=== PATIENT | female | born 1975 | race African-American/Black ===

== ENCOUNTER 2016-03-04 18:57 | Emergency (ER) ==
[2016-03-04 19:05] VITALS: BP 116/80; TEMP 96.2; BMI 34.3
[2016-03-04] MEDS ORDERED: DILAUDID 1 MG/ML SYRINGE IM STA (19:17)
[2016-03-04] MEDS ORDERED: PHENERGAN 25 MG/ML VIAL IM STA (19:17)
--- NOTE | 2016-03-04 19:21 | ED.PDOC ---
General ED Provider: Dr. 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 Time Seen by Physician: 19:19 Mode of Arrival: Walk-In Information Source: Patient Primary Care Provider: SUZANNE MENDOZA-[facility] Nursing and Triage Documentation Reviewed and Agree: Yes Neurological Complaint Exam - Headache Complaint/Exam Onset: Gradual Symptoms Are: Still present Timing: Constant Episodes Lasting: Hours Worst Headache Ever: No Initial Severity: Severe Current Severity: Severe Location: Occipital Character: Reports: Throbbing, Typical headache Aggravating: Reports: Position change, Bright lights Alleviating: Reports: None Associated Signs and Symptoms: Denies: Dizziness, Seizure, Nausea, Vomiting, Sinus pressure, Fever, Neck pain, Neck stiffness, Decreased LOC, Visual changes Related History: Reports: Similar episode Related Surgical History: Reports: None SAH Risk Factors: Reports: None Meningitis Risk Factors: Reports: None SDH Risk Factors: Reports: None Temporal Arteritis Risk Factors: Reports: None Normal Head CT Within Last 12 Months: No (Pitutary adenoma) Temporal Artery Tenderness: Present: None Sinus Tenderness: Present: None TMJ Tenderness: Present: None Meningeal Signs Positive: No Pain on Passive Flexion-Positive Kernig's: No ROM Limited In: No Limitiations Focal Weakness: Present: None Focal Sensory Loss: Present: None Gait: Normal Nystagmus Present: No Gag Reflex Present: Yes [id number]: Normal Findings Romberg Test Positive: No Babinski Sign: Negative Right, Negative Left Differential Diagnoses: Migraine Review of Systems - Review Of Systems Constitutional: Reports: No symptoms Eyes: Reports: No symptoms Ears, Nose, Mouth, Throat: Reports: No symptoms Respiratory: Reports: No symptoms Cardiac: Reports: No symptoms GI: Reports: No symptoms : Reports: No symptoms Musculoskeletal: Reports: No symptoms Skin: Reports: No symptoms Neurological: Reports: Headache Endocrine: Reports: No symptoms Hematologic/Lymphatic: Reports: No symptoms All Other Systems: Reviewed and Negative Past Medical History - Past Medical History Previously Healthy: Yes Endocrine: Reports: None Cardiovascular: Reports: Hypertension Respiratory: Reports: None Hematological: Reports: None Gastrointestinal: Reports: GERD Genitourinary: Reports: None Neuro/Psych: Reports: Migraine Musculoskeletal: Reports: None Cancer: Reports: None Last Menstrual Period: HYSTERECTOMY Other Pertinent Past Medical History: HYPOGLYCEMIA - Surgical History General Surgical History: Reports: Hysterectomy ([id number]) - Family History Family History: Reports: Unknown - Social History Smoking Status: Never smoker Hx Substance Use: No Alcohol Screening: None - Immunizations Tetanus Shot up to Date: No Physical Exam - Physical Exam Appearance: Ill-appearing, Obese Pain Distress: Severe Eyes: RUDOLPH, EOMI ENT: Ears normal, Nose normal, Oropharynx normal Respiratory: Airway patent, Breath sounds clear, Breath sounds equal, Respirations nonlabored Cardiovascular: RRR, Pulses normal, No rub, No murmur GI/: Soft, Nontender, No masses, Bowel sounds normal, No Organomegaly Musculoskeletal: Normal strength, ROM intact, No edema, No calf tenderness Skin: Warm, Dry, Normal color Neurological: Sensation intact, Motor intact, Reflexes intact, Cranial nerves intact, Alert, Oriented Psychiatric: Affect appropriate, Mood appropriate Critical Care Note - Critical Care Note Total Time (mins): 0 Course - Course Orders, Labs, Meds: Orders Category Date Time Status Hydromorphone HCl [Dilaudid 1 mg/ml Syringe] MEDS 03/04/16 19:17 Stat 1 mg IM ONCE STA Promethazine HCl [Phenergan 25 mg/ml Vial] MEDS 03/04/16 19:17 Stat 25 mg IM ONCE STA Medications Discontinued Medications Generic Name Dose Route Start Last Admin Trade Name Grisel PRN Reason Stop Dose Admin Hydromorphone HCl 1 mg 03/04/16 19:17 Dilaudid 1 Mg/Ml Syringe IM 03/04/16 19:18 ONCE STA Promethazine HCl 25 mg 03/04/16 19:17 Phenergan 25 Mg/Ml Vial IM 03/04/16 19:18 ONCE STA Vital Signs: Temp Pulse Resp BP Pulse Ox 03/04/16 18:57 96.2 F L 97 H 16 116/80 99 Departure - Departure Time of Disposition: 20:00 Disposition: HOME SELF-CARE Discharge Problem: Migraine headache Qualifiers: Migraine type: chronic without aura Status migrainosus presence: without status migrainosus Intractability: not intractable Qualifier Code: (G43.709) Chronic migraine without aura, not intractable, without status migrainosus Condition: Stable Pt referred to PMD for follow-up: Yes Additional Instructions: Keep f/u with neurologist as scheduled Allergies/Adverse Reactions: Allergies hydrocodone bitartrate [From Vicodin] Allergy (Severe, Verified 03/04/16 19:02) Vomiting acetaminophen [From Darvocet-N] Adverse Reaction (Verified 03/04/16 19:02) Vomiting azithromycin [From Zithromax] Adverse Reaction (Verified 03/04/16 19:02) Difficulty Swallowing clarithromycin [From Biaxin] Adverse Reaction (Verified 03/04/16 19:02) Vomiting ketorolac tromethamine [From Toradol] Adverse Reaction (Verified 03/04/16 19:02) Difficulty Swallowing propoxyphene napsylate [From Darvocet-N] Adverse Reaction (Verified 03/04/16 19: 02) Vomiting sumatriptan [From Imitrex] Adverse Reaction (Verified 03/04/16 19:02) Difficulty Swallowing sumatriptan succinate [From Imitrex] Adverse Reaction (Verified 03/04/16 19:02) Difficulty Swallowing Home Medications: Ambulatory Orders Multivitamin 1 each PO DAILY 04/27/14 Promethazine HCl [Phenergan Tab] 25 mg PO QID PRN #12 tablet 05/04/15 Disposition Discussed With: Patient
== END 2016-03-04 20:19 | disposition home or self-care (01) ==
LOC: ED 18:57
DX: G43.709 Chronic migraine without aura, not intractable, without status migrainosus (principal)
CPT/HCPCS: 96372; 99282; 99283

== ENCOUNTER 2016-03-23 19:34 | Emergency (ER) ==
[2016-03-23 19:41] VITALS: BP 126/85; TEMP 98.4; BMI 34.3
[2016-03-23] MEDS ORDERED: PHENERGAN 25 MG/ML VIAL IM STA (19:42)
[2016-03-23] MEDS ORDERED: DILAUDID 2 MG/ML SYRINGE IM STA (19:42)
--- NOTE | 2016-03-23 19:46 | ED.PDOC ---
General ED Provider: Dr. VÍCTOR CHAUDHRY-ER Chief Complaint: Headache Stated Complaint: my head is killing me--im sick at my stomach--this is like my usual cruz Time Seen by Physician: 19:40 Mode of Arrival: Walk-In Information Source: Patient Exam Limitations: No limitations Primary Care [facility] and Triage Documentation Reviewed and Agree: Yes Neurological Complaint Exam - Headache Complaint/Exam Onset: Gradual Duration: 4 days Symptoms Are: Still present Timing: Constant Episodes Lasting: Days Worst Headache Ever: No Initial Severity: Mild Current Severity: Moderate Location: Temporal Character: Reports: Dull, Throbbing, Pressure, Typical headache, Migraine Aggravating: Reports: Bright lights Alleviating: Reports: None Associated Signs and Symptoms: Reports: Nausea, Vomiting. Denies: Dizziness, Seizure, Sinus pressure, Fever, Neck pain, Decreased LOC, Visual changes Related History: Reports: Similar episode ("just like my other cruz"). Denies: Recent trauma, Remote trauma Related Surgical History: Reports: None SAH Risk Factors: Reports: -chinese Meningitis Risk Factors: Reports: None SDH Risk Factors: Reports: None Temporal Arteritis Risk Factors: Reports: Female Normal Head CT Within Last 12 Months: Yes Fundoscopic Exam: Present: Normal Findings Papilledema Present: No Temporal Artery Tenderness: Present: None Sinus Tenderness: Present: None TMJ Tenderness: Present: None Glascow Coma Scale (see protocol): 15 Meningeal Signs Positive: No Pain on Passive Flexion-Positive Kernig's: No ROM Limited In: No Limitiations Focal Weakness: Present: None Focal Sensory Loss: Present: None Gait: Normal Nystagmus Present: No Gag Reflex Present: No [id number]: Normal Findings Romberg Test Positive: No Babinski Sign: Negative Right, Negative Left Heel to Toe Normal: Yes Differential Diagnoses: Migraine Review of Systems - Review Of Systems Constitutional: Reports: No symptoms Eyes: Reports: No symptoms Ears, Nose, Mouth, Throat: Reports: No symptoms Respiratory: Reports: No symptoms Cardiac: Reports: No symptoms GI: Reports: No symptoms : Reports: No symptoms Musculoskeletal: Reports: No symptoms Skin: Reports: No symptoms Neurological: Reports: Headache Endocrine: Reports: No symptoms Hematologic/Lymphatic: Reports: No symptoms All Other Systems: Reviewed and Negative Past Medical History - Past Medical History Previously Healthy: Yes Endocrine: Reports: None Cardiovascular: Reports: Hypertension Respiratory: Reports: None Hematological: Reports: None Gastrointestinal: Reports: GERD Genitourinary: Reports: None Neuro/Psych: Reports: Migraine Musculoskeletal: Reports: None Cancer: Reports: None Last Menstrual Period: 2002 Other Pertinent Past Medical History: HYPOGLYCEMIA - Surgical History General Surgical History: Reports: Hysterectomy ([id number]) - Family History Family History: Reports: Unknown - Social History Smoking Status: Never smoker Hx Substance Use: No Alcohol Screening: None Lives: With family - Immunizations Tetanus Shot up to Date: Yes Physical Exam - Physical Exam Appearance: Well-appearing, No pain distress, Well-nourished Pain Distress: Moderate Eyes: RUDOLPH, EOMI, Conjunctiva clear ENT: Ears normal Neck: Supple Respiratory: Airway patent, Breath sounds clear, Breath sounds equal, Respirations nonlabored Cardiovascular: RRR, Pulses normal, No rub, No murmur GI/: Soft, Nontender, No masses, Bowel sounds normal, No Organomegaly Musculoskeletal: Normal strength, ROM intact, No edema, No calf tenderness Skin: Warm, Dry, Normal color Neurological: Sensation intact, Motor intact, Reflexes intact, Cranial nerves intact, Alert, Oriented Psychiatric: Affect appropriate, Mood appropriate Re-Evaluation - Re-Evaluation Time of Re-Evaluation: 20:10 Status: Improved Vital Signs Stable: Yes Pain Level: 2 Appearance: NAD Lungs: Clear Skin: Warm and Dry Neuro: Alert and Oriented X3 CV: RRR Critical Care Note - Critical Care Note Total Time (mins): 0 Course - Course Orders, Labs, Meds: Orders Category Date Time Status Hydromorphone HCl/Pf [Dilaudid 2 mg/ml Syringe] MEDS 03/23/16 19:42 Discontinued 2 mg IM ONCE STA Promethazine HCl [Phenergan 25 mg/ml Vial] MEDS 03/23/16 19:42 Discontinued 25 mg IM ONCE STA Medications Discontinued Medications Generic Name Dose Route Start Last Admin Trade Name Freq PRN Reason Stop Dose Admin Hydromorphone HCl 2 mg 03/23/16 19:42 Dilaudid 2 Mg/Ml Syringe IM 03/23/16 19:43 ONCE STA Promethazine HCl 25 mg 03/23/16 19:42 Phenergan 25 Mg/Ml Vial IM 03/23/16 19:43 ONCE STA Vital Signs: Temp Pulse Resp BP Pulse Ox 03/23/16 19:34 98.4 F 104 H 20 126/85 95 Departure - Departure Time of Disposition: 19:46 Disposition: HOME SELF-CARE Discharge Problem: Migraine headache Qualifiers: Migraine type: other Status migrainosus presence: without status migrainosus Intractability: not intractable Qualifier Code: (G43.809) Other migraine, not intractable, without status migrainosus Instructions: Migraine Headache (ED) Condition: Good Pt referred to PMD for follow-up: Yes Additional Instructions: f/u with pcp Allergies/Adverse Reactions: Allergies hydrocodone bitartrate [From Vicodin] Allergy (Severe, Verified 03/23/16 19:39) Vomiting acetaminophen [From Darvocet-N] Adverse Reaction (Verified 03/23/16 19:39) Vomiting azithromycin [From Zithromax] Adverse Reaction (Verified 03/23/16 19:39) Difficulty Swallowing clarithromycin [From Biaxin] Adverse Reaction (Verified 03/23/16 19:39) Vomiting ketorolac tromethamine [From Toradol] Adverse Reaction (Verified 03/23/16 19:39) Difficulty Swallowing propoxyphene napsylate [From Darvocet-N] Adverse Reaction (Verified 03/23/16 19: 39) Vomiting sumatriptan [From Imitrex] Adverse Reaction (Verified 03/23/16 19:39) Difficulty Swallowing sumatriptan succinate [From Imitrex] Adverse Reaction (Verified 03/23/16 19:39) Difficulty Swallowing Home Medications: Ambulatory Orders Multivitamin 1 each PO DAILY 04/27/14 Promethazine HCl [Phenergan Tab] 25 mg PO QID PRN #12 tablet 05/04/15 Disposition Discussed With: Patient
== END 2016-03-23 20:40 | disposition home or self-care (01) ==
LOC: ED 19:34
DX: G43.809 Other migraine, not intractable, without status migrainosus (principal)
CPT/HCPCS: 96372; 99282; 99283

== ENCOUNTER 2016-04-08 17:44 | Emergency (ER) ==
[2016-04-08 17:49] VITALS: BP 120/79; TEMP 97.4; BMI 33.5
[2016-04-08] MEDS ORDERED: DILAUDID 2 MG/ML SYRINGE IM STA (19:25)
[2016-04-08] MEDS ORDERED: PHENERGAN 25 MG/ML VIAL IM STA (19:25)
--- NOTE | 2016-04-08 20:14 | ED.PDOC ---
General ED Provider: Dr. SAVANNA BOWMAN Chief Complaint: Headache Stated Complaint: patient state she has had headches for the past two days. she has has these headache for a while does not want to go to pain management ' they do bad things" PCP and Neurosurgeon would not prescribe any pain medications. She is waiting to get brain surgery and eye surgery. Most Recent MRI Showed EMPTY sella. Time Seen by Physician: 19:40 Mode of Arrival: Walk-In Information Source: Patient [facility] and Triage Documentation Reviewed and Agree: Yes Review of Systems - Review Of Systems Constitutional: Reports: No symptoms Eyes: Reports: No symptoms Ears, Nose, Mouth, Throat: Reports: No symptoms Respiratory: Reports: No symptoms Cardiac: Reports: No symptoms GI: Reports: Nausea : Reports: No symptoms Musculoskeletal: Reports: No symptoms Skin: Reports: No symptoms Neurological: Reports: Headache Endocrine: Reports: No symptoms Hematologic/Lymphatic: Reports: No symptoms All Other Systems: Reviewed and Negative Past Medical History - Past Medical History Previously Healthy: Yes Endocrine: Reports: None Cardiovascular: Reports: Hypertension Respiratory: Reports: None Hematological: Reports: None Gastrointestinal: Reports: GERD Genitourinary: Reports: None Neuro/Psych: Reports: Migraine Musculoskeletal: Reports: None Cancer: Reports: None Last Menstrual Period: hysterectomy Other Pertinent Past Medical History: HYPOGLYCEMIA - Surgical History General Surgical History: Reports: Hysterectomy ([id number]) - Family History Family History: Reports: Unknown - Social History Smoking Status: Never smoker Hx Substance Use: No Alcohol Screening: None Physical Exam - Physical Exam Appearance: Ill-appearing, Obese Pain Distress: Severe Eyes: RUDOLPH, EOMI, Conjunctiva clear Neck: Supple Respiratory: Airway patent, Breath sounds clear, Breath sounds equal, Respirations nonlabored Cardiovascular: Pulses normal, Tachycardia GI/: Soft Musculoskeletal: Normal strength, ROM intact, No edema, No calf tenderness Skin: Warm, Dry, Normal color Neurological: Sensation intact, Motor intact, Reflexes intact, Cranial nerves intact, Alert, Oriented Psychiatric: Anxious Re-Evaluation - Re-Evaluation Time of Re-Evaluation: 20:18 Status: Improved Critical Care Note - Critical Care Note Total Time (mins): 0 Course - Course Orders, Labs, Meds: Orders Category Date Time Status Hydromorphone HCl/Pf [Dilaudid 2 mg/ml Syringe] MEDS 04/08/16 19:25 Discontinued 2 mg IM ONCE STA Promethazine HCl [Phenergan 25 mg/ml Vial] MEDS 04/08/16 19:25 Discontinued 25 mg IM ONCE STA Medications Discontinued Medications Generic Name Dose Route Start Last Admin Trade Name Freq PRN Reason Stop Dose Admin Hydromorphone HCl 2 mg 04/08/16 19:25 04/08/16 19:38 Dilaudid 2 Mg/Ml Syringe IM 04/08/16 19:26 2 mg ONCE STA Administration Promethazine HCl 25 mg 04/08/16 19:25 04/08/16 19:35 Phenergan 25 Mg/Ml Vial IM 04/08/16 19:26 25 mg ONCE STA Administration Vital Signs: Temp Pulse Resp BP Pulse Ox 04/08/16 17:44 97.4 F L 106 H 20 120/79 98 Departure - Departure Time of Disposition: 20:14 Disposition: HOME SELF-CARE Discharge Problem: Headache Instructions: General Headache (ED) Condition: Fair Pt referred to PMD for follow-up: Yes Additional Instructions: FOLLOW UP WITH YOUR PCP FOR REFERRAL TO PAIN MANAGEMENT OF THIS CHORIC PAIN THERE ARE TREATMENT THAT PAIN MANAGEMENT CAN PROVIDE TO GIVE YOU THE RELIEF YOU NEED KEEP APT WITH BRAIN SURGEON. Allergies/Adverse Reactions: Allergies hydrocodone bitartrate [From Vicodin] Allergy (Severe, Verified 04/08/16 17:51) Vomiting acetaminophen [From Darvocet-N] Adverse Reaction (Verified 04/08/16 17:51) Vomiting azithromycin [From Zithromax] Adverse Reaction (Verified 04/08/16 17:51) Difficulty Swallowing clarithromycin [From Biaxin] Adverse Reaction (Verified 04/08/16 17:51) Vomiting ketorolac tromethamine [From Toradol] Adverse Reaction (Verified 04/08/16 17:51) Difficulty Swallowing propoxyphene napsylate [From Darvocet-N] Adverse Reaction (Verified 04/08/16 17: 51) Vomiting sumatriptan [From Imitrex] Adverse Reaction (Verified 04/08/16 17:51) Difficulty Swallowing sumatriptan succinate [From Imitrex] Adverse Reaction (Verified 04/08/16 17:51) Difficulty Swallowing Home Medications: Ambulatory Orders Multivitamin 1 each PO DAILY 04/27/14 Promethazine HCl [Phenergan Tab] 25 mg PO QID PRN #12 tablet 05/04/15 Disposition Discussed With: Patient
== END 2016-04-08 20:24 | disposition home or self-care (01) ==
LOC: ED 17:44
DX: G44.229 Chronic tension-type headache, not intractable (principal); I10 Essential (primary) hypertension
CPT/HCPCS: 96372; 99283

== ENCOUNTER 2016-04-30 19:27 | Emergency (ER) ==
[2016-04-30] MEDS ORDERED: PHENERGAN 25 MG/ML VIAL IM STA (19:33)
[2016-04-30] MEDS ORDERED: DILAUDID 2 MG/ML SYRINGE IM STA (19:33)
[2016-04-30 19:34] VITALS: BP 143/95; TEMP 97.8; BMI 34.8
--- NOTE | 2016-04-30 19:36 | ED.PDOC ---
General ED Provider: Dr. VÍCTOR CHAUDHRY-ER Chief Complaint: Headache Stated Complaint: ponce got a migraine Time Seen by Physician: 19:30 Mode of Arrival: Walk-In Information Source: Patient Exam Limitations: No limitations Nursing and Triage Documentation Reviewed and Agree: Yes Neurological Complaint Exam - Headache Complaint/Exam Onset: Gradual Duration: several hours Symptoms Are: Still present Timing: Constant Episodes Lasting: Hours Worst Headache Ever: No Initial Severity: Mild Current Severity: Moderate Location: Diffuse Character: Reports: Dull, Throbbing, Migraine Aggravating: Reports: Bright lights Alleviating: Reports: None Associated Signs and Symptoms: Reports: Nausea, Vomiting. Denies: Dizziness, Seizure, Sinus pressure, Fever, Neck pain, Neck stiffness, Decreased LOC, Visual changes Related History: Reports: Similar episode Related Surgical History: Reports: None SAH Risk Factors: Reports: None Meningitis Risk Factors: Reports: None SDH Risk Factors: Reports: None Temporal Arteritis Risk Factors: Reports: Female Normal Head CT Within Last 12 Months: Yes Fundoscopic Exam: Present: Normal Findings Papilledema Present: No Temporal Artery Tenderness: Present: None Sinus Tenderness: Present: None TMJ Tenderness: Present: None Glascow Coma Scale (see protocol): 15 Meningeal Signs Positive: No Pain on Passive Flexion-Positive Kernig's: No ROM Limited In: No Limitiations Focal Weakness: Present: None Focal Sensory Loss: Present: None Gait: Normal Nystagmus Present: No Gag Reflex Present: Yes [id number]: Normal Findings Romberg Test Positive: No Babinski Sign: Negative Right, Negative Left Heel to Toe Normal: Yes Differential Diagnoses: Migraine Review of Systems - Review Of Systems Constitutional: Reports: No symptoms Eyes: Reports: No symptoms Ears, Nose, Mouth, Throat: Reports: No symptoms Respiratory: Reports: No symptoms Cardiac: Reports: No symptoms GI: Reports: Nausea : Reports: No symptoms Musculoskeletal: Reports: No symptoms Skin: Reports: No symptoms Neurological: Reports: Headache Endocrine: Reports: No symptoms Hematologic/Lymphatic: Reports: No symptoms All Other Systems: Reviewed and Negative Past Medical History - Past Medical History Previously Healthy: Yes Endocrine: Reports: None Cardiovascular: Reports: Hypertension Respiratory: Reports: None Hematological: Reports: None Gastrointestinal: Reports: GERD Genitourinary: Reports: None Neuro/Psych: Reports: Migraine Musculoskeletal: Reports: None Cancer: Reports: None Last Menstrual Period: none Other Pertinent Past Medical History: HYPOGLYCEMIA - Surgical History General Surgical History: Reports: Hysterectomy ([id number]) - Family History Family History: Reports: Unknown - Social History Smoking Status: Never smoker Hx Substance Use: No Alcohol Screening: None Lives: With family Physical Exam - Physical Exam Appearance: Well-appearing, No pain distress, Well-nourished Pain Distress: Moderate Eyes: RUDOLPH, EOMI, Conjunctiva clear ENT: Ears normal, Nose normal, Oropharynx normal Neck: Supple Respiratory: Airway patent, Breath sounds clear, Breath sounds equal, Respirations nonlabored Cardiovascular: RRR, Pulses normal, No rub, No murmur GI/: Soft, Nontender, No masses, Bowel sounds normal, No Organomegaly Musculoskeletal: Normal strength, ROM intact, No edema, No calf tenderness Skin: Warm, Dry, Normal color Neurological: Sensation intact Psychiatric: Affect appropriate, Mood appropriate Re-Evaluation - Re-Evaluation Time of Re-Evaluation: 20:00 Status: Improved Vital Signs Stable: Yes Pain Level: 1 Appearance: NAD Lungs: Clear Skin: Warm and Dry Neuro: Alert and Oriented X3 CV: RRR Critical Care Note - Critical Care Note Total Time (mins): 0 Course - Course Orders, Labs, Meds: Orders Category Date Time Status Hydromorphone HCl/Pf [Dilaudid 2 mg/ml Syringe] MEDS 04/30/16 19:33 Discontinued 2 mg IM ONCE STA Promethazine HCl [Phenergan 25 mg/ml Vial] MEDS 04/30/16 19:33 Discontinued 25 mg IM ONCE STA Medications Discontinued Medications Generic Name Dose Route Start Last Admin Trade Name Freq PRN Reason Stop Dose Admin Hydromorphone HCl 2 mg 04/30/16 19:33 Dilaudid 2 Mg/Ml Syringe IM 04/30/16 19:34 ONCE STA Promethazine HCl 25 mg 04/30/16 19:33 Phenergan 25 Mg/Ml Vial IM 04/30/16 19:34 ONCE STA Vital Signs: Temp Pulse Resp BP Pulse Ox 04/30/16 19:28 97.8 F 104 H 18 143/95 H 99 Departure - Departure Time of Disposition: 19:36 Disposition: HOME SELF-CARE Discharge Problem: Migraine headache Qualifiers: Migraine type: unspecified Status migrainosus presence: without status migrainosus Intractability: not intractable Qualifier Code: (G43.909) Migraine, unspecified, not intractable, without status migrainosus Instructions: Migraine Headache (ED) Condition: Good Pt referred to PMD for follow-up: Yes Additional Instructions: f/u wtih pcp Allergies/Adverse Reactions: Allergies hydrocodone bitartrate [From Vicodin] Allergy (Severe, Verified 04/08/16 17:51) Vomiting acetaminophen [From Darvocet-N] Adverse Reaction (Verified 04/08/16 17:51) Vomiting azithromycin [From Zithromax] Adverse Reaction (Verified 04/08/16 17:51) Difficulty Swallowing clarithromycin [From Biaxin] Adverse Reaction (Verified 04/08/16 17:51) Vomiting ketorolac tromethamine [From Toradol] Adverse Reaction (Verified 04/08/16 17:51) Difficulty Swallowing propoxyphene napsylate [From Darvocet-N] Adverse Reaction (Verified 04/08/16 17: 51) Vomiting sumatriptan [From Imitrex] Adverse Reaction (Verified 04/08/16 17:51) Difficulty Swallowing sumatriptan succinate [From Imitrex] Adverse Reaction (Verified 04/08/16 17:51) Difficulty Swallowing Home Medications: Ambulatory Orders Multivitamin 1 each PO DAILY 04/27/14 Promethazine HCl [Phenergan Tab] 25 mg PO QID PRN #12 tablet 05/04/15 Disposition Discussed With: Patient
== END 2016-04-30 19:57 | disposition home or self-care (01) ==
LOC: ED 19:27
DX: G43.909 Migraine, unspecified, not intractable, without status migrainosus (principal)
CPT/HCPCS: 96372; 99282

== ENCOUNTER 2016-06-03 08:12 | Emergency (ER) ==
[2016-06-03 08:19] VITALS: BP 131/83; TEMP 98.8; BMI 35.5
[2016-06-03] MEDS ORDERED: ZOFRAN 4 MG/2 ML IM STA (08:38)
--- NOTE | 2016-06-03 08:46 | ED.PDOC ---
General ED Provider: Dr. BRE RODRIGUEZ Chief Complaint: Headache Stated Complaint: left sided facial pain and headache post sinus surgey Time Seen by Physician: 08:16 (sinus surgery on may 05) Mode of Arrival: Walk-In Information Source: Patient Exam Limitations: No limitations [facility] Nursing and Triage Documentation Reviewed and Agree: Yes Neurological Complaint Exam - Headache Complaint/Exam Onset: Gradual Duration: 1 day Symptoms Are: Still present Timing: Constant Episodes Lasting: Hours Worst Headache Ever: No Initial Severity: Moderate Current Severity: Moderate Location: Left Character: Reports: Pressure, Typical headache Alleviating: Reports: None Associated Signs and Symptoms: Denies: Dizziness, Seizure, Nausea, Vomiting, Sinus pressure, Fever, Neck pain, Neck stiffness, Decreased LOC, Visual changes Related Surgical History: Reports: None (but has had sinus surgery) SAH Risk Factors: Reports: -cuban Meningitis Risk Factors: Reports: None SDH Risk Factors: Reports: None Temporal Arteritis Risk Factors: Reports: None Normal Head CT Within Last 12 Months: No Fundoscopic Exam: Present: Normal Findings Papilledema Present: No Temporal Artery Tenderness: Present: None Sinus Tenderness: Present: None TMJ Tenderness: Present: None Glascow Coma Scale (see protocol): 15 Meningeal Signs Positive: No Pain on Passive Flexion-Positive Kernig's: No ROM Limited In: No Limitiations Focal Weakness: Present: None Focal Sensory Loss: Present: None Gait: Normal Nystagmus Present: No Gag Reflex Present: Yes Differential Diagnoses: Sinus Headache Review of Systems - Review Of Systems Constitutional: Reports: No symptoms Eyes: Reports: No symptoms Ears, Nose, Mouth, Throat: Reports: No symptoms Respiratory: Reports: No symptoms Cardiac: Reports: No symptoms GI: Reports: No symptoms : Reports: No symptoms Musculoskeletal: Reports: No symptoms Skin: Reports: No symptoms Neurological: Reports: Headache (left max sinus pain) Endocrine: Reports: No symptoms Hematologic/Lymphatic: Reports: No symptoms All Other Systems: Reviewed and Negative Past Medical History - Past Medical History Previously Healthy: Yes Endocrine: Reports: None Cardiovascular: Reports: Hypertension Respiratory: Reports: None Hematological: Reports: None Gastrointestinal: Reports: GERD Genitourinary: Reports: None Neuro/Psych: Reports: Migraine Musculoskeletal: Reports: None Cancer: Reports: None Last Menstrual Period: n/a Other Pertinent Past Medical History: HYPOGLYCEMIA - Surgical History General Surgical History: Reports: Hysterectomy ([id number]) - Family History Family History: Reports: Unknown - Social History Smoking Status: Never smoker Hx Substance Use: No Alcohol Screening: None Physical Exam - Physical Exam Appearance: Well-appearing, No pain distress, Well-nourished Eyes: RUDOLPH, EOMI, Conjunctiva clear ENT: Ears normal, Nose normal, Oropharynx normal Respiratory: Airway patent, Breath sounds clear, Breath sounds equal, Respirations nonlabored Cardiovascular: RRR, Pulses normal, No rub, No murmur GI/: Soft, Nontender, No masses, Bowel sounds normal, No Organomegaly Musculoskeletal: Normal strength, ROM intact, No edema, No calf tenderness Skin: Warm, Dry, Normal color Neurological: Sensation intact, Motor intact, Reflexes intact, Cranial nerves intact, Alert, Oriented Psychiatric: Affect appropriate, Mood appropriate Physician Notification - Case Discussed Physician Notified: PMD PA SHE WILL MAKE AN APPOINTMENT FOR PT Time of Notification: 08:47 Critical Care Note - Critical Care Note Total Time (mins): 0 Course - Course Orders, Labs, Meds: Orders Category Date Time Status Morphine Sulfate [Morphine 4 mg/ml Syringe] MEDS 06/03/16 08:38 Discontinued 4 mg IM ONCE STA Ondansetron HCl/Pf [Zofran 4 mg/2 ml] MEDS 06/03/16 08:38 Discontinued 4 mg IM ONCE STA Medications Discontinued Medications Generic Name Dose Route Start Last Admin Trade Name Freq PRN Reason Stop Dose Admin Morphine Sulfate 4 mg 06/03/16 08:38 06/03/16 08:48 Morphine 4 Mg/Ml Syringe IM 06/03/16 08:39 4 mg ONCE STA Administration Ondansetron HCl 4 mg 06/03/16 08:38 06/03/16 08:50 Zofran 4 Mg/2 Ml IM 06/03/16 08:39 4 mg ONCE STA Administration Vital Signs: Temp Pulse Resp BP Pulse Ox 06/03/16 08:13 98.8 F 103 H 16 131/83 97 Departure - Departure Time of Disposition: 10:00 Disposition: HOME SELF-CARE Discharge Problem: Headache Instructions: Acute Headache (ED) Condition: Good Pt referred to PMD for follow-up: Yes Additional Instructions: Please call your Family Physician as soon as possible to schedule a follow-up appointment. YOU HAVE AN APPOINTMENT TODAY WITH [facility] AT 1 PM TODAY AT [facility]. Allergies/Adverse Reactions: Allergies hydrocodone bitartrate [From Vicodin] Allergy (Severe, Verified 06/03/16 08:19) Vomiting acetaminophen [From Darvocet-N] Adverse Reaction (Verified 06/03/16 08:19) Vomiting azithromycin [From Zithromax] Adverse Reaction (Verified 06/03/16 08:19) Difficulty Swallowing clarithromycin [From Biaxin] Adverse Reaction (Verified 06/03/16 08:19) Vomiting ketorolac tromethamine [From Toradol] Adverse Reaction (Verified 06/03/16 08:19) Difficulty Swallowing propoxyphene napsylate [From Darvocet-N] Adverse Reaction (Verified 06/03/16 08: 19) Vomiting sumatriptan [From Imitrex] Adverse Reaction (Verified 06/03/16 08:19) Difficulty Swallowing sumatriptan succinate [From Imitrex] Adverse Reaction (Verified 06/03/16 08:19) Difficulty Swallowing Home Medications: Ambulatory Orders Multivitamin 1 each PO DAILY 04/27/14 Promethazine HCl [Phenergan Tab] 25 mg PO QID PRN #12 tablet 05/04/15 Cephalexin 500 mg PO QID 06/03/16 Oxycodone-Acetaminophen 5-325 [Percocet 5-325] 1 tab PO Q4H PRN 06/03/16
[2016-06-03] MEDS: MORPHINE 4 MG/ML SYRINGE IM STA ×2 (08:48)
== END 2016-06-03 10:07 | disposition home or self-care (01) ==
LOC: ED 08:12
DX: R51 Headache (principal); Z98.890 Other specified postprocedural states
CPT/HCPCS: 96372; 99283

== ENCOUNTER 2016-06-24 19:20 | Emergency (ER) ==
[2016-06-24 19:20] VITALS: BMI 35.5
[2016-06-24 19:31] VITALS: BP 121/84; TEMP 97.3
[2016-06-24] MEDS ORDERED: PHENERGAN 25 MG/ML VIAL 25 MG in SODIUM CHLORIDE 50 ML IV STA (19:32)
[2016-06-24] MEDS ORDERED: SODIUM CHLORIDE 1,000 ML IV STA (19:32)
[2016-06-24] MEDS ORDERED: DILAUDID 1 MG/ML SYRINGE IVP STA (19:32)
[2016-06-24] MEDS ORDERED: PHENERGAN 25 MG/ML VIAL ONE (19:40)
--- NOTE | 2016-06-24 20:21 | ED.PDOC ---
General ED Provider: Dr. VÍCTOR CHAUDHRY-ER Chief Complaint: Headache Stated Complaint: my head hurts--i had a lp last week Time Seen by Physician: 19:30 Mode of Arrival: Walk-In Information Source: Patient Exam Limitations: No limitations Nursing and Triage Documentation Reviewed and Agree: Yes Neurological Complaint Exam - Headache Complaint/Exam Onset: Gradual Duration: 2 days Symptoms Are: Still present Timing: Constant Worst Headache Ever: No Initial Severity: Mild Current Severity: Moderate Location: Diffuse Character: Reports: Dull, Throbbing, Pressure Aggravating: Reports: Bright lights Alleviating: Reports: None Associated Signs and Symptoms: Reports: Nausea. Denies: Dizziness, Seizure, Vomiting, Sinus pressure, Fever, Neck pain, Neck stiffness, Decreased LOC, Visual changes Related Surgical History: Reports: None SAH Risk Factors: Reports: None Meningitis Risk Factors: Reports: None SDH Risk Factors: Reports: None Temporal Arteritis Risk Factors: Reports: Female, Normal Head CT Within Last 12 Months: Yes Fundoscopic Exam: Present: Normal Findings Papilledema Present: No Temporal Artery Tenderness: Present: None Sinus Tenderness: Present: None TMJ Tenderness: Present: None Glascow Coma Scale (see protocol): 15 Meningeal Signs Positive: No Pain on Passive Flexion-Positive Kernig's: No ROM Limited In: No Limitiations Focal Weakness: Present: None Focal Sensory Loss: Present: None Gait: Normal Nystagmus Present: No Gag Reflex Present: Yes [id number]: Normal Findings Romberg Test Positive: No Babinski Sign: Negative Right, Negative Left Heel to Toe Normal: Yes Differential Diagnoses: Migraine, Other Review of Systems - Review Of Systems Constitutional: Reports: No symptoms Eyes: Reports: No symptoms Ears, Nose, Mouth, Throat: Reports: No symptoms Respiratory: Reports: No symptoms Cardiac: Reports: No symptoms GI: Reports: No symptoms : Reports: No symptoms Musculoskeletal: Reports: No symptoms Skin: Reports: No symptoms Neurological: Reports: Headache Endocrine: Reports: No symptoms Hematologic/Lymphatic: Reports: No symptoms All Other Systems: Reviewed and Negative Past Medical History - Past Medical History Previously Healthy: Yes Endocrine: Reports: None Cardiovascular: Reports: Hypertension Respiratory: Reports: None Hematological: Reports: None Gastrointestinal: Reports: GERD Genitourinary: Reports: None Neuro/Psych: Reports: Migraine Musculoskeletal: Reports: None Cancer: Reports: None Last Menstrual Period: none Other Pertinent Past Medical History: HYPOGLYCEMIA - Surgical History General Surgical History: Reports: Hysterectomy ([id number]) - Family History Family History: Reports: Unknown - Social History Smoking Status: Never smoker Hx Substance Use: No Alcohol Screening: None Lives: With family Physical Exam - Physical Exam Appearance: Well-appearing, No pain distress, Well-nourished Pain Distress: Moderate Eyes: RUDOLPH, EOMI, Conjunctiva clear ENT: Ears normal, Nose normal, Oropharynx normal Neck: Supple Respiratory: Airway patent, Breath sounds clear, Breath sounds equal, Respirations nonlabored Cardiovascular: RRR, Pulses normal, No rub, No murmur GI/: Soft Musculoskeletal: Normal strength, ROM intact, No edema, No calf tenderness Skin: Warm Neurological: Sensation intact, Motor intact, Reflexes intact, Cranial nerves intact, Alert, Oriented Psychiatric: Affect appropriate, Mood appropriate Re-Evaluation - Re-Evaluation Time of Re-Evaluation: 20:21 Status: Improved (no fever) Vital Signs Stable: Yes Pain Level: 1 Appearance: NAD Lungs: Clear Skin: Warm and Dry Neuro: Alert and Oriented X3 CV: RRR Critical Care Note - Critical Care Note Total Time (mins): 0 Course - Course Orders, Labs, Meds: Orders Category Date Time Status ED IV/MEDIPORT/POWERPORT .ONCE EMERGENCY 06/24/16 19:32 Active 0.9 % Sodium Chloride [Saline Flush] MEDS 06/24/16 19:32 Ordered 1 syr IVF PRN PRN Hydromorphone HCl [Dilaudid 1 mg/ml Syringe] MEDS 06/24/16 19:32 Discontinued 1 mg IVP ONCE STA Promethazine HCl [Phenergan 25 mg/ml Vial] MEDS 06/24/16 19:40 Discontinued 25 mg .ROUTE .STK-MED ONE Promethazine HCl [Phenergan 25 mg/ml Vial] 25 mg MEDS 06/24/16 19:32 Discontinued 0.9 % Sodium Chloride [Sodium Chloride] 50 ml IV ONCE Sodium Chloride 0.9% [Sodium Chloride] 1,000 ml MEDS 06/24/16 19:32 Active IV BOLUS Medications Generic Name Dose Route Start Last Admin Trade Name Freq PRN Reason Stop Dose Admin Sodium Chloride 1,000 mls @ 1,000 mls/hr 06/24/16 19:32 06/24/16 19:55 Sodium Chloride IV 06/24/16 20:31 1,000 mls/hr BOLUS STA Administration Sodium Chloride 1 syr 06/24/16 19:32 06/24/16 19:54 Saline Flush IVF 1 syr PRN PRN Administration To flush IV Discontinued Medications Generic Name Dose Route Start Last Admin Trade Name Freq PRN Reason Stop Dose Admin Hydromorphone HCl 1 mg 06/24/16 19:32 06/24/16 19:54 Dilaudid 1 Mg/Ml Syringe IVP 06/24/16 19:33 1 mg ONCE STA Administration Promethazine HCl 25 mg/ Sodium 51 mls @ 75 mls/hr 06/24/16 19:32 06/24/16 19: 58 Chloride IV 06/24/16 20:12 75 mls/hr ONCE STA Administration Vital Signs: Temp Pulse Resp BP Pulse Ox 06/24/16 19:29 97.3 F L 98 H 16 121/84 99 Departure - Departure Time of Disposition: 20:21 Disposition: HOME SELF-CARE Discharge Problem: Headache following lumbar puncture Instructions: General Headache (ED) Condition: Good Pt referred to PMD for follow-up: Yes Additional Instructions: lie flight tonight--fljuids--f/u wtih dr krishna Allergies/Adverse Reactions: Allergies hydrocodone bitartrate [From Vicodin] Allergy (Severe, Verified 06/24/16 19:32) Vomiting acetaminophen [From Darvocet-N] Adverse Reaction (Verified 06/24/16 19:32) Vomiting azithromycin [From Zithromax] Adverse Reaction (Verified 06/24/16 19:32) Difficulty Swallowing clarithromycin [From Biaxin] Adverse Reaction (Verified 06/24/16 19:32) Vomiting ketorolac tromethamine [From Toradol] Adverse Reaction (Verified 06/24/16 19:32) Difficulty Swallowing propoxyphene napsylate [From Darvocet-N] Adverse Reaction (Verified 06/24/16 19: 32) Vomiting sumatriptan [From Imitrex] Adverse Reaction (Verified 06/24/16 19:32) Difficulty Swallowing sumatriptan succinate [From Imitrex] Adverse Reaction (Verified 06/24/16 19:32) Difficulty Swallowing Home Medications: Ambulatory Orders Multivitamin 1 each PO DAILY 04/27/14 Promethazine HCl [Phenergan Tab] 25 mg PO QID PRN #12 tablet 05/04/15 Cephalexin 500 mg PO QID 06/03/16 Oxycodone-Acetaminophen 5-325 [Percocet 5-325] 1 tab PO Q4H PRN 06/03/16 Acetazolamide [Diamox] 250 mg PO Q12HR 06/24/16 Disposition Discussed With: Patient
== END 2016-06-24 20:43 | disposition home or self-care (01) ==
LOC: ED 19:20
DX: G97.1 Other reaction to spinal and lumbar puncture (principal); Y84.4 Aspiration of fluid as the cause of abnormal reaction of the patient, or of later complication, without mention of misadventure at the time of the procedure
CPT/HCPCS: 96365; 96375; 99282

== ENCOUNTER 2016-06-26 14:53 | Emergency (ER) ==
[2016-06-26] MEDS ORDERED: NORCO 10-325 PO STA (15:10)
[2016-06-26 15:21] VITALS: BP 126/83; TEMP 97.6; BMI 35.0
--- NOTE | 2016-06-26 15:43 | CT ---
EXAM: CT of the head without contrast History: Headache. Comparison: Head CT 04/05/2012 Technique: Multiplanar CT images through the head were obtained without the administration of IV co ntrast Findings: Mucosal thickening and small amount of fluid seen within the left maxillary sinus. Masto id air cells are generally clear. No acute calvarial abnormalities. Intracranially the ventricular and cisternal spaces are normal in size, shape and configuration for a patient of this age. No dominant mass or midline shift. No hydrocephalous. No acute intracrania l hemorrhage or abnormal extraaxial fluid collections. Impression: 1. No acute intracranial process. 2. Left maxillary sinus disease.
--- NOTE | 2016-06-26 15:44 | ED.PDOC ---
General ED Provider: Dr. BRE RODRIGUEZ Chief Complaint: Headache Stated Complaint: headache post L/P Time Seen by Physician: 15:00 Mode of Arrival: Walk-In Information Source: Patient Exam Limitations: No limitations Nursing and Triage Documentation Reviewed and Agree: Yes Neurological Complaint Exam - Headache Complaint/Exam Onset: Gradual Duration: 6 DAYS Symptoms Are: Still present Timing: Intermittent Episodes Lasting: Days Worst Headache Ever: No Initial Severity: Moderate Current Severity: Mild Location: Frontal, Temporal Character: Reports: Dull Aggravating: Reports: None Alleviating: Reports: None Associated Signs and Symptoms: Denies: Dizziness, Seizure, Nausea, Vomiting, Sinus pressure, Fever, Neck pain, Neck stiffness, Decreased LOC, Visual changes Related Surgical History: Reports: None SAH Risk Factors: Reports: -brazilian, Hypertension Meningitis Risk Factors: Reports: None SDH Risk Factors: Reports: None Temporal Arteritis Risk Factors: Reports: Female Normal Head CT Within Last 12 Months: Yes (CODIE ) Fundoscopic Exam: Present: Normal Findings Papilledema Present: No Temporal Artery Tenderness: Present: None Sinus Tenderness: Present: None TMJ Tenderness: Present: None Glascow Coma Scale (see protocol): 15 Meningeal Signs Positive: No Pain on Passive Flexion-Positive Kernig's: No ROM Limited In: No Limitiations Focal Weakness: Present: None Focal Sensory Loss: Present: None Gait: Normal Nystagmus Present: No Gag Reflex Present: Yes [id number]: Normal Findings Romberg Test Positive: No Babinski Sign: Negative Right, Negative Left Heel to Toe Normal: No Differential Diagnoses: Migraine Review of Systems - Review Of Systems Constitutional: Reports: No symptoms Eyes: Reports: No symptoms Ears, Nose, Mouth, Throat: Reports: No symptoms Respiratory: Reports: No symptoms Cardiac: Reports: No symptoms GI: Reports: No symptoms : Reports: No symptoms Musculoskeletal: Reports: No symptoms Skin: Reports: No symptoms Neurological: Reports: No symptoms Endocrine: Reports: No symptoms Hematologic/Lymphatic: Reports: No symptoms All Other Systems: Reviewed and Negative Past Medical History - Past Medical History Previously Healthy: Yes Endocrine: Reports: None Cardiovascular: Reports: Hypertension Respiratory: Reports: None Hematological: Reports: None Gastrointestinal: Reports: GERD Genitourinary: Reports: None Neuro/Psych: Reports: Migraine Musculoskeletal: Reports: None Cancer: Reports: None Last Menstrual Period: hysterectomy Other Pertinent Past Medical History: HYPOGLYCEMIA - Surgical History General Surgical History: Reports: Hysterectomy ([id number]) - Family History Family History: Reports: Unknown - Social History Smoking Status: Never smoker Hx Substance Use: No Alcohol Screening: None Physical Exam - Physical Exam Appearance: Well-appearing, No pain distress, Well-nourished Eyes: RUDOLPH, EOMI, Conjunctiva clear ENT: Ears normal, Nose normal, Oropharynx normal Respiratory: Airway patent, Breath sounds clear, Breath sounds equal, Respirations nonlabored Cardiovascular: RRR, Pulses normal, No rub, No murmur GI/: Soft, Nontender, No masses, Bowel sounds normal, No Organomegaly Musculoskeletal: Normal strength, ROM intact, No edema, No calf tenderness Skin: Warm, Dry, Normal color Neurological: Sensation intact, Motor intact, Reflexes intact, Cranial nerves intact, Alert, Oriented Psychiatric: Affect appropriate, Mood appropriate Interpretation - Radiology Interpretation Radiology Interpretation By: Radiologist Critical Care Note - Critical Care Note Total Time (mins): 0 Course - Course Orders, Labs, Meds: Orders Category Date Time Status CT HEAD W/O CONTRAST Stat RADS 06/26/16 15:09 Ordered Vital Signs: Temp Pulse Resp BP Pulse Ox 06/26/16 15:03 97.6 F 117 H 20 126/83 98 Departure - Departure Time of Disposition: 15:44 Disposition: HOME SELF-CARE Discharge Problem: Headache Instructions: Acute Headache (ED) Condition: Good Pt referred to PMD for follow-up: No Additional Instructions: Please call your Family Physician as soon as possible to schedule a follow-up appointment. Allergies/Adverse Reactions: Allergies hydrocodone bitartrate [From Vicodin] Allergy (Severe, Verified 06/26/16 15:13) Vomiting acetaminophen [From Darvocet-N] Adverse Reaction (Verified 06/26/16 15:13) Vomiting azithromycin [From Zithromax] Adverse Reaction (Verified 06/26/16 15:13) Difficulty Swallowing clarithromycin [From Biaxin] Adverse Reaction (Verified 06/26/16 15:13) Vomiting ketorolac tromethamine [From Toradol] Adverse Reaction (Verified 06/26/16 15:13) Difficulty Swallowing propoxyphene napsylate [From Darvocet-N] Adverse Reaction (Verified 06/26/16 15: 13) Vomiting sumatriptan [From Imitrex] Adverse Reaction (Verified 06/26/16 15:13) Difficulty Swallowing sumatriptan succinate [From Imitrex] Adverse Reaction (Verified 06/26/16 15:13) Difficulty Swallowing Home Medications: Ambulatory Orders Multivitamin 1 each PO DAILY 04/27/14 Promethazine HCl [Phenergan Tab] 25 mg PO QID PRN #12 tablet 05/04/15 Cephalexin 500 mg PO QID 06/03/16 Oxycodone-Acetaminophen 5-325 [Percocet 5-325] 1 tab PO Q4H PRN 06/03/16 Acetazolamide [Diamox] 250 mg PO Q12HR 06/24/16
== END 2016-06-26 16:05 | disposition home or self-care (01) ==
LOC: ED 14:53
DX: R51 Headache (principal); I10 Essential (primary) hypertension; Z79.899 Other long term (current) drug therapy
CPT/HCPCS: 99283

== ENCOUNTER 2016-07-23 20:42 | Emergency (ER) ==
[2016-07-23 20:47] VITALS: BP 107/74; TEMP 97; BMI 34.7
[2016-07-23] MEDS ORDERED: PHENERGAN 25 MG/ML VIAL IM STA (21:45)
[2016-07-23] MEDS ORDERED: DILAUDID 1 MG/ML SYRINGE IM STA (21:45)
--- NOTE | 2016-07-23 22:41 | ED.PDOC ---
General ED Provider: Dr. SAVANNA BOWMAN Chief Complaint: Headache Stated Complaint: complains of migraine headache that are similar to prior Time Seen by Physician: 22:39 Mode of Arrival: Walk-In Information Source: Patient Exam Limitations: No limitations Nursing and Triage Documentation Reviewed and Agree: Yes Neurological Complaint Exam - Headache Complaint/Exam Onset: Gradual Duration: 3 days Symptoms Are: Still present Timing: Constant Worst Headache Ever: No Initial Severity: Moderate Current Severity: Severe Location: Diffuse Character: Reports: Throbbing, Pressure, Migraine Aggravating: Reports: Position change, Bright lights Alleviating: Reports: None Associated Signs and Symptoms: Reports: Nausea. Denies: Dizziness, Seizure, Vomiting, Sinus pressure, Fever, Neck pain, Neck stiffness, Decreased LOC, Visual changes Related Surgical History: Reports: None SAH Risk Factors: Reports: None Meningitis Risk Factors: Reports: None SDH Risk Factors: Reports: None Temporal Arteritis Risk Factors: Reports: None Normal Head CT Within Last 12 Months: Yes Fundoscopic Exam: Present: Normal Findings Papilledema Present: No Temporal Artery Tenderness: Present: None Sinus Tenderness: Present: None TMJ Tenderness: Present: None Glascow Coma Scale (see protocol): 15 Meningeal Signs Positive: No Pain on Passive Flexion-Positive Kernig's: No ROM Limited In: No Limitiations Focal Weakness: Present: None Focal Sensory Loss: Present: None Gait: Normal Nystagmus Present: No Gag Reflex Present: Yes [id number]: Normal Findings Romberg Test Positive: No Heel to Toe Normal: No Differential Diagnoses: Migraine, Viral Syndrome Review of Systems - Review Of Systems Constitutional: Reports: No symptoms Eyes: Reports: Photophobia Ears, Nose, Mouth, Throat: Reports: No symptoms Respiratory: Reports: No symptoms Cardiac: Reports: No symptoms GI: Reports: Nausea, Poor appetite : Reports: No symptoms Musculoskeletal: Reports: No symptoms Skin: Reports: No symptoms Neurological: Reports: Headache Endocrine: Reports: No symptoms Hematologic/Lymphatic: Reports: No symptoms All Other Systems: Reviewed and Negative Past Medical History - Past Medical History Previously Healthy: Yes Endocrine: Reports: None Cardiovascular: Reports: Hypertension Respiratory: Reports: None Hematological: Reports: None Gastrointestinal: Reports: GERD Genitourinary: Reports: None Neuro/Psych: Reports: Migraine Musculoskeletal: Reports: None Cancer: Reports: None Last Menstrual Period: none Other Pertinent Past Medical History: HYPOGLYCEMIA - Surgical History General Surgical History: Reports: Hysterectomy ([id number]) - Family History Family History: Reports: Unknown - Social History Smoking Status: Never smoker Hx Substance Use: No Alcohol Screening: None Physical Exam - Physical Exam Appearance: Ill-appearing Ill-appearing: Moderate Pain Distress: Severe Eyes: RUDOLPH, EOMI, Conjunctiva clear ENT: Ears normal, Nose normal, Oropharynx normal Neck: Supple Respiratory: Airway patent, Breath sounds clear, Breath sounds equal, Respirations nonlabored Cardiovascular: Tachycardia GI/: Soft, Nontender, No masses, Bowel sounds normal, No Organomegaly Skin: Warm, Dry Neurological: Sensation intact, Motor intact, Cranial nerves intact, Alert, Oriented Psychiatric: Anxious Critical Care Note - Critical Care Note Total Time (mins): 0 Course - Course Orders, Labs, Meds: Orders Category Date Time Status Hydromorphone HCl [Dilaudid 1 mg/ml Syringe] MEDS 07/23/16 21:45 Discontinued 1 mg IM ONCE STA Promethazine HCl [Phenergan 25 mg/ml Vial] MEDS 07/23/16 21:45 Discontinued 25 mg IM ONCE STA Medications Discontinued Medications Generic Name Dose Route Start Last Admin Trade Name Freq PRN Reason Stop Dose Admin Hydromorphone HCl 1 mg 07/23/16 21:45 07/23/16 22:25 Dilaudid 1 Mg/Ml Syringe IM 07/23/16 21:46 1 mg ONCE STA Administration Promethazine HCl 25 mg 07/23/16 21:45 07/23/16 22:26 Phenergan 25 Mg/Ml Vial IM 07/23/16 21:46 25 mg ONCE STA Administration Vital Signs: Temp Pulse Resp BP Pulse Ox 07/23/16 20:43 97.0 F L 106 H 18 107/74 98 Departure - Departure Time of Disposition: 22:39 Disposition: HOME SELF-CARE Discharge Problem: Headache Migraine headache Qualifiers: Migraine type: without aura Status migrainosus presence: without status migrainosus Intractability: not intractable Qualifier Code: (G43.009) Migraine without aura, not intractable, without status migrainosus Instructions: Migraine Headache (ED) Condition: Fair Pt referred to PMD for follow-up: Yes (3 days ) Additional Instructions: Follow up with PCP and neurologist in 3 days Allergies/Adverse Reactions: Allergies hydrocodone bitartrate [From Vicodin] Allergy (Severe, Verified 07/23/16 20:47) Vomiting acetaminophen [From Darvocet-N] Adverse Reaction (Verified 07/23/16 20:47) Vomiting azithromycin [From Zithromax] Adverse Reaction (Verified 07/23/16 20:47) Difficulty Swallowing clarithromycin [From Biaxin] Adverse Reaction (Verified 07/23/16 20:47) Vomiting ketorolac tromethamine [From Toradol] Adverse Reaction (Verified 07/23/16 20:47) Difficulty Swallowing propoxyphene napsylate [From Darvocet-N] Adverse Reaction (Verified 07/23/16 20: 47) Vomiting sumatriptan [From Imitrex] Adverse Reaction (Verified 07/23/16 20:47) Difficulty Swallowing sumatriptan succinate [From Imitrex] Adverse Reaction (Verified 07/23/16 20:47) Difficulty Swallowing Home Medications: Ambulatory Orders Multivitamin 1 each PO DAILY 04/27/14 Promethazine HCl [Phenergan Tab] 25 mg PO QID PRN #12 tablet 05/04/15 Oxycodone-Acetaminophen 5-325 [Percocet 5-325] 1 tab PO Q4H PRN 06/03/16 Acetazolamide [Diamox] 250 mg PO Q12HR 06/24/16 Disposition Discussed With: Patient
== END 2016-07-23 23:00 | disposition home or self-care (01) ==
LOC: ED 20:42
DX: G43.009 Migraine without aura, not intractable, without status migrainosus (principal)
CPT/HCPCS: 96372; 99283

== ENCOUNTER 2016-08-08 15:14 | Emergency (ER) ==
[2016-08-08] MEDS ORDERED: PHENERGAN 25 MG/ML VIAL IM STA (15:17)
[2016-08-08] MEDS ORDERED: DILAUDID 2 MG/ML SYRINGE IM STA (15:17)
[2016-08-08 15:21] VITALS: BP 124/81; TEMP 98; BMI 35.0
--- NOTE | 2016-08-08 15:22 | ED.PDOC ---
General ED Provider: Dr. VÍCTOR CHAUDHRY-ER Chief Complaint: Headache Stated Complaint: ponce got a migraine cruz Time Seen by Physician: 15:20 Mode of Arrival: Walk-In Information Source: Patient Exam Limitations: No limitations Nursing and Triage Documentation Reviewed and Agree: Yes Neurological Complaint Exam - Headache Complaint/Exam Onset: Gradual Duration: several hours Symptoms Are: Still present Timing: Constant Episodes Lasting: Hours Worst Headache Ever: No Initial Severity: Mild Current Severity: Moderate Location: Diffuse Character: Reports: Dull, Throbbing, Pressure, Typical headache, Migraine Aggravating: Reports: Bright lights Alleviating: Reports: None Associated Signs and Symptoms: Reports: Nausea. Denies: Dizziness, Seizure, Vomiting, Sinus pressure, Fever, Neck pain, Neck stiffness, Decreased LOC, Visual changes Related History: Reports: Similar episode (long hx of migraine) Related Surgical History: Reports: None SAH Risk Factors: Reports: -samoan Meningitis Risk Factors: Reports: None SDH Risk Factors: Reports: None Temporal Arteritis Risk Factors: Reports: Female Normal Head CT Within Last 12 Months: Yes Fundoscopic Exam: Present: Normal Findings Papilledema Present: No Temporal Artery Tenderness: Present: None Sinus Tenderness: Present: None TMJ Tenderness: Present: None Glascow Coma Scale (see protocol): 15 Meningeal Signs Positive: No Pain on Passive Flexion-Positive Kernig's: No ROM Limited In: No Limitiations Focal Weakness: Present: None Focal Sensory Loss: Present: None Gait: Normal Nystagmus Present: No Gag Reflex Present: Yes [id number]: Normal Findings Romberg Test Positive: No Babinski Sign: Negative Right, Negative Left Heel to Toe Normal: Yes Differential Diagnoses: Migraine Review of Systems - Review Of Systems Constitutional: Reports: No symptoms Eyes: Reports: No symptoms Ears, Nose, Mouth, Throat: Reports: No symptoms Respiratory: Reports: No symptoms Cardiac: Reports: No symptoms GI: Reports: Nausea : Reports: No symptoms Musculoskeletal: Reports: No symptoms Skin: Reports: No symptoms Neurological: Reports: Headache Endocrine: Reports: No symptoms Hematologic/Lymphatic: Reports: No symptoms All Other Systems: Reviewed and Negative Past Medical History - Past Medical History Previously Healthy: Yes Endocrine: Reports: None Cardiovascular: Reports: Hypertension Respiratory: Reports: None Hematological: Reports: None Gastrointestinal: Reports: GERD Genitourinary: Reports: None Neuro/Psych: Reports: Migraine Musculoskeletal: Reports: None Cancer: Reports: None Other Pertinent Past Medical History: HYPOGLYCEMIA - Surgical History General Surgical History: Reports: Hysterectomy ([id number]) - Family History Family History: Reports: Unknown - Social History Smoking Status: Never smoker Hx Substance Use: No Alcohol Screening: None Lives: With family Physical Exam - Physical Exam Appearance: Well-appearing, No pain distress, Well-nourished Pain Distress: Moderate Eyes: RUDOLPH, EOMI, Conjunctiva clear ENT: Ears normal, Nose normal, Oropharynx normal Neck: Supple Respiratory: Airway patent, Breath sounds clear, Breath sounds equal, Respirations nonlabored Cardiovascular: RRR, Pulses normal, No rub, No murmur GI/: Soft, Nontender, No masses, Bowel sounds normal, No Organomegaly Musculoskeletal: Normal strength, ROM intact, No edema, No calf tenderness Skin: Warm, Dry, Normal color Neurological: Alert, Oriented Psychiatric: Affect appropriate, Mood appropriate Re-Evaluation - Re-Evaluation Time of Re-Evaluation: 16:00 Status: Improved Vital Signs Stable: Yes Pain Level: 1 Appearance: NAD Lungs: Clear Skin: Warm and Dry Neuro: Alert and Oriented X3 CV: RRR Critical Care Note - Critical Care Note Total Time (mins): 0 Course - Course Orders, Labs, Meds: Orders Category Date Time Status Hydromorphone HCl/Pf [Dilaudid 2 mg/ml Syringe] MEDS 08/08/16 15:17 Discontinued 2 mg IM ONCE STA Promethazine HCl [Phenergan 25 mg/ml Vial] MEDS 08/08/16 15:17 Discontinued 25 mg IM ONCE STA Medications Discontinued Medications Generic Name Dose Route Start Last Admin Trade Name Nabilq PRN Reason Stop Dose Admin Hydromorphone HCl 2 mg 08/08/16 15:17 Dilaudid 2 Mg/Ml Syringe IM 08/08/16 15:18 ONCE STA Promethazine HCl 25 mg 08/08/16 15:17 Phenergan 25 Mg/Ml Vial IM 08/08/16 15:18 ONCE STA Departure - Departure Time of Disposition: 15:22 Disposition: HOME SELF-CARE Discharge Problem: Migraine headache Qualifiers: Migraine type: unspecified Status migrainosus presence: without status migrainosus Intractability: not intractable Qualifier Code: (G43.909) Migraine, unspecified, not intractable, without status migrainosus Instructions: Migraine Headache (ED) Condition: Good Pt referred to PMD for follow-up: Yes Additional Instructions: f/u with neurology Allergies/Adverse Reactions: Allergies hydrocodone bitartrate [From Vicodin] Allergy (Severe, Verified 07/23/16 20:47) Vomiting acetaminophen [From Darvocet-N] Adverse Reaction (Verified 07/23/16 20:47) Vomiting azithromycin [From Zithromax] Adverse Reaction (Verified 07/23/16 20:47) Difficulty Swallowing clarithromycin [From Biaxin] Adverse Reaction (Verified 07/23/16 20:47) Vomiting ketorolac tromethamine [From Toradol] Adverse Reaction (Verified 07/23/16 20:47) Difficulty Swallowing propoxyphene napsylate [From Darvocet-N] Adverse Reaction (Verified 07/23/16 20: 47) Vomiting sumatriptan [From Imitrex] Adverse Reaction (Verified 07/23/16 20:47) Difficulty Swallowing sumatriptan succinate [From Imitrex] Adverse Reaction (Verified 07/23/16 20:47) Difficulty Swallowing Home Medications: Ambulatory Orders Multivitamin 1 each PO DAILY 04/27/14 Promethazine HCl [Phenergan Tab] 25 mg PO QID PRN #12 tablet 05/04/15 Oxycodone-Acetaminophen 5-325 [Percocet 5-325] 1 tab PO Q4H PRN 06/03/16 Acetazolamide [Diamox] 250 mg PO Q12HR 06/24/16 Disposition Discussed With: Patient
== END 2016-08-08 16:05 | disposition home or self-care (01) ==
LOC: ED 15:14
DX: G43.909 Migraine, unspecified, not intractable, without status migrainosus (principal)
CPT/HCPCS: 96372; 99283

== ENCOUNTER 2016-08-26 12:16 | Outpatient (CLI) ==
[2016-08-26 13:20] LABS: BASOPHILS % (AUTO) 0.5 % (0.0-3.0); EOSINOPHILS # (AUTO) 0.1 K/ul (0.0-0.7); EOSINOPHILS % (AUTO) 1.9 % (0.0-7.0); IMMATURE GRANULOCYTE % (AUTO) 0.2 % (0.0-5.0); LYMPHOCYTES # (AUTO) 2.4 K/uL (0.60-3.4); LYMPHOCYTES % (AUTO) 58.6 (10.0-50.0); MEAN CORPUSCULAR HEMOGLOBIN 32.6 pg (27.0-31.0); MEAN CORPUSCULAR VOLUME 93.2 fl (81.0-99.0); MONOCYTES # (AUTO) 0.2 K/uL (0.4-2.0); MONOCYTES % (AUTO) 5.3 (0-10); NEUTROPHILS # (AUTO) 1.4 K/ul (2.0-6.9); NEUTROPHILS % (AUTO) 33.5; PLATELET COUNT 213 10^3/uL (140-440); RED BLOOD COUNT 4.29 10^6/ul (4.20-5.40); WHITE BLOOD COUNT 4.15 K/ul (4.6-10.2)
[2016-08-26 13:55] LABS: ALBUMIN 4.2 g/dL (3.4-5.0); ALBUMIN/GLOBULIN RATIO 1.17; ANION GAP 14.2; BILIRUBIN,TOTAL 0.31 mg/dL (0.00-1.20); BUN/CREATININE RATIO 5.76; CALCIUM 9.9 mg/dL (8.2-10.2); CREATININE 1.04 mg/dL (0.60-1.30); POTASSIUM 3.2 mmol/L (3.5-5.10); TOTAL PROTEIN 7.8 g/dL (6.4-8.2)
== END 2016-08-26 12:17 | disposition home or self-care (01) ==
LOC: LAB 12:16
PROVIDERS: ATTEND Emergency Medicine
DX: I10 Essential (primary) hypertension (principal); E66.9 Obesity, unspecified; G93.2 Benign intracranial hypertension
CPT/HCPCS: 36415; 80053; 84443; 85025; 93005; 93010

== ENCOUNTER 2016-08-30 16:14 | Outpatient (CLI) ==
[2016-08-30 16:42] LABS: ALBUMIN 3.8 g/dL (3.4-5.0); ALBUMIN/GLOBULIN RATIO 1.15; ANION GAP 11.3; BILIRUBIN,TOTAL 0.21 mg/dL (0.00-1.20); BUN/CREATININE RATIO 5.68; CALCIUM 9.4 mg/dL (8.2-10.2); CREATININE 0.88 mg/dL (0.60-1.30); POTASSIUM 3.3 mmol/L (3.5-5.10); TOTAL PROTEIN 7.1 g/dL (6.4-8.2)
== END 2016-08-30 16:15 | disposition home or self-care (01) ==
LOC: LAB 16:14
PROVIDERS: ATTEND Emergency Medicine
DX: E87.6 Hypokalemia (principal)
CPT/HCPCS: 36415; 80053

== ENCOUNTER 2016-08-31 19:17 | Emergency (ER) ==
[2016-08-31 19:25] VITALS: BP 114/78; TEMP 97.5; BMI 34.7
[2016-08-31] MEDS ORDERED: PHENERGAN 25 MG/ML VIAL IM STA ×2 (19:38→19:50)
[2016-08-31] MEDS ORDERED: DILAUDID 1 MG/ML SYRINGE IM STA (19:38)
--- NOTE | 2016-08-31 19:40 | ED.PDOC ---
General ED Provider: Dr. SAVANNA BOWMAN Chief Complaint: Headache Stated Complaint: Patient is a 40 year old female who states that she has severe headache feels like prior Migrane all over. Has some vomiting four times. she has been diagnosed with hydrocephaus and is scheduled to have a shunt placed soon. Time Seen by Physician: 19:40 Mode of Arrival: Walk-In Information Source: Patient Exam Limitations: No limitations Primary Care [facility] Nursing and Triage Documentation Reviewed and Agree: Yes Review of Systems - Review Of Systems Constitutional: Reports: Loss of appetite Eyes: Reports: Photophobia Respiratory: Reports: No symptoms Cardiac: Reports: No symptoms GI: Reports: No symptoms : Reports: No symptoms Musculoskeletal: Reports: No symptoms Neurological: Reports: Anxiety, Headache Endocrine: Reports: No symptoms All Other Systems: Reviewed and Negative Past Medical History - Past Medical History Previously Healthy: Yes Endocrine: Reports: None Cardiovascular: Reports: Hypertension Respiratory: Reports: None Hematological: Reports: None Gastrointestinal: Reports: GERD Genitourinary: Reports: None Neuro/Psych: Reports: Migraine Musculoskeletal: Reports: None Cancer: Reports: None Last Menstrual Period: PT HAS HAD A HYSTERECTOMY Other Pertinent Past Medical History: HYPOGLYCEMIA - Surgical History General Surgical History: Reports: Hysterectomy ([id number]) - Family History Family History: Reports: Unknown - Social History Smoking Status: Former smoker Hx Substance Use: No Alcohol Screening: None - Immunizations Tetanus Shot up to Date: Yes Physical Exam - Physical Exam Appearance: Ill-appearing, Obese Ill-appearing: Moderate Pain Distress: Severe Eyes: RUDOLPH, EOMI, Conjunctiva clear ENT: Ears normal, Nose normal, Oropharynx normal Neck: Supple Respiratory: Airway patent, Breath sounds clear, Breath sounds equal, Respirations nonlabored Cardiovascular: RRR, Pulses normal, No rub, No murmur GI/: Soft, Nontender, No masses, Bowel sounds normal, No Organomegaly Musculoskeletal: Normal strength, ROM intact, No edema, No calf tenderness Skin: Warm, Dry, Normal color Neurological: Sensation intact, Motor intact, Reflexes intact, Cranial nerves intact, Alert, Oriented Psychiatric: Anxious Re-Evaluation - Re-Evaluation Time of Re-Evaluation: 20:45 Status: Improved Pain Level: 2 /10 Critical Care Note - Critical Care Note Total Time (mins): 10 Course - Course Orders, Labs, Meds: Orders Category Date Time Status Butorphanol Tartrate [Stadol] MEDS 08/31/16 19:48 Discontinued 2 mg .ROUTE .STK-MED ONE Butorphanol Tartrate [Stadol] MEDS 08/31/16 19:50 Discontinued 2 mg IM ONCE STA Hydromorphone HCl [Dilaudid 1 mg/ml Syringe] MEDS 08/31/16 19:38 Discontinued 1 mg IM ONCE STA Promethazine HCl [Phenergan 25 mg/ml Vial] MEDS 08/31/16 19:38 Discontinued 25 mg IM ONCE STA Promethazine HCl [Phenergan 25 mg/ml Vial] MEDS 08/31/16 19:50 Discontinued 25 mg IM ONCE STA Medications Discontinued Medications Generic Name Dose Route Start Last Admin Trade Name Grisel FARRN Reason Stop Dose Admin Butorphanol Tartrate 2 mg 08/31/16 19:50 08/31/16 20:00 Stadol IM 08/31/16 19:51 2 mg ONCE STA Administration Hydromorphone HCl 1 mg 08/31/16 19:38 08/31/16 20:55 Dilaudid 1 Mg/Ml Syringe IM 08/31/16 19:39 Not Given ONCE STA Promethazine HCl 25 mg 08/31/16 19:38 08/31/16 20:57 Phenergan 25 Mg/Ml Vial IM 08/31/16 19:39 Not Given ONCE STA Promethazine HCl 25 mg 08/31/16 19:50 08/31/16 19:58 Phenergan 25 Mg/Ml Vial IM 08/31/16 19:51 25 mg ONCE STA Administration Vital Signs: Temp Pulse Resp BP Pulse Ox 08/31/16 19:20 97.5 F L 96 H 18 114/78 98 Departure - Departure Time of Disposition: 20:50 Disposition: HOME SELF-CARE Discharge Problem: Headache Migraine headache Qualifiers: Migraine type: without aura Status migrainosus presence: without status migrainosus Intractability: not intractable Qualifier Code: (G43.009) Migraine without aura, not intractable, without status migrainosus Instructions: Migraine Headache (ED) Condition: Fair Pt referred to PMD for follow-up: Yes (3 day ) Additional Instructions: Keep your Apt with PCP and Neurologist Continue home Medications as prescribed. Allergies/Adverse Reactions: Allergies hydrocodone bitartrate [From Vicodin] Allergy (Severe, Verified 08/31/16 19:31) Vomiting acetaminophen [From Darvocet-N] Adverse Reaction (Verified 08/31/16 19:31) Vomiting azithromycin [From Zithromax] Adverse Reaction (Verified 08/31/16 19:31) Difficulty Swallowing clarithromycin [From Biaxin] Adverse Reaction (Verified 08/31/16 19:31) Vomiting ketorolac tromethamine [From Toradol] Adverse Reaction (Verified 08/31/16 19:31) Difficulty Swallowing propoxyphene napsylate [From Darvocet-N] Adverse Reaction (Verified 08/31/16 19: 31) Vomiting sumatriptan [From Imitrex] Adverse Reaction (Verified 08/31/16 19:31) Difficulty Swallowing sumatriptan succinate [From Imitrex] Adverse Reaction (Verified 08/31/16 19:31) Difficulty Swallowing Home Medications: Ambulatory Orders Multivitamin 1 each PO DAILY 04/27/14 Promethazine HCl [Phenergan Tab] 25 mg PO QID PRN #12 tablet 05/04/15 Oxycodone-Acetaminophen 5-325 [Percocet 5-325] 1 tab PO Q4H PRN 06/03/16 Acetazolamide [Diamox] 250 mg PO Q12HR 06/24/16 Disposition Discussed With: Patient
[2016-08-31] MEDS ORDERED: STADOL ONE (19:48)
[2016-08-31] MEDS ORDERED: STADOL IM STA (19:50)
== END 2016-08-31 21:00 | disposition home or self-care (01) ==
LOC: ED 19:17
DX: G43.009 Migraine without aura, not intractable, without status migrainosus (principal)
CPT/HCPCS: 96372; 99284

== ENCOUNTER 2016-09-04 11:51 | Outpatient (CLI) ==
[2016-09-04 13:29] LABS: ALBUMIN 3.7 g/dL (3.4-5.0); ALBUMIN/GLOBULIN RATIO 1.19; ANION GAP 11.2; BILIRUBIN,TOTAL 0.21 mg/dL (0.00-1.20); BUN/CREATININE RATIO 6.97; CALCIUM 9.6 mg/dL (8.2-10.2); CREATININE 0.86 mg/dL (0.60-1.30); POTASSIUM 4.2 mmol/L (3.5-5.10); TOTAL PROTEIN 6.8 g/dL (6.4-8.2)
== END 2016-09-04 11:52 | disposition home or self-care (01) ==
LOC: LAB 11:51
PROVIDERS: ATTEND Emergency Medicine
DX: E87.6 Hypokalemia (principal)
CPT/HCPCS: 36415; 80053

== ENCOUNTER 2016-09-15 08:44 | Emergency (ER) ==
[2016-09-15 08:52] VITALS: BP 118/77; TEMP 97.6; BMI 34.3
--- NOTE | 2016-09-15 09:04 | ED.PDOC ---
General ED Provider: Dr. VÍCTOR CHAUDHRY-ER Chief Complaint: Extremity Swelling/Pain Stated Complaint: my leg hurts from my thigh to the calf Time Seen by Physician: 09:03 Mode of Arrival: Wheelchair Information Source: Patient, Family Exam Limitations: No limitations [facility] and Triage Documentation Reviewed and Agree: Yes Musculoskeletal Complaint Exam - Lower Extremity Complaint/Exam Location of Pain: Reports: Right, Leg Mechanism of Injury: Reports: No known trauma Onset/Duration: several hours Symptoms Are: Still present Onset of Pain: Reports: Immediate Initial Severity: Mild Current Severity: Mild Location: Reports: Discrete Character: Reports: Dull, Aching, Throbbing Alleviating: Reports: None Able to Bear Weight: No Associated Signs and Symptoms: Denies: Swelling, Redness, Bruising, Fever, Weakness, Numbness, Tingling DVT Risk Factors: Reports: Recent surgery Septic Arthritis Risk Factors: Reports: None Related Surgical History: Reports: None Lower Extremity Findings: Present: Swelling, Tenderness NV Bundle Intact Distal to Injury: Yes Compartment Syndrome Risk Factors: Present: Pain Dominick's Sign Present: No Differential Diagnoses: DVT Review of Systems - Review Of Systems Constitutional: Reports: No symptoms Eyes: Reports: No symptoms Ears, Nose, Mouth, Throat: Reports: No symptoms Respiratory: Reports: No symptoms Cardiac: Reports: No symptoms GI: Reports: No symptoms : Reports: No symptoms Musculoskeletal: Reports: Muscle pain Skin: Reports: No symptoms Neurological: Reports: No symptoms Endocrine: Reports: No symptoms Hematologic/Lymphatic: Reports: No symptoms All Other Systems: Reviewed and Negative Past Medical History - Past Medical History Previously Healthy: Yes Endocrine: Reports: None Cardiovascular: Reports: Hypertension Respiratory: Reports: None Hematological: Reports: None Gastrointestinal: Reports: GERD Genitourinary: Reports: None Neuro/Psych: Reports: Migraine Musculoskeletal: Reports: None Cancer: Reports: None Last Menstrual Period: hysterectomy Other Pertinent Past Medical History: HYPOGLYCEMIA - Surgical History General Surgical History: Reports: Hysterectomy ([id number]) - Family History Family History: Reports: Unknown - Social History Smoking Status: Former smoker Hx Substance Use: No Alcohol Screening: None Physical Exam - Physical Exam Appearance: Well-appearing, No pain distress, Well-nourished Pain Distress: Mild Eyes: RUDOLPH, EOMI, Conjunctiva clear ENT: Ears normal, Nose normal, Oropharynx normal Neck: Supple Respiratory: Airway patent, Breath sounds clear, Breath sounds equal, Respirations nonlabored Cardiovascular: RRR, Pulses normal, No rub, No murmur GI/: Soft, Nontender, No masses, Bowel sounds normal, No Organomegaly Musculoskeletal: Limited ROM Skin: Warm Neurological: Sensation intact Psychiatric: Affect appropriate, Mood appropriate Physician Notification - Case Discussed Physician Notified: dr mac graciously accepted Time of Notification: 09:05 Critical Care Note - Critical Care Note Total Time (mins): 0 Course - Course Vital Signs: Temp Pulse Resp BP Pulse Ox 09/15/16 08:44 97.6 F 120 H 16 118/77 98 Departure - Departure Time of Disposition: 09:06 Disposition: HOME SELF-CARE Discharge Problem: Right leg pain Instructions: Leg Cramps (ED) Condition: Good Pt referred to PMD for follow-up: Yes Allergies/Adverse Reactions: Allergies hydrocodone bitartrate [From Vicodin] Allergy (Severe, Verified 09/15/16 08:54) Vomiting acetaminophen [From Darvocet-N] Adverse Reaction (Verified 09/15/16 08:54) Vomiting azithromycin [From Zithromax] Adverse Reaction (Verified 09/15/16 08:54) Difficulty Swallowing clarithromycin [From Biaxin] Adverse Reaction (Verified 09/15/16 08:54) Vomiting ketorolac tromethamine [From Toradol] Adverse Reaction (Verified 09/15/16 08:54) Difficulty Swallowing propoxyphene napsylate [From Darvocet-N] Adverse Reaction (Verified 09/15/16 08: 54) Vomiting sumatriptan [From Imitrex] Adverse Reaction (Verified 09/15/16 08:54) Difficulty Swallowing sumatriptan succinate [From Imitrex] Adverse Reaction (Verified 09/15/16 08:54) Difficulty Swallowing Home Medications: Ambulatory Orders Multivitamin 1 each PO DAILY 04/27/14 Promethazine HCl [Phenergan Tab] 25 mg PO QID PRN #12 tablet 05/04/15 Oxycodone-Acetaminophen 5-325 [Percocet 5-325] 1 tab PO Q4H PRN 06/03/16 Acetazolamide [Diamox] 250 mg PO Q12HR 06/24/16 Transfer Form Completed: Yes Disposition Discussed With: Patient, Family
== END 2016-09-15 09:40 | disposition short-term general hospital (02) ==
LOC: ED 08:44
DX: M79.604 Pain in right leg (principal); R25.2 Cramp and spasm; M79.89 Other specified soft tissue disorders
CPT/HCPCS: 99285

== ENCOUNTER 2016-09-25 08:37 | Outpatient (CLI) ==
[2016-09-25 08:55] LABS: BASOPHILS % (AUTO) 0.6 % (0.0-3.0); EOSINOPHILS # (AUTO) 0.4 K/ul (0.0-0.7); EOSINOPHILS % (AUTO) 7.6 % (0.0-7.0); HEMATOCRIT 32.3 % (37.0-47.0); LYMPHOCYTES # (AUTO) 1.7 K/uL (0.60-3.4); LYMPHOCYTES % (AUTO) 34.9 (10.0-50.0); MEAN CORPUSCULAR HEMOGLOBIN 31.3 pg (27.0-31.0); MEAN CORPUSCULAR HGB CONC 34.1 (31.8-35.4); MONOCYTES # (AUTO) 0.4 K/uL (0.4-2.0); NEUTROPHILS # (AUTO) 2.4 K/ul (2.0-6.9); NEUTROPHILS % (AUTO) 48.9; PLATELET COUNT 424 10^3/uL (140-440); RED BLOOD COUNT 3.51 10^6/ul (4.20-5.40); WHITE BLOOD COUNT 4.98 K/ul (4.6-10.2)
[2016-09-25 09:13] LABS: ALBUMIN 3.2 g/dL (3.4-5.0); ALBUMIN/GLOBULIN RATIO 0.76; BILIRUBIN,TOTAL 0.24 mg/dL (0.00-1.20); BUN/CREATININE RATIO 15.74; CALCIUM 9.9 mg/dL (8.2-10.2); CREATININE 1.08 mg/dL (0.60-1.30); TOTAL PROTEIN 7.4 g/dL (6.4-8.2)
[2016-09-25 09:16] LABS: ANION GAP 12.8; POTASSIUM 2.8 mmol/L (3.5-5.10)
[2016-09-25 19:40] VITALS: BMI 33.5
== END 2016-09-25 08:38 | disposition home or self-care (01) ==
LOC: LAB 08:37
PROVIDERS: ATTEND Emergency Medicine
DX: E66.9 Obesity, unspecified (principal); I10 Essential (primary) hypertension
CPT/HCPCS: 36415; 80053; 85025

== ENCOUNTER 2016-09-25 17:42 | Observation (INO) ==
[2016-09-25] MEDS ORDERED: ATROPINE SULFATE PFS IVP PRN (18:27)
[2016-09-25] MEDS ORDERED: VISTARIL INJ IM PRN (18:27)
[2016-09-25] MEDS ORDERED: TYLENOL PO PRN (18:27)
[2016-09-25] MEDS ORDERED: MORPHINE 2 MG/ML SYRINGE IVP PRN (18:27)
[2016-09-25] MEDS ORDERED: K-DUR PO STA (18:27)
[2016-09-25] MEDS ORDERED: NITROSTAT SL PRN (18:27)
[2016-09-25] MEDS ORDERED: ZESTRIL PO SCH (18:30)
[2016-09-25] MEDS ORDERED: COLACE PO PRN (18:40)
[2016-09-25] MEDS ORDERED: PERCOCET 5-325 PO PRN (18:40)
[2016-09-25] MEDS ORDERED: PHENERGAN TAB PO PRN (18:40)
[2016-09-25 18:49] LABS: BASOPHILS % (AUTO) 0.7 % (0.0-3.0); EOSINOPHILS # (AUTO) 0.4 K/ul (0.0-0.7); EOSINOPHILS % (AUTO) 6.9 % (0.0-7.0); HEMOGLOBIN 10.7 g/dl (12.0-16.0); IMMATURE GRANULOCYTE % (AUTO) 0.2 % (0.0-5.0); LYMPHOCYTES # (AUTO) 2.4 K/uL (0.60-3.4); LYMPHOCYTES % (AUTO) 39.7 (10.0-50.0); MEAN CORPUSCULAR HEMOGLOBIN 31.8 pg (27.0-31.0); MEAN CORPUSCULAR HGB CONC 34.5 (31.8-35.4); MEAN CORPUSCULAR VOLUME 92.3 fl (81.0-99.0); MONOCYTES # (AUTO) 0.4 K/uL (0.4-2.0); MONOCYTES % (AUTO) 7.4 (0-10); NEUTROPHILS # (AUTO) 2.7 K/ul (2.0-6.9); NEUTROPHILS % (AUTO) 45.1; PLATELET COUNT 403 10^3/uL (140-440); RED BLOOD COUNT 3.36 10^6/ul (4.20-5.40); WHITE BLOOD COUNT 5.97 K/ul (4.6-10.2)
[2016-09-25] MEDS ORDERED: POTASSIUM CHLORIDE 10 MEQ VIAL-ADDITIVE ONLY 40 MEQ in SODIUM CHLORIDE 1,000 ML IV SCH (19:00)
[2016-09-25 19:13] LABS: ALBUMIN 3.4 g/dL (3.4-5.0); ALBUMIN/GLOBULIN RATIO 0.81; ANION GAP 14.9; BILIRUBIN,TOTAL 0.21 mg/dL (0.00-1.20); BUN/CREATININE RATIO 14.89; CALCIUM 9.9 mg/dL (8.2-10.2); CREATININE 0.94 mg/dL (0.60-1.30); POTASSIUM 2.9 mmol/L (3.5-5.10); TOTAL PROTEIN 7.6 g/dL (6.4-8.2)
[2016-09-25 19:20] LABS: CREATINE KINASE 48 U/L; MYOGLOBIN 22 ng/ml
[2016-09-25 19:40] VITALS: BMI 33.5
[2016-09-25] MEDS: DIAMOX PO SCH (20:47)
[2016-09-25] MEDS: FLEXERIL PO SCH (20:48)
[2016-09-25] MEDS ORDERED: NON-FORMULARY MEDICATION (Rivaroxaban [Xarelto] 15 MG) PO SCH ×22 (21:00)
[2016-09-25] MEDS ORDERED: ZANTAC PO SCH (21:00)
[2016-09-26 02:20] LABS: BASOPHILS % (AUTO) 0.6 % (0.0-3.0); EOSINOPHILS # (AUTO) 0.4 K/ul (0.0-0.7); EOSINOPHILS % (AUTO) 7.9 % (0.0-7.0); HEMATOCRIT 28.3 % (37.0-47.0); HEMOGLOBIN 9.8 g/dl (12.0-16.0); IMMATURE GRANULOCYTE % (AUTO) 0.2 % (0.0-5.0); LYMPHOCYTES # (AUTO) 2.4 K/uL (0.60-3.4); LYMPHOCYTES % (AUTO) 45.7 (10.0-50.0); MEAN CORPUSCULAR HEMOGLOBIN 31.8 pg (27.0-31.0); MEAN CORPUSCULAR HGB CONC 34.6 (31.8-35.4); MEAN CORPUSCULAR VOLUME 91.9 fl (81.0-99.0); MONOCYTES # (AUTO) 0.4 K/uL (0.4-2.0); MONOCYTES % (AUTO) 7.4 (0-10); NEUTROPHILS % (AUTO) 38.2; PLATELET COUNT 354 10^3/uL (140-440); RED BLOOD COUNT 3.08 10^6/ul (4.20-5.40); WHITE BLOOD COUNT 5.29 K/ul (4.6-10.2)
[2016-09-26 02:40] LABS: ALBUMIN 2.9 g/dL (3.4-5.0); ALBUMIN/GLOBULIN RATIO 0.83; ANION GAP 14.3; BILIRUBIN,TOTAL 0.18 mg/dL (0.00-1.20); BUN/CREATININE RATIO 15.85; CALCIUM 9.1 mg/dL (8.2-10.2); CREATININE 0.82 mg/dL (0.60-1.30); MAGNESIUM 2.2 mg/dL (1.7-2.2); POTASSIUM 3.3 mmol/L (3.5-5.10); TOTAL PROTEIN 6.4 g/dL (6.4-8.2)
[2016-09-26 02:47] LABS: CREATINE KINASE 36 U/L; MYOGLOBIN 20 ng/ml
--- NOTE | 2016-09-26 07:09 | DI ---
EXAM: Chest one view, frontal view only. HISTORY: Pulmonary embolus. COMPARISON: 06/15/2014. FINDINGS: The heart size is normal. There is no pulmonary vascular congestion. The lungs are deanna r. No pleural effusion or pneumothorax is seen. No acute osseous abnormality is identified. Tubin g courses over the left chest, possibly a shunt catheter. Francisca project over the left clavicle. IMPRESSION: No acute cardiopulmonary process.
[2016-09-26] MEDS ORDERED: SODIUM CHLORIDE 0.9%-KCL 40MEQ 1,000 ML IV SCH (07:30)
[2016-09-26] MEDS ORDERED: ZANTAC PO SCH (07:30)
[2016-09-26] MEDS ORDERED: ASPIRIN EC PO SCH (08:00)
[2016-09-26] MEDS ORDERED: K-DUR PO STA (08:25)
[2016-09-26] MEDS: DIAMOX PO SCH (08:26)
[2016-09-26] MEDS: FLEXERIL PO SCH ×2 (08:30→14:46)
[2016-09-26] MEDS ORDERED: MICRO-K CAP PO STA (08:46)
[2016-09-26] MEDS ORDERED: FLOMAX PO SCH (09:00)
[2016-09-26] MEDS ORDERED: K-DUR PO ONE (09:00)
[2016-09-26] MEDS ORDERED: XARELTO PO SCH (09:00)
[2016-09-26 12:21] LABS: MAGNESIUM 2.1 mg/dL (1.7-2.2); POTASSIUM 3.7 mmol/L (3.5-5.10)
--- NOTE | 2016-09-26 13:37 | PN ---
DATE OF SERVICE: 09/26/16 SUBJECTIVE: The patient was admitted with hypokalemia, potassium is 3.3 now. The patient recently had the ventriculoperitoneal shunt done by Dr. Rees. The patient was admitted with severe hypokalemia and muscle weakness. Doing better today. REVIEW OF SYSTEMS: CONSTITUTIONAL: No fever, no chills. HEENT: Normal. ENDOCRINE: No weight gain, no weight loss. CVS: No angina symptoms. No CHF symptoms. No palpitations. No atypical chest pain for CAD. No shortness of breath. No PND, no orthopnea. RESPIRATORY: No cough, no hemoptysis. GI: No nausea, no vomiting. No abdominal pain. : No hematuria. No polyuria. MUSCULOSKELETAL:. No joint swelling. PSYCHIATRIC: Not anxious. No depression. No suicidal thoughts. No homicidal thoughts. SKIN: Intact. No rash. PHYSICAL EXAMINATION: V/S: Blood pressure low 77/51, respiratory 16, heart rate 98 and temperature 97.9. HEENT: Normocephalic, atraumatic. Mucosa dry. Suture sights and wound is looking good with patient have a TRAFFIC II MANAGER shunt. NECK: Supple. No JVD, no carotid bruit. No lymphadenopathy. LUNGS: Decreased and clear to auscultation. No rales or rhonchi. HEART: S1, S2 normal. No S3. No murmur, gallop or regurgitation. ABDOMEN: Soft, nontender. Bowel sounds active. No rigidity. No rebound or guarding. No CVA tenderness. EXTREMITIES: No clubbing, cyanosis or pedal edema. MUSCULOSKELETAL: No joint swelling. NEUROLOGIC: Awake, alert, oriented times three. No focal deficit. LYMPHATIC: No lymph nodes palpable. SKIN: Intact. LABS: WBC 5.29, hgb 9.8, hct 28.3, plt count 354, sodium 139, potassium 3.3, chloride 109, bicarb 19, BUN 13 and creatinine 0.8, glucose 117 ASSESSMENT: 1. Severe hypokalemia 2. Hypotension secondary to the medications. 3. Status post ventriculoperitoneal shunt 4. History of several tumors of the brain 5. Dyslipidemia 6. Hypertension PLAN: 1. Replace potassium 2. Recheck potassium by noon along with magnesium 3. Stop the blood pressure medication 4. Continue IV fluids. TIME SPENT: More than 30 minutes MTDD
[2016-09-26] MEDS ORDERED: SODIUM CHLORIDE 500 ML IV STA (13:56)
[2016-09-26 15:49] VITALS: BP 89/59; TEMP 98
[2016-09-26] MEDS ORDERED: MICRO-K CAP PO SCH (21:00)
[2016-09-26] MEDS ORDERED: K-DUR PO SCH (21:00)
--- NOTE | 2016-10-02 13:54 | DS ---
DATE OF SERVICE: 09/26/16 FINAL DIAGNOSIS: 1. Severe Hypokalemia 2. 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 Hypertension 4. Dyslipidemia 5. GERD 6. History of hysterectomy 7. Appendectomy 8. Cholecystectomy 9. Hypotension secondary to the medications. 10.History of DVT 11.Pulmonary embolism DISCHARGE INSTRUCTIONS: Discharge the patient home. Stop the Zestoretic and any blood pressure medication at given time. Followup in the [facility] within 5-7 days. Continue the rest of the home medications. MEDICATIONS AT DISCHARGE: Diamox Flexeril Colace Oxycodone Potassium Phenergan Zantac Xarelto Flomax NEW PRESCRIPTIONS: None DIET INSTRUCTIONS: Healthy heart ACTIVITY: Get plenty of rest at home. Gradually increase activity level according to toleration. SMOKING: Former smoker. DISEASE SPECIFIC EDUCATION: termite helper anticoagulation and GI bleed Hypokalemia Arrhythmias been discussed. HOSPITAL COURSE: Juan Manuel Staplestomasaziyad who is a 40 year old female who recently had a ventriculoperitoneal shunt placed by Dr. Rees for the Pseudo Tumor Cerebri and symptomatic problems. Post surgery the patient complicated with having DVT and PE and she is on the Xarelto for that. The patient's labs showed Potassium 2.8 and at that time the patient is admitted to the hospital and started on the IV Potassium, rechecked in the morning and it was 3.3, continued with the 40 PO and rechecked the potassium and potassium came back to 3.7 and magnesium was 2.1. The patient was hypotensive during the hospital stay but did not have any dizziness or any lightheadedness. We did give a Bolus of fluid 250ml which did bring the blood pressure to the 100 and 204. At that time the patient is being discharged home. TIME SPENT: More than 55 minutes today. NATASHA
== END 2016-09-26 16:45 | disposition home or self-care (01) ==
LOC: MEDSURG A 17:42
PROVIDERS: ADMIT Emergency Medicine; ATTEND Emergency Medicine
DX: E87.6 Hypokalemia (principal); G93.2 Benign intracranial hypertension; I10 Essential (primary) hypertension; I82.409 Acute embolism and thrombosis of unspecified deep veins of unspecified lower extremity; I26.99 Other pulmonary embolism without acute cor pulmonale; I95.2 Hypotension due to drugs; E78.5 Hyperlipidemia, unspecified; K21.9 Gastro-esophageal reflux disease without esophagitis; E66.9 Obesity, unspecified; Z98.2 Presence of cerebrospinal fluid drainage device; Z79.01 Long term (current) use of anticoagulants
CPT/HCPCS: 36415; 80053; 82550; 83735; 83874; 84132; 84484; 85025; 93005; 93010

== ENCOUNTER 2016-10-01 11:28 | Outpatient (CLI) | END 2016-10-01 11:29 | disposition home or self-care (01) | LOC: LAB 11:28 | PROVIDERS: ATTEND Emergency Medicine | DX: E87.6 Hypokalemia (principal); I10 Essential (primary) hypertension | CPT/HCPCS: 36415; 84132 ==

== ENCOUNTER 2016-10-10 12:30 | Outpatient (CLI) | END 2016-10-10 12:31 | disposition home or self-care (01) | LOC: LAB 12:30 | PROVIDERS: ATTEND Emergency Medicine | DX: I10 Essential (primary) hypertension (principal) | CPT/HCPCS: 36415; 84132 ==

== ENCOUNTER 2016-10-17 18:57 | Emergency (ER) ==
[2016-10-17 18:57] VITALS: BMI 33.5
[2016-10-17 19:01] VITALS: BP 120/82; TEMP 97.8
[2016-10-17] MEDS ORDERED: DILAUDID 2 MG/ML SYRINGE IM STA (19:09)
[2016-10-17] MEDS ORDERED: PHENERGAN 25 MG/ML VIAL IM STA (19:09)
--- NOTE | 2016-10-17 19:39 | CT ---
EXAM: CT brain without contrast HISTORY: Headache TECHNIQUE: Multi-slice transaxial helical with coronal and sagital reformated images COMPARISON: CT brain from 06/26/2016 FINDINGS: The midline structures are central. The ventricles are neither dilated nor displaced. A left transfrontal ventricle peritoneal shunt tube ends near the left foramen of normal. The brai n attenuation of lanier matter interface is maintained. No acute intraparenchymal or extraaxial hemor rhagic collections are detected. The calvarium is intact. An air-fluid levels noted in the left maxillary sinus. The other visible portions of the paranasal sinuses and mastoid air cells are clear. IMPRESSION: 1. No acute intracranial process. 2. Shunted ventricles without hydrocephalous. 3. Acute left maxillary sinusitis.
--- NOTE | 2016-10-17 19:47 | ED.PDOC ---
General ED Provider: Dr. VÍCTOR CHAUDHRY-ER Chief Complaint: Headache Stated Complaint: ponce got a migraine=--its just like my usual migrains Time Seen by Physician: 18:55 Mode of Arrival: Walk-In Information Source: Patient Exam Limitations: No limitations [facility] Documentation Reviewed and Agree: Yes Neurological Complaint Exam - Headache Complaint/Exam Onset: Gradual Duration: 24hrs Symptoms Are: Still present Timing: Constant Episodes Lasting: Hours Worst Headache Ever: No Initial Severity: Mild Current Severity: Moderate Location: Diffuse Character: Reports: Dull, Throbbing, Pressure, Typical headache, Migraine Aggravating: Reports: Bright lights Alleviating: Reports: None Associated Signs and Symptoms: Reports: Nausea, Vomiting. Denies: Dizziness, Seizure, Sinus pressure, Fever, Neck pain, Neck stiffness, Decreased LOC, Visual changes Related History: Reports: Similar episode Related Surgical History: Reports: Craniotomy SAH Risk Factors: Reports: -emirati Meningitis Risk Factors: Reports: None Temporal Arteritis Risk Factors: Reports: Female Normal Head CT Within Last 12 Months: Yes Fundoscopic Exam: Present: Normal Findings Papilledema Present: No Temporal Artery Tenderness: Present: None Sinus Tenderness: Present: None TMJ Tenderness: Present: None Glascow Coma Scale (see protocol): 15 Meningeal Signs Positive: No Pain on Passive Flexion-Positive Kernig's: No ROM Limited In: No Limitiations Focal Weakness: Present: None Focal Sensory Loss: Present: None Nystagmus Present: No Gag Reflex Present: Yes [id number]: Normal Findings Romberg Test Positive: No Babinski Sign: Negative Right, Negative Left Heel to Toe Normal: Yes Differential Diagnoses: Migraine Review of Systems - Review Of Systems Constitutional: Reports: No symptoms Eyes: Reports: No symptoms Ears, Nose, Mouth, Throat: Reports: No symptoms Respiratory: Reports: No symptoms Cardiac: Reports: No symptoms GI: Reports: Nausea, Vomiting : Reports: No symptoms Musculoskeletal: Reports: No symptoms Skin: Reports: No symptoms Neurological: Reports: Headache Endocrine: Reports: No symptoms Hematologic/Lymphatic: Reports: No symptoms All Other Systems: Reviewed and Negative Past Medical History - Past Medical History Previously Healthy: Yes Endocrine: Reports: None Cardiovascular: Reports: Hypertension Respiratory: Reports: None Hematological: Reports: None Gastrointestinal: Reports: GERD Genitourinary: Reports: None Neuro/Psych: Reports: Migraine Musculoskeletal: Reports: None Cancer: Reports: None Last Menstrual Period: HYSTERECTOMY Other Pertinent Past Medical History: HYPOGLYCEMIA - Surgical History General Surgical History: Reports: Hysterectomy ([id number]) - Family History Family History: Reports: Unknown - Social History Smoking Status: Former smoker Hx Substance Use: No Alcohol Screening: None Lives: With family Physical Exam - Physical Exam Appearance: Well-appearing, No pain distress, Well-nourished Pain Distress: Moderate Eyes: RUDOLPH, EOMI, Conjunctiva clear ENT: Ears normal, Nose normal, Oropharynx normal Neck: Supple Respiratory: Airway patent, Breath sounds clear, Breath sounds equal, Respirations nonlabored Cardiovascular: RRR, Pulses normal, No rub, No murmur GI/: Soft, Nontender, No masses, Bowel sounds normal, No Organomegaly Musculoskeletal: Normal strength, ROM intact, No edema, No calf tenderness Skin: Warm, Dry, Normal color Neurological: Sensation intact, Motor intact, Reflexes intact, Cranial nerves intact, Alert, Oriented Psychiatric: Affect appropriate, Mood appropriate Interpretation - Radiology Interpretation Radiology Interpretation By: Radiologist Radiology Results: Negative Exam Interpreted: CT Scan Re-Evaluation - Re-Evaluation Time of Re-Evaluation: 19:48 Status: Improved Vital Signs Stable: Yes Pain Level: 1 Appearance: NAD Lungs: Clear Skin: Warm and Dry Neuro: Alert and Oriented X3 CV: RRR Critical Care Note - Critical Care Note Total Time (mins): 0 Course - Course Orders, Labs, Meds: Orders Category Date Time Status Hydromorphone HCl/Pf [Dilaudid 2 mg/ml Syringe] MEDS 10/17/16 19:09 Discontinued 2 mg IM ONCE STA Promethazine HCl [Phenergan 25 mg/ml Vial] MEDS 10/17/16 19:09 Discontinued 25 mg IM ONCE STA CT HEAD W/O CONTRAST Stat RADS 10/17/16 19:09 Completed Medications Discontinued Medications Generic Name Dose Route Start Last Admin Trade Name Grisel PRN Reason Stop Dose Admin Hydromorphone HCl 2 mg 10/17/16 19:09 10/17/16 19:18 Dilaudid 2 Mg/Ml Syringe IM 10/17/16 19:10 2 mg ONCE STA Administration Promethazine HCl 25 mg 10/17/16 19:09 10/17/16 19:19 Phenergan 25 Mg/Ml Vial IM 10/17/16 19:10 25 mg ONCE STA Administration Vital Signs: Temp Pulse Resp BP Pulse Ox 10/17/16 18:57 97.8 F 120 H 20 120/82 99 Departure - Departure Time of Disposition: 19:49 Disposition: HOME SELF-CARE Discharge Problem: Migraine headache Qualifiers: Migraine type: without aura Status migrainosus presence: without status migrainosus Intractability: not intractable Qualifier Code: (G43.009) Migraine without aura, not intractable, without status migrainosus Instructions: Migraine Headache (ED) Condition: Good Pt referred to PMD for follow-up: Yes Additional Instructions: f/u with your neurologist Allergies/Adverse Reactions: Allergies hydrocodone bitartrate [From Vicodin] Allergy (Severe, Verified 10/17/16 19:02) Vomiting acetaminophen [From Darvocet-N] Adverse Reaction (Verified 10/17/16 19:02) Vomiting azithromycin [From Zithromax] Adverse Reaction (Verified 10/17/16 19:02) Difficulty Swallowing clarithromycin [From Biaxin] Adverse Reaction (Verified 10/17/16 19:02) Vomiting ketorolac tromethamine [From Toradol] Adverse Reaction (Verified 10/17/16 19:02) Difficulty Swallowing propoxyphene napsylate [From Darvocet-N] Adverse Reaction (Verified 10/17/16 19: 02) Vomiting sumatriptan [From Imitrex] Adverse Reaction (Verified 10/17/16 19:02) Difficulty Swallowing sumatriptan succinate [From Imitrex] Adverse Reaction (Verified 10/17/16 19:02) Difficulty Swallowing Home Medications: Ambulatory Orders Promethazine HCl [Phenergan Tab] 25 mg PO QID PRN #12 tablet 05/04/15 Oxycodone-Acetaminophen 5-325 [Percocet 5-325] 1 tab PO Q6H PRN 06/03/16 Acetazolamide [Diamox] 500 mg PO Q12HR 06/24/16 Cyclobenzaprine HCl [Flexeril] 10 mg PO TID 09/25/16 Docusate Sodium [Colace] 100 mg PO BID PRN 09/25/16 Rivaroxaban [Xarelto] 15 mg PO BID 09/25/16 Tamsulosin HCl [Flomax] 0.4 mg PO DAILY 09/25/16 Disposition Discussed With: Patient
== END 2016-10-17 19:56 | disposition home or self-care (01) ==
LOC: ED 18:57
DX: G43.009 Migraine without aura, not intractable, without status migrainosus (principal)
CPT/HCPCS: 96372; 99284

== ENCOUNTER 2016-11-02 19:48 | Emergency (ER) ==
[2016-11-02 19:58] VITALS: BP 126/87; TEMP 97.6; BMI 33.1
--- NOTE | 2016-11-02 20:07 | ED.PDOC ---
General ED Provider: Dr. SAVANNA BOWMAN Chief Complaint: Head Injury Stated Complaint: Pateint state that while he was cleaning out car, he accidentally hit the top, left side of head on door frame. He states that he has a shunt in that area of head. He reports that he started having a migraine headache and was unable to get rid of it with home meds like he normally does. Admits to some Nausea, vomiting and photophobia. Time Seen by Physician: 20:05 Mode of Arrival: Walk-In Information Source: Patient Exam Limitations: No limitations [facility] T[facility] Documentation Reviewed and Agree: Yes Trauma/Injury Complaint Exam - Head Injury Complaint/Exam Location of Pain: Reports: Left, Scalp Mechanism of Injury: Reports: Trauma Onset/Duration: 1 day Symptoms Are: Still present Initial Severity: Moderate Current Severity: Severe Character: Reports: Pressure Associated Signs and Symptoms: Denies: Confusion, Memory loss, Seizure, Epistaxis, Dental malocclusion, Neck pain, Nausea, Vomiting Loss of Consciousness: None Related History: Reports: Similar episode SDH Risk Factors: Present: None Cervical Spine Injury Risk Factors: Present: None Related Surgical History: Reports: None Glascow Coma Scale (see protocol): 15 Focal Weakness: Present: None Focal Sensory Loss: Present: None Gait: Normal Gag Reflex Present: No Finger to Nose: Normal Rhomberg Test Positive: No Babinski Sign: Negative Right, Negative Left Heel to Toe Normal: Yes Nexus Low Risk Criteria: No Altered LOC Head Picture: 1 - mild swelling Review of Systems - Review Of Systems Constitutional: Reports: No symptoms Eyes: Reports: No symptoms Ears, Nose, Mouth, Throat: Reports: No symptoms Respiratory: Reports: No symptoms Cardiac: Reports: No symptoms GI: Reports: No symptoms : Reports: No symptoms Musculoskeletal: Reports: No symptoms Skin: Reports: Bruising Neurological: Reports: Anxiety, Headache Endocrine: Reports: No symptoms Hematologic/Lymphatic: Reports: No symptoms All Other Systems: Reviewed and Negative Past Medical History - Past Medical History Previously Healthy: Yes Endocrine: Reports: None Cardiovascular: Reports: Hypertension Respiratory: Reports: None Hematological: Reports: None Gastrointestinal: Reports: GERD Genitourinary: Reports: None Neuro/Psych: Reports: Migraine Musculoskeletal: Reports: None Cancer: Reports: None Last Menstrual Period: 2002 Other Pertinent Past Medical History: HYPOGLYCEMIA - Surgical History General Surgical History: Reports: Hysterectomy ([id number]) - Family History Family History: Reports: Unknown - Social History Smoking Status: Former smoker Hx Substance Use: No Alcohol Screening: None - Immunizations Tetanus Shot up to Date: Yes Physical Exam - Physical Exam Appearance: Ill-appearing, Obese Ill-appearing: Mild Pain Distress: Severe Eyes: RUDOLPH, EOMI, Conjunctiva clear ENT: Ears normal, Nose normal, Oropharynx normal Neck: Supple Respiratory: Airway patent, Breath sounds clear, Breath sounds equal, Respirations nonlabored Cardiovascular: RRR Musculoskeletal: Normal strength, ROM intact, No edema, No calf tenderness Skin: Warm Neurological: Sensation intact Psychiatric: Anxious Interpretation - Radiology Interpretation Radiology Interpretation By: Radiologist Radiology Results: No acute changes Exam Interpreted: CT Scan (head no hydrocephalus ) Re-Evaluation - Re-Evaluation Time of Re-Evaluation: 21:40 Status: Improved Pain Level: much better Critical Care Note - Critical Care Note Total Time (mins): 0 Course - Course Orders, Labs, Meds: Orders Category Date Time Status Hydromorphone HCl [Dilaudid 1 mg/ml Syringe] MEDS 11/02/16 20:46 Discontinued 1 mg IM ONCE STA Promethazine HCl [Phenergan 25 mg/ml Vial] MEDS 11/02/16 20:46 Discontinued 25 mg IM ONCE STA CT HEAD W/O CONTRAST Stat RADS 11/02/16 20:08 Completed Medications Discontinued Medications Generic Name Dose Route Start Last Admin Trade Name Freq PRN Reason Stop Dose Admin Hydromorphone HCl 1 mg 11/02/16 20:46 11/02/16 21:03 Dilaudid 1 Mg/Ml Syringe IM 11/02/16 20:47 1 mg ONCE STA Administration Promethazine HCl 25 mg 11/02/16 20:46 11/02/16 21:02 Phenergan 25 Mg/Ml Vial IM 11/02/16 20:47 25 mg ONCE STA Administration Vital Signs: Temp Pulse Resp BP Pulse Ox 11/02/16 19:49 97.6 F 99 H 20 126/87 98 Departure - Departure Time of Disposition: 21:34 Disposition: HOME SELF-CARE Discharge Problem: Migraine headache Qualifiers: Migraine type: without aura Status migrainosus presence: without status migrainosus Intractability: not intractable Qualifier Code: (G43.009) Migraine without aura, not intractable, without status migrainosus Contusion Qualifiers: Encounter type: initial encounter Contusion area: head Contusion of head detail : scalp Qualifier Code: (S00.03XA) Contusion of scalp, initial encounter Instructions: Migraine Headache (ED), Contusion in Adults (ED) Condition: Good Pt referred to PMD for follow-up: Yes Additional Instructions: Push fluids Follow up with Pcp in 3 days Rest continue home meds Allergies/Adverse Reactions: Allergies hydrocodone bitartrate [From Vicodin] Allergy (Severe, Verified 10/17/16 19:02) Vomiting acetaminophen [From Darvocet-N] Adverse Reaction (Verified 10/17/16 19:02) Vomiting azithromycin [From Zithromax] Adverse Reaction (Verified 10/17/16 19:02) Difficulty Swallowing clarithromycin [From Biaxin] Adverse Reaction (Verified 10/17/16 19:02) Vomiting ketorolac tromethamine [From Toradol] Adverse Reaction (Verified 10/17/16 19:02) Difficulty Swallowing propoxyphene napsylate [From Darvocet-N] Adverse Reaction (Verified 10/17/16 19: 02) Vomiting sumatriptan [From Imitrex] Adverse Reaction (Verified 10/17/16 19:02) Difficulty Swallowing sumatriptan succinate [From Imitrex] Adverse Reaction (Verified 10/17/16 19:02) Difficulty Swallowing Home Medications: Ambulatory Orders Promethazine HCl [Phenergan Tab] 25 mg PO QID PRN #12 tablet 05/04/15 Oxycodone-Acetaminophen 5-325 [Percocet 5-325] 1 tab PO Q6H PRN 06/03/16 Acetazolamide [Diamox] 500 mg PO Q12HR 06/24/16 Cyclobenzaprine HCl [Flexeril] 10 mg PO TID 09/25/16 Docusate Sodium [Colace] 100 mg PO BID PRN 09/25/16 Rivaroxaban [Xarelto] 15 mg PO BID 09/25/16 Tamsulosin HCl [Flomax] 0.4 mg PO DAILY 09/25/16 Disposition Discussed With: Patient, Family
--- NOTE | 2016-11-02 20:36 | CT ---
EXAM: CT scan brain without contrast HISTORY: Headache COMPARISON: CT scan brain 10/17/2016 FINDINGS: Contiguous axial images obtained from the skull base to the convexities without contrast utilizing 5-mm collimation. Sagittal and coronal reconstructions were imaged and reviewed.. The ve ntricles and CSF spaces are within normal limits.. There is a stable left-sided transfrontal ventric ulostomy catheter . The intracranial hemorrhage. The visualized paranasal sinuses and mastoid air c ells are clear. IMPRESSION: No acute intracranial findings. Shunted ventricles without hydrocephalous
[2016-11-02] MEDS ORDERED: DILAUDID 1 MG/ML SYRINGE IM STA (20:46)
[2016-11-02] MEDS ORDERED: PHENERGAN 25 MG/ML VIAL IM STA (20:46)
== END 2016-11-02 21:47 | disposition home or self-care (01) ==
LOC: ED 19:48
DX: G43.009 Migraine without aura, not intractable, without status migrainosus (principal); S00.03XA Contusion of scalp, initial encounter; W22.8XXA Striking against or struck by other objects, initial encounter
CPT/HCPCS: 96372; 99283

== ENCOUNTER 2016-11-18 20:10 | Emergency (ER) ==
[2016-11-18 20:13] VITALS: BP 128/87; TEMP 99; BMI 33.5
[2016-11-18] MEDS ORDERED: ZOFRAN 4 MG/2 ML IM STA (21:18)
[2016-11-18] MEDS ORDERED: DILAUDID 1 MG/ML SYRINGE IM STA (21:18)
--- NOTE | 2016-11-18 21:22 | ED.PDOC ---
General ED Provider: Dr. SUZANNE MENDOZA Chief Complaint: Headache Stated Complaint: BEEN HAVING HEADACHE, Time Seen by Physician: 21:22 Mode of Arrival: Walk-In Information Source: Patient Primary Care Provider: [facility] [address] Nursing and Triage Documentation Reviewed and Agree: Yes Neurological Complaint Exam - Headache Complaint/Exam Onset: Gradual Symptoms Are: Still present Timing: Constant Worst Headache Ever: No Initial Severity: Moderate Current Severity: Moderate Location: Right, Left, Frontal Character: Reports: Throbbing, Migraine Aggravating: Reports: Bright lights Alleviating: Reports: None Associated Signs and Symptoms: Denies: Dizziness, Seizure, Nausea, Vomiting, Sinus pressure, Fever, Neck pain, Neck stiffness, Decreased LOC, Visual changes Related History: Reports: Similar episode Related Surgical History: Reports: None SAH Risk Factors: Reports: None Meningitis Risk Factors: Reports: None SDH Risk Factors: Reports: Coagulopathy Temporal Arteritis Risk Factors: Reports: None Normal Head CT Within Last 12 Months: Yes Fundoscopic Exam: Present: Normal Findings Papilledema Present: No Temporal Artery Tenderness: Present: None Sinus Tenderness: Present: None TMJ Tenderness: Present: None Meningeal Signs Positive: No Pain on Passive Flexion-Positive Kernig's: No ROM Limited In: No Limitiations Focal Weakness: Present: None Focal Sensory Loss: Present: None Gait: Normal Nystagmus Present: No Gag Reflex Present: Yes Romberg Test Positive: No Babinski Sign: Negative Right, Negative Left Differential Diagnoses: Migraine Review of Systems - Review Of Systems Constitutional: Reports: No symptoms Eyes: Reports: No symptoms Ears, Nose, Mouth, Throat: Reports: No symptoms Respiratory: Reports: No symptoms Cardiac: Reports: No symptoms GI: Reports: No symptoms : Reports: No symptoms Musculoskeletal: Reports: No symptoms Skin: Reports: No symptoms Neurological: Reports: Headache Endocrine: Reports: No symptoms Hematologic/Lymphatic: Reports: No symptoms All Other Systems: Reviewed and Negative Past Medical History - Past Medical History Previously Healthy: Yes Endocrine: Reports: None Cardiovascular: Reports: Hypertension Respiratory: Reports: None Hematological: Reports: None Gastrointestinal: Reports: GERD Genitourinary: Reports: None Neuro/Psych: Reports: Migraine Musculoskeletal: Reports: None Cancer: Reports: None Last Menstrual Period: none Other Pertinent Past Medical History: HYPOGLYCEMIA - Surgical History General Surgical History: Reports: Hysterectomy ([id number]) - Family History Family History: Reports: Unknown - Social History Smoking Status: Former smoker Hx Substance Use: No Alcohol Screening: None Physical Exam - Physical Exam Appearance: Well-appearing, No pain distress, Well-nourished Eyes: RUDOLPH, EOMI, Conjunctiva clear ENT: Ears normal, Nose normal, Oropharynx normal Respiratory: Airway patent, Breath sounds clear, Breath sounds equal, Respirations nonlabored Cardiovascular: RRR, Pulses normal, No rub, No murmur GI/: Soft, Nontender, No masses, Bowel sounds normal, No Organomegaly Musculoskeletal: Normal strength, ROM intact, No edema, No calf tenderness Skin: Warm, Dry, Normal color Neurological: Sensation intact, Motor intact, Reflexes intact, Cranial nerves intact, Alert, Oriented Psychiatric: Affect appropriate, Mood appropriate Critical Care Note - Critical Care Note Total Time (mins): 30 Course - Course Orders, Labs, Meds: Orders Category Date Time Status Hydromorphone HCl [Dilaudid 1 mg/ml Syringe] MEDS 11/18/16 21:18 Stat 1 mg IM ONCE STA Ondansetron HCl/Pf [Zofran 4 mg/2 ml] MEDS 11/18/16 21:18 Stat 4 mg IM ONCE STA CT HEAD W/O CONTRAST Stat RADS 11/18/16 21:17 Ordered Vital Signs: Temp Pulse Resp BP Pulse Ox 11/18/16 20:11 99.0 F 107 H 20 128/87 98 Departure - Departure Time of Disposition: 21:25 Disposition: HOME SELF-CARE Discharge Problem: Headache Instructions: Migraine Headache (ED) Condition: Good Pt referred to PMD for follow-up: Yes Additional Instructions: Needs f/u with neurologist f/u [facility] Allergies/Adverse Reactions: Allergies hydrocodone bitartrate [From Vicodin] Allergy (Severe, Verified 11/18/16 20:14) Vomiting acetaminophen [From Darvocet-N] Adverse Reaction (Verified 11/18/16 20:14) Vomiting azithromycin [From Zithromax] Adverse Reaction (Verified 11/18/16 20:14) Difficulty Swallowing clarithromycin [From Biaxin] Adverse Reaction (Verified 11/18/16 20:14) Vomiting ketorolac tromethamine [From Toradol] Adverse Reaction (Verified 11/18/16 20:14) Difficulty Swallowing propoxyphene napsylate [From Darvocet-N] Adverse Reaction (Verified 11/18/16 20: 14) Vomiting sumatriptan [From Imitrex] Adverse Reaction (Verified 11/18/16 20:14) Difficulty Swallowing sumatriptan succinate [From Imitrex] Adverse Reaction (Verified 11/18/16 20:14) Difficulty Swallowing Home Medications: Ambulatory Orders Promethazine HCl [Phenergan Tab] 25 mg PO QID PRN #12 tablet 05/04/15 Oxycodone-Acetaminophen 5-325 [Percocet 5-325] 1 tab PO Q6H PRN 06/03/16 Acetazolamide [Diamox] 500 mg PO Q12HR 06/24/16 Cyclobenzaprine HCl [Flexeril] 10 mg PO TID 09/25/16 Docusate Sodium [Colace] 100 mg PO BID PRN 09/25/16 Rivaroxaban [Xarelto] 15 mg PO BID 09/25/16 Tamsulosin HCl [Flomax] 0.4 mg PO DAILY 09/25/16 Disposition Discussed With: Patient
--- NOTE | 2016-11-18 21:51 | CT ---
EXAM: CT brain without contrast HISTORY: Headaches TECHNIQUE: CT of the brain without intravenous contrast FINDINGS: There is no acute hemorrhage midline shift or mass effect. No hydrocephalus or abnormal e xtra-axial fluid collection. Right transfrontal ventriculostomy catheter. The ventricle diameter steven ears similar to 11/02/2016. No significant parenchymal attenuation abnormality. The bony cranium steven ears normal. The visualized paranasal sinuses are clear. Soft tissues without significant abnormality . IMPRESSION: 1. No acute intracranial abnormality. Left trans frontal ventriculostomy catheter. No intracranial abnormality otherwise and no interval change from 11/02/2016.
== END 2016-11-18 22:23 | disposition home or self-care (01) ==
LOC: ED 20:10
DX: R51 Headache (principal)
CPT/HCPCS: 96372; 99283

== ENCOUNTER 2016-12-24 16:40 | Outpatient (CLI) | END 2016-12-24 16:41 | disposition short-term general hospital (02) | LOC: AMBL 16:40 | PROVIDERS: ATTEND Internal Medicine | DX: S06.9X9A Unspecified intracranial injury with loss of consciousness of unspecified duration, initial encounter (principal); R51 Headache; W22.8XXA Striking against or struck by other objects, initial encounter ==

== ENCOUNTER 2017-01-14 13:57 | Emergency (ER) ==
[2017-01-14 14:05] VITALS: BP 133/85; TEMP 98.3; BMI 33.1
--- NOTE | 2017-01-14 15:18 | ED.PDOC ---
General ED Provider: Dr. ROSA DEVINE JR Chief Complaint: Headache Stated Complaint: has migraine headache that started one week ago--headache is sl different from past due to now has shunts to place to head--taking prescribed meds--has photophobia with sl nausea--has had nerve blocking shots without relief--neuro will try botox next visit 98.3 121 16 99 133/85 10/10 Time Seen by Physician: 15:17 Mode of Arrival: Walk-In Information Source: Patient Exam Limitations: No limitations [facility] Documentation Reviewed and Agree: No Review of Systems - Review Of Systems Constitutional: Reports: Malaise Eyes: Reports: No symptoms Ears, Nose, Mouth, Throat: Reports: No symptoms Respiratory: Reports: No symptoms Cardiac: Reports: No symptoms GI: Reports: No symptoms : Reports: No symptoms Musculoskeletal: Reports: No symptoms Skin: Reports: No symptoms Neurological: Reports: Headache Endocrine: Reports: No symptoms Hematologic/Lymphatic: Reports: No symptoms All Other Systems: Other Past Medical History - Past Medical History Previously Healthy: Yes Endocrine: Reports: None Cardiovascular: Reports: Hypertension Respiratory: Reports: None Hematological: Reports: None Gastrointestinal: Reports: GERD Genitourinary: Reports: None Neuro/Psych: Reports: Migraine Musculoskeletal: Reports: None Cancer: Reports: None Last Menstrual Period: hysterectomy Other Pertinent Past Medical History: HYPOGLYCEMIA - Surgical History General Surgical History: Reports: Hysterectomy ([id number]), Other (sinus surgery 06/07/16, Lumbar puncture 06/21/16 shunt to brain 09/06/2016) - Family History Family History: Reports: Unknown - Social History Smoking Status: Former smoker Hx Substance Use: No Alcohol Screening: None Physical Exam - Physical Exam Appearance: Well-appearing Pain Distress: Moderate Eyes: RUDOLPH, EOMI, Conjunctiva clear ENT: Ears normal, Nose normal, Oropharynx normal Neck: Supple Respiratory: Airway patent, Breath sounds clear, Breath sounds equal, Respirations nonlabored Cardiovascular: RRR, Pulses normal, No rub, No murmur GI/: Soft, No masses, Bowel sounds normal, No Organomegaly, Tender ( epigastric area states infection of shunt tubing) Musculoskeletal: Normal strength, ROM intact, No edema, No calf tenderness Skin: Warm, Dry, Normal color Neurological: Sensation intact, Motor intact, Reflexes intact, Cranial nerves intact, Alert, Oriented Psychiatric: Affect appropriate, Mood appropriate Re-Evaluation - Re-Evaluation Time of Re-Evaluation: 17:06 (follow ing with Dr Crocker for botox this month) Status: Improved Critical Care Note - Critical Care Note Total Time (mins): 5 Course - Course Orders, Labs, Meds: Orders Category Date Time Status Diazepam Syringe [Valium Syringe] MEDS 01/14/17 15:44 Discontinued 2 mg IM ONCE STA Hydromorphone HCl [Dilaudid 1 mg/ml Syringe] MEDS 01/14/17 15:29 Discontinued 1 mg IM ONCE STA Ondansetron HCl/Pf [Zofran 4 mg/2 ml] MEDS 01/14/17 15:44 Discontinued 4 mg IM ONCE STA Medications Discontinued Medications Generic Name Dose Route Start Last Admin Trade Name Freq PRN Reason Stop Dose Admin Diazepam 2 mg 01/14/17 15:44 01/14/17 16:05 Valium Syringe IM 01/14/17 15:45 2 mg ONCE STA Administration Hydromorphone HCl 1 mg 01/14/17 15:29 01/14/17 16:04 Dilaudid 1 Mg/Ml Syringe IM 01/14/17 15:30 1 mg ONCE STA Administration Ondansetron HCl 4 mg 01/14/17 15:44 01/14/17 16:06 Zofran 4 Mg/2 Ml IM 01/14/17 15:45 4 mg ONCE STA Administration Vital Signs: Temp Pulse Resp BP Pulse Ox 01/14/17 13:57 98.3 F 121 H 16 133/85 99 Departure - Departure Time of Disposition: 17:09 Disposition: HOME SELF-CARE Discharge Problem: Headache Instructions: Migraine Headache (ED) Condition: Good Pt referred to PMD for follow-up: Yes Additional Instructions: inform PMD of ER visit follow up neurology as scheduled follow up PMD as directed Allergies/Adverse Reactions: Allergies hydrocodone bitartrate [From Vicodin] Allergy (Severe, Verified 01/14/17 14:07) Vomiting azithromycin [From Zithromax] Adverse Reaction (Verified 01/14/17 14:07) Difficulty Swallowing clarithromycin [From Biaxin] Adverse Reaction (Verified 01/14/17 14:07) Vomiting ketorolac tromethamine [From Toradol] Adverse Reaction (Verified 01/14/17 14:07) Difficulty Swallowing propoxyphene napsylate [From Darvocet-N] Adverse Reaction (Verified 01/14/17 14: 07) Vomiting sumatriptan [From Imitrex] Adverse Reaction (Verified 01/14/17 14:07) Difficulty Swallowing sumatriptan succinate [From Imitrex] Adverse Reaction (Verified 01/14/17 14:07) Difficulty Swallowing Home Medications: Ambulatory Orders Promethazine HCl [Phenergan Tab] 25 mg PO QID PRN #12 tablet 05/04/15 Oxycodone-Acetaminophen 5-325 [Percocet 5-325] 1 tab PO Q6H PRN 06/03/16 Acetazolamide [Diamox] 500 mg PO Q12HR 06/24/16 Cyclobenzaprine HCl [Flexeril] 10 mg PO TID 09/25/16 Docusate Sodium [Colace] 100 mg PO BID PRN 09/25/16 Rivaroxaban [Xarelto] 15 mg PO BID 09/25/16 Tamsulosin HCl [Flomax] 0.4 mg PO DAILY 09/25/16 Verapamil HCl 120 mg PO BEDTIME 12/09/16
[2017-01-14] MEDS ORDERED: DILAUDID 1 MG/ML SYRINGE IM STA (15:29)
[2017-01-14] MEDS ORDERED: VALIUM SYRINGE IM STA (15:44)
[2017-01-14] MEDS ORDERED: ZOFRAN 4 MG/2 ML IM STA (15:44)
== END 2017-01-14 17:15 | disposition home or self-care (01) ==
LOC: ED 13:57
DX: G43.909 Migraine, unspecified, not intractable, without status migrainosus (principal)
CPT/HCPCS: 96372; 99283

== ENCOUNTER 2017-04-08 13:55 | Outpatient (CLI) ==
--- NOTE | 2017-04-08 15:16 | CT ---
EXAM: CT lumbar spine without contrast. HISTORY: Radiculopathy COMPARISON: CT lumbar spine 04/05/2012 TECHNIQUE: Serial axial images of the spine were obtained from the lower thoracic spine through the pelvis without contrast. These were viewed in multiple planes. FINDINGS: Vertebral bodies demonstrate normal height, disc space and alignment. There is a small an terior disc osteophyte at L2-L3. There is no lytic or blastic lesion. There is no acute compression fracture or subluxation. Lumbosacral junction is intact. Transverse and posterior processes are nor mal. L1-L2: Normal L2-L3: Normal L3-L4: Normal L4-L5: Normal L5-S1: Normal Limited views of the soft tissues demonstrate tube coiled in the pelvis with minimal free fluid. The soft tissues demonstrate a nonobstructing punctate right renal stone. There has been a prior cholec ystectomy. IMPRESSION: 1. No acute compression fracture or subluxation of the lumbar spine with no significant central or n eural foraminal narrowing. 2. Minimal scattered degenerative disease with osteophyte formation at L2-L3. 3. Minimal free fluid in the pelvis with coil tube in the pelvis.
== END 2017-04-08 13:56 | disposition home or self-care (01) ==
LOC: RAD 13:55
PROVIDERS: ATTEND Emergency Medicine
DX: M47.26 Other spondylosis with radiculopathy, lumbar region (principal)

== ENCOUNTER 2017-04-09 10:42 | Outpatient (CLI) | END 2017-04-09 10:43 | disposition home or self-care (01) | LOC: RAD 10:42 | PROVIDERS: ATTEND Emergency Medicine | DX: Z12.31 Encounter for screening mammogram for malignant neoplasm of breast (principal) | CPT/HCPCS: 77067 ==

== ENCOUNTER 2017-05-11 20:20 | Emergency (ER) ==
[2017-05-11] MEDS ORDERED: ZOFRAN 4 MG/2 ML IM STA (20:31)
[2017-05-11] MEDS ORDERED: BENADRYL IM STA (20:31)
[2017-05-11] MEDS ORDERED: DILAUDID 2 MG/ML SYRINGE IM STA (20:31)
--- NOTE | 2017-05-11 20:34 | ED.PDOC ---
General ED Provider: Dr. VÍCTOR CHAUDHRY-ER Chief Complaint: Headache Stated Complaint: ponce had a headache now for 4 days wtih n/v--i had to go to [facility] a few weeks ago for the same Time Seen by Physician: 20:33 Mode of Arrival: Walk-In Information Source: Patient Exam Limitations: No limitations Primary [facility] and Triage Documentation Reviewed and Agree: Yes Reviewed sepsis parameters & appropriate labs ordered?: Yes System Inflammatory Response Syndrome: Not Applicable Sepsis Protocol: For patient's 13 years and over: Temp is 96.8 and below OR 101 and greater Pulse >90 BPM Resp >20/minute Acutely Altered Mental Status Are patient's symptoms suggestive of a new infection, such as: -Pneumonia -Skin, Soft Tissue -Endocarditis -UTI -Bone, Joint Infection -Implantable Device -Acute Abdominal Infection -Wound Infection -Meningitis -Blood Stream Catheter Infection -Unknown Neurological Complaint Exam - Headache Complaint/Exam Onset: Gradual Duration: 4 days Symptoms Are: Still present Timing: Constant Episodes Lasting: Days Worst Headache Ever: No Initial Severity: Mild Current Severity: Moderate Location: Diffuse Character: Reports: Dull, Throbbing, Pressure, Typical headache, Migraine Aggravating: Reports: Bright lights Alleviating: Reports: None Associated Signs and Symptoms: Reports: Nausea, Vomiting. Denies: Dizziness, Seizure, Sinus pressure, Fever, Neck stiffness, Visual changes Related History: Reports: Similar episode (no different than usual cruz) Temporal Arteritis Risk Factors: Reports: Female Normal Head CT Within Last 12 Months: Yes Fundoscopic Exam: Present: Normal Findings Papilledema Present: No Temporal Artery Tenderness: Present: None Sinus Tenderness: Present: None TMJ Tenderness: Present: None Glascow Coma Scale (see protocol): 15 Meningeal Signs Positive: No Pain on Passive Flexion-Positive Kernig's: No ROM Limited In: No Limitiations Focal Weakness: Present: None Focal Sensory Loss: Present: None Gait: Normal Nystagmus Present: No Gag Reflex Present: Yes [id number]: Normal Findings Romberg Test Positive: No Babinski Sign: Negative Right, Negative Left Heel to Toe Normal: Yes Differential Diagnoses: Migraine Review of Systems - Review Of Systems Constitutional: Reports: No symptoms Eyes: Reports: No symptoms Ears, Nose, Mouth, Throat: Reports: No symptoms Respiratory: Reports: No symptoms Cardiac: Reports: No symptoms GI: Reports: Nausea, Poor appetite, Vomiting : Reports: No symptoms Musculoskeletal: Reports: No symptoms Skin: Reports: No symptoms Neurological: Reports: Headache Endocrine: Reports: No symptoms Hematologic/Lymphatic: Reports: No symptoms All Other Systems: Reviewed and Negative Past Medical History - Past Medical History Previously Healthy: Yes Endocrine: Reports: None Cardiovascular: Reports: Hypertension Respiratory: Reports: None Hematological: Reports: None Gastrointestinal: Reports: GERD Genitourinary: Reports: None Neuro/Psych: Reports: Migraine Musculoskeletal: Reports: None Cancer: Reports: None Last Menstrual Period: PT HAS HAD A HYSTERECTOMY Other Pertinent Past Medical History: HYPOGLYCEMIA - Surgical History General Surgical History: Reports: Hysterectomy ([id number]), Other (sinus surgery 06/07/16, Lumbar puncture 06/21/16 shunt to brain 09/06/2016) - Family History Family History: Reports: Unknown - Social History Smoking Status: Former smoker Hx Substance Use: No Alcohol Screening: None Lives: With family - Immunizations Tetanus Shot up to Date: Yes Physical Exam - Physical Exam Appearance: Well-appearing, No pain distress, Well-nourished Pain Distress: Moderate Eyes: RUDOLPH, EOMI, Conjunctiva clear ENT: Ears normal, Nose normal, Oropharynx normal Neck: Supple Respiratory: Airway patent, Breath sounds clear, Breath sounds equal, Respirations nonlabored Cardiovascular: RRR, Pulses normal, No rub, No murmur GI/: Soft, Nontender, No masses, Bowel sounds normal, No Organomegaly Musculoskeletal: Normal strength, ROM intact, No edema, No calf tenderness Skin: Warm, Dry, Normal color Neurological: Sensation intact Psychiatric: Affect appropriate, Mood appropriate Re-Evaluation - Re-Evaluation Time of Re-Evaluation: 21:05 Status: Improved Vital Signs Stable: Yes Pain Level: 1 Appearance: NAD Lungs: Clear Skin: Warm and Dry Neuro: Alert and Oriented X3 CV: RRR Critical Care Note - Critical Care Note Total Time (mins): 0 Course - Course Orders, Labs, Meds: Orders Category Date Time Status Diphenhydramine Inj [Benadryl] MEDS 05/11/17 20:31 Discontinued 50 mg IM ONCE STA Hydromorphone HCl/Pf [Dilaudid 2 mg/ml Syringe] MEDS 05/11/17 20:31 Discontinued 2 mg IM ONCE STA Ondansetron HCl/Pf [Zofran 4 mg/2 ml] MEDS 05/11/17 20:31 Discontinued 4 mg IM ONCE STA CT HEAD W/O CONTRAST Stat RADS 05/11/17 20:28 Completed Medications Discontinued Medications Generic Name Dose Route Start Last Admin Trade Name Grisel PRN Reason Stop Dose Admin Diphenhydramine HCl 50 mg 05/11/17 20:31 05/11/17 20:53 Benadryl IM 05/11/17 20:32 50 mg ONCE STA Administration Hydromorphone HCl 2 mg 05/11/17 20:31 05/11/17 20:53 Dilaudid 2 Mg/Ml Syringe IM 05/11/17 20:32 2 mg ONCE STA Administration Ondansetron HCl 4 mg 05/11/17 20:31 05/11/17 20:51 Zofran 4 Mg/2 Ml IM 05/11/17 20:32 4 mg ONCE STA Administration Vital Signs: Temp Pulse Resp BP Pulse Ox 05/11/17 20:20 97.6 F 101 H 20 148/97 H 100 Departure - Departure Time of Disposition: 21:05 Disposition: HOME SELF-CARE Discharge Problem: Migraine headache Qualifiers: Migraine type: unspecified Status migrainosus presence: without status migrainosus Intractability: not intractable Qualified Code(s): G43.909 - Migraine, unspecified, not intractable, without status migrainosus Instructions: Migraine Headache (ED) Condition: Good Pt referred to PMD for follow-up: Yes IPMP verified?: No Additional Instructions: f/u with pcp/neurologist Allergies/Adverse Reactions: Allergies hydrocodone bitartrate [From Vicodin] Allergy (Severe, Verified 05/11/17 20:31) Vomiting azithromycin [From Zithromax] Adverse Reaction (Verified 05/11/17 20:31) Difficulty Swallowing clarithromycin [From Biaxin] Adverse Reaction (Verified 05/11/17 20:31) Vomiting ketorolac tromethamine [From Toradol] Adverse Reaction (Verified 05/11/17 20:31) Difficulty Swallowing propoxyphene napsylate [From Darvocet-N] Adverse Reaction (Verified 05/11/17 20: 31) Vomiting sumatriptan [From Imitrex] Adverse Reaction (Verified 05/11/17 20:31) Difficulty Swallowing sumatriptan succinate [From Imitrex] Adverse Reaction (Verified 05/11/17 20:31) Difficulty Swallowing Home Medications: Ambulatory Orders Promethazine HCl [Phenergan Tab] 25 mg PO QID PRN #12 tablet 05/04/15 Acetazolamide [Diamox] 500 mg PO Q12HR 06/24/16 Docusate Sodium [Colace] 100 mg PO BID PRN 09/25/16 Rivaroxaban [Xarelto] 15 mg PO BID 09/25/16 Tamsulosin HCl [Flomax] 0.4 mg PO DAILY 09/25/16 Verapamil HCl 120 mg PO BEDTIME 12/09/16 Topiramate [Trokendi Xr] 200 mg PO d 01/21/17 Baclofen 20 mg PO BID tab-cap 03/13/17 Diazepam 5 mg PO Q8HR PRN tab-cap 03/13/17 Disposition Discussed With: Patient
[2017-05-11 20:36] VITALS: BP 148/97; TEMP 97.6; BMI 29.7
--- NOTE | 2017-05-11 21:03 | CT ---
EXAM: CT scan of the head without contrast HISTORY: Headache TECHNIQUE: Helical imaging of the head was performed without contrast. 5 mm thin axial images and c oronal and sagittal images were provided for interpretation. Comparison CT scan of the head dated 11/18/2016. FINDINGS: There is stable appearance of a left transfrontal ventriculostomy catheter. The tip of th e catheter is seen within the body of the left lateral ventricle. 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 No acute hemorrhages are seen. There is no mass effect. There are no e xtraaxial collections. The lanier-white interface appears normal. The paranasal sinuses and mastoid a ir cells are clear. The calvarium appears normal. IMPRESSION: Stable appearance of the left transfrontal ventriculostomy catheter. Stable appearance of the ventricular system without worsening hydrocephalus. No acute intracranial abnormalities are seen.
== END 2017-05-11 21:49 | disposition home or self-care (01) ==
LOC: ED 20:20
DX: G43.909 Migraine, unspecified, not intractable, without status migrainosus (principal)
CPT/HCPCS: 96372; 99283

== ENCOUNTER 2017-06-07 15:44 | Emergency (ER) ==
[2017-06-07 15:49] VITALS: BP 134/92; TEMP 97.2; BMI 29.6
--- NOTE | 2017-06-07 18:36 | ED.PDOC ---
General ED Provider: Dr. VÍCTOR BARRIGA Chief Complaint: Headache Stated Complaint: Has experienced severe pain most of day located in rt hemicranial region. Also has soft fullness back of head that is uncomfortable. No LOC. Hx chronic migraines and normally has go come to ER and obtain an injection. Accompained by son. Time Seen by Physician: 16:30 Mode of Arrival: Walk-In Information Source: Patient Exam Limitations: No limitations Primary Care Provider: SUZANNE POWERSBrianna Referred to ED by: PCP (PCP Dr Denis) Nursing and Triage Documentation Reviewed and Agree: Yes Reviewed sepsis parameters & appropriate labs ordered?: Yes System Inflammatory Response Syndrome: Not Applicable Sepsis Protocol: For patient's 13 years and over: Temp is 96.8 and below OR 101 and greater Pulse >90 BPM Resp >20/minute Acutely Altered Mental Status Are patient's symptoms suggestive of a new infection, such as: -Pneumonia -Skin, Soft Tissue -Endocarditis -UTI -Bone, Joint Infection -Implantable Device -Acute Abdominal Infection -Wound Infection -Meningitis -Blood Stream Catheter Infection -Unknown System Inflammatory Response Syndrome: Not Applicable Neurological Complaint Exam - Headache Complaint/Exam Onset: Gradual Duration: 12 hrs Symptoms Are: Still present Timing: Constant Episodes Lasting: Hours Worst Headache Ever: No Initial Severity: Severe Current Severity: Moderate Location: Right, Occipital Character: Reports: Sharp, Dull, Throbbing, Migraine Aggravating: Reports: Exertion, Bright lights Alleviating: Reports: Rest, Medications, Position change Associated Signs and Symptoms: Reports: Nausea, Vomiting. Denies: Dizziness, Seizure, Sinus pressure, Neck pain, Neck stiffness, Decreased LOC Related History: Reports: Similar episode Related Surgical History: Reports: None SAH Risk Factors: Reports: None Meningitis Risk Factors: Reports: None SDH Risk Factors: Reports: None Temporal Arteritis Risk Factors: Reports: None Normal Head CT Within Last 12 Months: Yes Temporal Artery Tenderness: Present: None Sinus Tenderness: Present: None TMJ Tenderness: Present: None Meningeal Signs Positive: No Pain on Passive Flexion-Positive Kernig's: No ROM Limited In: No Limitiations Focal Weakness: Present: None Focal Sensory Loss: Present: None Gait: Normal Nystagmus Present: No Gag Reflex Present: Yes [id number]: Normal Findings Babinski Sign: Negative Right, Negative Left Differential Diagnoses: Migraine, Tension Headache Review of Systems - Review Of Systems Constitutional: Reports: No symptoms Eyes: Reports: No symptoms Ears, Nose, Mouth, Throat: Reports: No symptoms Respiratory: Reports: No symptoms Cardiac: Reports: No symptoms GI: Reports: No symptoms : Reports: No symptoms Musculoskeletal: Reports: No symptoms Skin: Reports: No symptoms Neurological: Reports: No symptoms, Headache Endocrine: Reports: No symptoms Hematologic/Lymphatic: Reports: No symptoms All Other Systems: Reviewed and Negative Past Medical History - Past Medical History Previously Healthy: Yes Endocrine: Reports: None Cardiovascular: Reports: Hypertension Respiratory: Reports: None Hematological: Reports: None Gastrointestinal: Reports: GERD Genitourinary: Reports: None Neuro/Psych: Reports: Migraine Musculoskeletal: Reports: None Cancer: Reports: None Last Menstrual Period: na Other Pertinent Past Medical History: HYPOGLYCEMIA - Surgical History General Surgical History: Reports: Hysterectomy ([id number]), Other (sinus surgery 06/07/16, Lumbar puncture 06/21/16 shunt to brain 09/06/2016) - Family History Family History: Reports: Unknown - Social History Smoking Status: Never smoker Hx Substance Use: No Alcohol Screening: None - Immunizations Tetanus Shot up to Date: Yes Physical Exam - Physical Exam Appearance: Well-appearing, No pain distress, Well-nourished Ill-appearing: Mild (posterior scalp fullness /no appreciable mass) Eyes: RUDOLPH, EOMI, Conjunctiva clear ENT: Ears normal, Nose normal, Oropharynx normal Respiratory: Airway patent, Breath sounds clear, Breath sounds equal, Respirations nonlabored Cardiovascular: RRR, Pulses normal, No rub, No murmur GI/: Soft, Nontender, No masses, Bowel sounds normal, No Organomegaly Musculoskeletal: Normal strength, ROM intact, No edema, No calf tenderness Skin: Warm, Dry, Normal color Neurological: Sensation intact, Motor intact, Reflexes intact, Cranial nerves intact, Alert, Oriented Psychiatric: Affect appropriate, Mood appropriate Re-Evaluation - Re-Evaluation Time of Re-Evaluation: 18:15 Status: Improved Vital Signs Stable: Yes Appearance: NAD Lungs: Clear Skin: Warm and Dry Neuro: Alert and Oriented X3 CV: RRR Critical Care Note - Critical Care Note Total Time (mins): 0 Course - Course Orders, Labs, Meds: Orders Category Date Time Status Hydromorphone HCl [Dilaudid 1 mg/ml Syringe] MEDS 06/07/17 18:45 Discontinued 1 mg IM ONCE STA Promethazine HCl [Phenergan 25 mg/ml Vial] MEDS 06/07/17 18:46 Discontinued 25 mg IM ONCE STA Medications Discontinued Medications Generic Name Dose Route Start Last Admin Trade Name Grisel PRN Reason Stop Dose Admin Hydromorphone HCl 1 mg 06/07/17 18:45 06/07/17 19:02 Dilaudid 1 Mg/Ml Syringe IM 06/07/17 18:46 1 mg ONCE STA Administration Promethazine HCl 25 mg 06/07/17 18:46 06/07/17 19:03 Phenergan 25 Mg/Ml Vial IM 06/07/17 18:47 25 mg ONCE STA Administration Vital Signs: Temp Pulse Resp BP Pulse Ox 06/07/17 15:45 97.2 F L 81 16 134/92 H 98 Departure - Departure Time of Disposition: 19:50 Disposition: HOME SELF-CARE Discharge Problem: Migraine headache Instructions: Migraine Headache (ED) Condition: Good Pt referred to PMD for follow-up: Yes IPMP verified?: No Additional Instructions: Remain on home meds for treatment of migraine headaches Return to ER as needed Allergies/Adverse Reactions: Allergies hydrocodone bitartrate [From Vicodin] Allergy (Severe, Verified 06/07/17 15:51) Vomiting azithromycin [From Zithromax] Adverse Reaction (Verified 06/07/17 15:51) Difficulty Swallowing clarithromycin [From Biaxin] Adverse Reaction (Verified 06/07/17 15:51) Vomiting ketorolac tromethamine [From Toradol] Adverse Reaction (Verified 06/07/17 15:51) Difficulty Swallowing propoxyphene napsylate [From Darvocet-N] Adverse Reaction (Verified 06/07/17 15: 51) Vomiting sumatriptan [From Imitrex] Adverse Reaction (Verified 06/07/17 15:51) Difficulty Swallowing sumatriptan succinate [From Imitrex] Adverse Reaction (Verified 06/07/17 15:51) Difficulty Swallowing Home Medications: Ambulatory Orders Promethazine HCl [Phenergan Tab] 25 mg PO QID PRN #12 tablet 05/04/15 Acetazolamide [Diamox] 500 mg PO Q12HR 06/24/16 Docusate Sodium [Colace] 100 mg PO BID PRN 09/25/16 Tamsulosin HCl [Flomax] 0.4 mg PO DAILY 09/25/16 Verapamil HCl 120 mg PO BEDTIME 12/09/16 Topiramate [Trokendi Xr] 200 mg PO d 01/21/17 Baclofen 20 mg PO BID tab-cap 03/13/17 Diazepam 5 mg PO Q8HR PRN tab-cap 03/13/17 Disposition Discussed With: Patient, Family
[2017-06-07] MEDS ORDERED: DILAUDID 1 MG/ML SYRINGE IM STA (18:45)
[2017-06-07] MEDS ORDERED: PHENERGAN 25 MG/ML VIAL IM STA (18:46)
== END 2017-06-07 20:23 | disposition home or self-care (01) ==
LOC: ED 15:44
DX: G43.909 Migraine, unspecified, not intractable, without status migrainosus (principal)
CPT/HCPCS: 96372; 99283

== ENCOUNTER 2017-06-17 20:15 | Emergency (ER) ==
[2017-06-17 20:27] VITALS: BP 134/93; TEMP 97.5; BMI 29.1
[2017-06-17] MEDS ORDERED: DEMEROL 25 MG/ML VIAL IM STA (21:15)
[2017-06-17] MEDS ORDERED: ZOFRAN 4 MG/2 ML IM STA (21:15)
--- NOTE | 2017-06-17 21:18 | ED.PDOC ---
General ED Provider: Dr. SUZANNE MENDOZA Chief Complaint: Head Injury Stated Complaint: Patient was getting the grocery from the cars Trunk, it fell on the head, ever since it is hurting. she is been dizzi. Time Seen by Physician: 21:16 Mode of Arrival: Walk-In Information Source: Patient Primary Care Provider: SUZANNE MENDOZA-[facility] Nursing and Triage Documentation Reviewed and Agree: Yes Reviewed sepsis parameters & appropriate labs ordered?: No System Inflammatory Response Syndrome: Not Applicable Sepsis Protocol: For patient's 13 years and over: Temp is 96.8 and below OR 101 and greater Pulse >90 BPM Resp >20/minute Acutely Altered Mental Status Are patient's symptoms suggestive of a new infection, such as: -Pneumonia -Skin, Soft Tissue -Endocarditis -UTI -Bone, Joint Infection -Implantable Device -Acute Abdominal Infection -Wound Infection -Meningitis -Blood Stream Catheter Infection -Unknown Neurological Complaint Exam - Headache Complaint/Exam Onset: Gradual Symptoms Are: Still present Timing: Constant Episodes Lasting: Hours Worst Headache Ever: No Initial Severity: Moderate Current Severity: Moderate Location: Frontal Character: Reports: Dull, Throbbing Aggravating: Reports: None Alleviating: Reports: None Associated Signs and Symptoms: Reports: Neck pain. Denies: Dizziness, Seizure, Nausea, Vomiting, Sinus pressure, Fever, Neck stiffness, Decreased LOC, Visual changes Related History: Reports: Similar episode Related Surgical History: Reports: None SAH Risk Factors: Reports: None Meningitis Risk Factors: Reports: None SDH Risk Factors: Reports: None Temporal Arteritis Risk Factors: Reports: None Normal Head CT Within Last 12 Months: Yes Meningeal Signs Positive: No Pain on Passive Flexion-Positive Kernig's: No ROM Limited In: No Limitiations Focal Weakness: Present: None Focal Sensory Loss: Present: None Gait: Normal Nystagmus Present: No Gag Reflex Present: No [id number]: Normal Findings Romberg Test Positive: No Babinski Sign: Negative Right, Negative Left Heel to Toe Normal: No Differential Diagnoses: Subdural Hematoma Review of Systems - Review Of Systems Constitutional: Reports: No symptoms Eyes: Reports: No symptoms Ears, Nose, Mouth, Throat: Reports: No symptoms Respiratory: Reports: No symptoms Cardiac: Reports: No symptoms GI: Reports: No symptoms : Reports: No symptoms Musculoskeletal: Reports: No symptoms Skin: Reports: No symptoms Neurological: Reports: Headache Endocrine: Reports: No symptoms Hematologic/Lymphatic: Reports: No symptoms All Other Systems: Reviewed and Negative Past Medical History - Past Medical History Previously Healthy: Yes Endocrine: Reports: None Cardiovascular: Reports: Hypertension Respiratory: Reports: None Hematological: Reports: None Gastrointestinal: Reports: GERD Genitourinary: Reports: None Neuro/Psych: Reports: Migraine Musculoskeletal: Reports: None Cancer: Reports: None Last Menstrual Period: na Other Pertinent Past Medical History: HYPOGLYCEMIA - Surgical History General Surgical History: Reports: Hysterectomy ([id number]), Other (sinus surgery 06/07/16, Lumbar puncture 06/21/16 shunt to brain 09/06/2016) - Family History Family History: Reports: Unknown - Social History Smoking Status: Never smoker Hx Substance Use: No Alcohol Screening: None - Immunizations Tetanus Shot up to Date: Yes Physical Exam - Physical Exam Appearance: Well-appearing, Well-nourished Pain Distress: Moderate Eyes: RUDOLPH, EOMI, Conjunctiva clear ENT: Ears normal, Nose normal, Oropharynx normal Respiratory: Airway patent, Breath sounds clear, Breath sounds equal, Respirations nonlabored Cardiovascular: RRR, Pulses normal, No rub, No murmur GI/: Soft, Nontender, No masses, Bowel sounds normal, No Organomegaly Musculoskeletal: Normal strength, ROM intact, No edema, No calf tenderness Skin: Warm, Dry, Normal color Neurological: Sensation intact, Motor intact, Reflexes intact, Cranial nerves intact, Alert, Oriented Psychiatric: Affect appropriate, Mood appropriate Interpretation - Radiology Interpretation Radiology Interpretation By: Radiologist Radiology Results: Negative Exam Interpreted: CT Scan Critical Care Note - Critical Care Note Total Time (mins): 30 Course - Course Orders, Labs, Meds: Orders Category Date Time Status Meperidine HCl/Pf [Demerol 25 mg/ml Vial] MEDS 06/17/17 21:15 Discontinued 25 mg IM ONCE STA Ondansetron HCl/Pf [Zofran 4 mg/2 ml] MEDS 06/17/17 21:15 Discontinued 4 mg IM ONCE STA CT HEAD W/O CONTRAST Stat RADS 06/17/17 21:15 Completed Medications Discontinued Medications Generic Name Dose Route Start Last Admin Trade Name Freq PRN Reason Stop Dose Admin Meperidine HCl 25 mg 06/17/17 21:15 06/17/17 21:30 Demerol 25 Mg/Ml Vial IM 06/17/17 21:16 25 mg ONCE STA Administration Ondansetron HCl 4 mg 06/17/17 21:15 06/17/17 21:30 Zofran 4 Mg/2 Ml IM 06/17/17 21:16 4 mg ONCE STA Administration Vital Signs: Temp Pulse Resp BP Pulse Ox 06/17/17 20:17 97.5 F L 87 18 134/93 H 98 Departure - Departure Time of Disposition: 22:36 Disposition: HOME SELF-CARE Discharge Problem: Injury of head Instructions: Head Injury (ED) Condition: Stable Pt referred to PMD for follow-up: Yes IPMP verified?: No Additional Instructions: Keep f/u with Dr Rees on . Allergies/Adverse Reactions: Allergies hydrocodone bitartrate [From Vicodin] Allergy (Severe, Verified 06/07/17 15:51) Vomiting azithromycin [From Zithromax] Adverse Reaction (Verified 06/07/17 15:51) Difficulty Swallowing clarithromycin [From Biaxin] Adverse Reaction (Verified 06/07/17 15:51) Vomiting ketorolac tromethamine [From Toradol] Adverse Reaction (Verified 06/07/17 15:51) Difficulty Swallowing propoxyphene napsylate [From Darvocet-N] Adverse Reaction (Verified 06/07/17 15: 51) Vomiting sumatriptan [From Imitrex] Adverse Reaction (Verified 06/07/17 15:51) Difficulty Swallowing sumatriptan succinate [From Imitrex] Adverse Reaction (Verified 06/07/17 15:51) Difficulty Swallowing Home Medications: Ambulatory Orders Promethazine HCl [Phenergan Tab] 25 mg PO QID PRN #12 tablet 05/04/15 Acetazolamide [Diamox] 500 mg PO Q12HR 06/24/16 Docusate Sodium [Colace] 100 mg PO BID PRN 09/25/16 Tamsulosin HCl [Flomax] 0.4 mg PO DAILY 09/25/16 Verapamil HCl 120 mg PO BEDTIME 12/09/16 Topiramate [Trokendi Xr] 200 mg PO d 01/21/17 Baclofen 20 mg PO BID tab-cap 03/13/17 Diazepam 5 mg PO Q8HR PRN tab-cap 03/13/17 Disposition Discussed With: Patient
--- NOTE | 2017-06-17 22:33 | CT ---
EXAM: CT head without contrast 06/17/2017 HISTORY: Injury with pain COMPARISON: 05/11/2017 FINDINGS: There is no evidence of intracranial hemorrhage. The midline is maintained. There is no h ydrocephalus. Left trans frontal ventriculostomy catheter is present. This terminates at the level of the lateral ventricle and appears stable. No cerebellar tonsillar ectopia. Evaluation of the santos varium shows no fracture. The mastoid air cells are normally pneumatized. IMPRESSION: No acute intracranial abnormality.
== END 2017-06-17 22:50 | disposition home or self-care (01) ==
LOC: ED 20:15
DX: S09.90XA Unspecified injury of head, initial encounter (principal); W22.8XXA Striking against or struck by other objects, initial encounter
CPT/HCPCS: 96372; 99283

== ENCOUNTER 2017-06-29 01:59 | Outpatient (CLI) | END 2017-06-29 02:00 | disposition short-term general hospital (02) | LOC: AMBL 01:59 | PROVIDERS: ATTEND Internal Medicine Geriatric Medicine | DX: R51 Headache (principal); R42 Dizziness and giddiness; I10 Essential (primary) hypertension; Z86.718 Personal history of other venous thrombosis and embolism ==

== ENCOUNTER 2017-07-21 10:51 | Emergency (ER) ==
[2017-07-21 11:04] VITALS: BP 126/82; TEMP 97.2; BMI 29.2
--- NOTE | 2017-07-21 12:30 | CT ---
EXAM: CT BRAIN HISTORY: Pain posterior scalp TECHNIQUE: CT brain without intravenous contrast. 5-mm axial sections with Reformations. COMPARISON: 06/17/2017 FINDINGS: There is a left frontal approach ventriculostomy tube remaining in place. The ventricles remain deco mpressed. There is no intracranial hemorrhage, mass or mass effect. No evidence of recent large ves jayesh distribution ischemic infarction or subdural hematoma. The visualized paranasal sinuses are clear . Mastoid processes are aerated. No distinct peripheral soft tissue pathology identified. IMPRESSION: 1. No distinct peripheral soft tissue pathology identified by CT. 2. Ventriculostomy tube is stable. Ventricles remain decompressed. 3. No acute intracranial process.
--- NOTE | 2017-07-21 12:38 | ED.PDOC ---
General ED Provider: Dr. BRE RODRIGUEZ Chief Complaint: Headache Stated Complaint: headache Time Seen by Physician: 11:00 (seen with ananth) Mode of Arrival: Walk-In Information Source: Patient Exam Limitations: No limitations [facility] T[facility] Documentation Reviewed and Agree: Yes Reviewed sepsis parameters & appropriate labs ordered?: Yes System Inflammatory Response Syndrome: Not Applicable Sepsis Protocol: For patient's 13 years and over: Temp is 96.8 and below OR 101 and greater Pulse >90 BPM Resp >20/minute Acutely Altered Mental Status Are patient's symptoms suggestive of a new infection, such as: -Pneumonia -Skin, Soft Tissue -Endocarditis -UTI -Bone, Joint Infection -Implantable Device -Acute Abdominal Infection -Wound Infection -Meningitis -Blood Stream Catheter Infection -Unknown System Inflammatory Response Syndrome: Not Applicable Neurological Complaint Exam - Headache Complaint/Exam Onset: Gradual Duration: chronic worse today Episodes Lasting: Days Worst Headache Ever: No Initial Severity: Moderate Current Severity: None Location: Occipital Character: Reports: Dull Aggravating: Reports: None Alleviating: Reports: None Associated Signs and Symptoms: Denies: Dizziness, Seizure, Nausea, Vomiting, Sinus pressure, Fever, Neck pain, Neck stiffness, Decreased LOC, Visual changes Related History: Reports: Similar episode Related Surgical History: Reports: None SAH Risk Factors: Reports: None Meningitis Risk Factors: Reports: None SDH Risk Factors: Reports: None Temporal Arteritis Risk Factors: Reports: None Normal Head CT Within Last 12 Months: No Papilledema Present: No Temporal Artery Tenderness: Present: None Sinus Tenderness: Present: None TMJ Tenderness: Present: None Glascow Coma Scale (see protocol): 15 Meningeal Signs Positive: No Pain on Passive Flexion-Positive Kernig's: No ROM Limited In: No Limitiations Focal Weakness: Present: None Focal Sensory Loss: Present: None Gait: Normal Review of Systems - Review Of Systems Constitutional: Reports: No symptoms Eyes: Reports: No symptoms Ears, Nose, Mouth, Throat: Reports: No symptoms Respiratory: Reports: No symptoms Cardiac: Reports: No symptoms GI: Reports: No symptoms : Reports: No symptoms Musculoskeletal: Reports: No symptoms Skin: Reports: No symptoms Neurological: Reports: Headache Endocrine: Reports: No symptoms Hematologic/Lymphatic: Reports: No symptoms All Other Systems: Reviewed and Negative Past Medical History - Past Medical History Previously Healthy: Yes Endocrine: Reports: None Cardiovascular: Reports: Hypertension Respiratory: Reports: None Hematological: Reports: None Gastrointestinal: Reports: GERD Genitourinary: Reports: None Neuro/Psych: Reports: Migraine Musculoskeletal: Reports: None Cancer: Reports: None Last Menstrual Period: hysterectomy Other Pertinent Past Medical History: HYPOGLYCEMIA - Surgical History General Surgical History: Reports: Hysterectomy ([id number]), Other (sinus surgery 06/07/16, Lumbar puncture 06/21/16 shunt to brain 09/06/2016) - Family History Family History: Reports: Unknown - Social History Smoking Status: Never smoker Hx Substance Use: No Alcohol Screening: None Physical Exam - Physical Exam Appearance: Well-appearing, No pain distress, Well-nourished Eyes: RUDOLPH, EOMI, Conjunctiva clear ENT: Ears normal, Nose normal, Oropharynx normal Respiratory: Airway patent, Breath sounds clear, Breath sounds equal, Respirations nonlabored Cardiovascular: RRR, Pulses normal, No rub, No murmur GI/: Soft, Nontender, No masses, Bowel sounds normal, No Organomegaly Musculoskeletal: Normal strength, ROM intact, No edema, No calf tenderness Skin: Warm, Dry, Normal color Neurological: Sensation intact, Motor intact, Reflexes intact, Cranial nerves intact, Alert, Oriented Psychiatric: Affect appropriate, Mood appropriate Critical Care Note - Critical Care Note Total Time (mins): 0 Course - Course Orders, Labs, Meds: Orders Category Date Time Status CT HEAD W/O CONTRAST Stat RADS 07/21/17 11:44 Completed Vital Signs: Temp Pulse Resp BP Pulse Ox 07/21/17 10:52 97.2 F L 102 H 20 126/82 98 Departure - Departure Time of Disposition: 12:38 Disposition: HOME SELF-CARE Discharge Problem: Headache Instructions: Acute Headache (ED) Condition: Good Pt referred to PMD for follow-up: Yes IPMP verified?: No Additional Instructions: Please call your Family Physician as soon as possible to schedule a follow-up appointment. Allergies/Adverse Reactions: Allergies hydrocodone bitartrate [From Vicodin] Allergy (Severe, Verified 07/21/17 11:04) Vomiting azithromycin [From Zithromax] Adverse Reaction (Verified 07/21/17 11:04) Difficulty Swallowing clarithromycin [From Biaxin] Adverse Reaction (Verified 07/21/17 11:04) Vomiting ketorolac tromethamine [From Toradol] Adverse Reaction (Verified 07/21/17 11:04) Difficulty Swallowing propoxyphene napsylate [From Darvocet-N] Adverse Reaction (Verified 07/21/17 11: 04) Vomiting sumatriptan [From Imitrex] Adverse Reaction (Verified 07/21/17 11:04) Difficulty Swallowing sumatriptan succinate [From Imitrex] Adverse Reaction (Verified 07/21/17 11:04) Difficulty Swallowing Home Medications: Ambulatory Orders Promethazine HCl [Phenergan Tab] 25 mg PO QID PRN #12 tablet 05/04/15 Acetazolamide [Diamox] 500 mg PO Q12HR 06/24/16 Docusate Sodium [Colace] 100 mg PO BID PRN 09/25/16 Tamsulosin HCl [Flomax] 0.4 mg PO DAILY 09/25/16 Verapamil HCl 120 mg PO BEDTIME 12/09/16 Topiramate [Trokendi Xr] 200 mg PO d 01/21/17 Baclofen 20 mg PO BID tab-cap 03/13/17 Diazepam 5 mg PO Q8HR PRN tab-cap 03/13/17
== END 2017-07-21 12:50 | disposition home or self-care (01) ==
LOC: ED 10:51
DX: R51 Headache (principal)
CPT/HCPCS: 99283

== ENCOUNTER 2017-08-08 19:25 | Emergency (ER) ==
[2017-08-08 19:31] VITALS: BP 132/85; TEMP 97.5; BMI 28.9
[2017-08-08] MEDS ORDERED: PHENERGAN 25 MG/ML VIAL IM STA (19:50)
[2017-08-08] MEDS ORDERED: DEMEROL 50 MG/ML VIAL IM STA (19:50)
--- NOTE | 2017-08-08 19:54 | ED.PDOC ---
General ED Provider: Dr. SAVANNA BOWMAN Chief Complaint: Headache Stated Complaint: Headaches for the past 5 days. Not better with home medications. Has a history of a ventricular shunt. Time Seen by Physician: 19:40 Mode of Arrival: Walk-In Information Source: Patient Exam Limitations: No limitations Primary Care Provider: [facility] Nursing and Triage Documentation Reviewed and Agree: Yes Reviewed sepsis parameters & appropriate labs ordered?: No System Inflammatory Response Syndrome: Not Applicable Sepsis Protocol: For patient's 13 years and over: Temp is 96.8 and below OR 101 and greater Pulse >90 BPM Resp >20/minute Acutely Altered Mental Status Are patient's symptoms suggestive of a new infection, such as: -Pneumonia -Skin, Soft Tissue -Endocarditis -UTI -Bone, Joint Infection -Implantable Device -Acute Abdominal Infection -Wound Infection -Meningitis -Blood Stream Catheter Infection -Unknown Neurological Complaint Exam - Headache Complaint/Exam Onset: Gradual Duration: 5 days Symptoms Are: Still present Timing: Constant Worst Headache Ever: No Initial Severity: Moderate Current Severity: Severe Location: Right, Left, Frontal Character: Reports: Dull, Throbbing Aggravating: Reports: Bright lights Associated Signs and Symptoms: Reports: Nausea. Denies: Dizziness, Seizure, Vomiting, Sinus pressure, Fever, Neck pain, Neck stiffness, Decreased LOC, Visual changes Related History: Reports: Similar episode Related Surgical History: Reports: Craniotomy, POSTMASTER Shunt SAH Risk Factors: Reports: -anguillan Meningitis Risk Factors: Reports: None SDH Risk Factors: Reports: None Temporal Arteritis Risk Factors: Reports: None Normal Head CT Within Last 12 Months: Yes Fundoscopic Exam: Present: Normal Findings Papilledema Present: No Temporal Artery Tenderness: Present: None Sinus Tenderness: Present: None TMJ Tenderness: Present: None Glascow Coma Scale (see protocol): 15 Meningeal Signs Positive: No Pain on Passive Flexion-Positive Kernig's: No ROM Limited In: No Limitiations Focal Weakness: Present: None Focal Sensory Loss: Present: None Gait: Normal Nystagmus Present: No Gag Reflex Present: No [id number]: Normal Findings Romberg Test Positive: No Babinski Sign: Negative Right, Negative Left Heel to Toe Normal: No Differential Diagnoses: Tension Headache Review of Systems - Review Of Systems Constitutional: Reports: No symptoms Eyes: Reports: No symptoms Ears, Nose, Mouth, Throat: Reports: No symptoms Respiratory: Reports: No symptoms Cardiac: Reports: No symptoms GI: Reports: Nausea : Reports: No symptoms Musculoskeletal: Reports: No symptoms Skin: Reports: No symptoms Neurological: Reports: Anxiety, Headache Endocrine: Reports: No symptoms Hematologic/Lymphatic: Reports: No symptoms All Other Systems: Reviewed and Negative Past Medical History - Past Medical History Previously Healthy: Yes Endocrine: Reports: None Cardiovascular: Reports: Hypertension Respiratory: Reports: None Hematological: Reports: None Gastrointestinal: Reports: GERD Genitourinary: Reports: None Neuro/Psych: Reports: Migraine Musculoskeletal: Reports: None Cancer: Reports: None Last Menstrual Period: na Other Pertinent Past Medical History: HYPOGLYCEMIA - Surgical History General Surgical History: Reports: Hysterectomy ([id number]), Other (sinus surgery 06/07/16, Lumbar puncture 06/21/16 shunt to brain 09/06/2016) - Family History Family History: Reports: Unknown - Social History Smoking Status: Never smoker Hx Substance Use: No Alcohol Screening: None - Immunizations Tetanus Shot up to Date: Yes Physical Exam - Physical Exam Appearance: Ill-appearing, Obese Ill-appearing: Moderate Pain Distress: Severe Eyes: RUDOLPH, EOMI, Conjunctiva clear Neck: Supple Respiratory: Airway patent, Breath sounds clear, Breath sounds equal, Respirations nonlabored Cardiovascular: Pulses normal, No rub, No murmur, Tachycardia GI/: Soft, Nontender, No masses, Bowel sounds normal, No Organomegaly Musculoskeletal: Normal strength, ROM intact, No edema, No calf tenderness Skin: Warm, Dry, Normal color Neurological: Sensation intact, Motor intact, Reflexes intact, Cranial nerves intact, Alert, Oriented Psychiatric: Anxious Re-Evaluation - Re-Evaluation Time of Re-Evaluation: 20:30 Status: Improved Vital Signs Stable: Yes Pain Level: better Appearance: NAD Critical Care Note - Critical Care Note Total Time (mins): 0 Course - Course Orders, Labs, Meds: Orders Category Date Time Status Meperidine HCl/Pf [Demerol 50 mg/ml Vial] MEDS 08/08/17 19:50 Stat 50 mg IM ONCE STA Promethazine HCl [Phenergan 25 mg/ml Vial] MEDS 08/08/17 19:50 Stat 25 mg IM ONCE STA Medications Generic Name Dose Route Start Last Admin Trade Name Freq PRN Reason Stop Dose Admin Meperidine HCl 50 mg 08/08/17 19:50 Demerol 50 Mg/Ml Vial IM 08/08/17 19:51 ONCE STA Promethazine HCl 25 mg 08/08/17 19:50 Phenergan 25 Mg/Ml Vial IM 08/08/17 19:51 ONCE STA Vital Signs: Temp Pulse Resp BP Pulse Ox 08/08/17 19:26 97.5 F L 106 H 18 132/85 98 Departure - Departure Time of Disposition: 20:30 Disposition: HOME SELF-CARE Discharge Problem: Headache Instructions: Acute Headache (ED), General Headache (ED) Condition: Fair Pt referred to PMD for follow-up: Yes IPMP verified?: No Additional Instructions: Continue home medications as prescribed Follow up with Neurologist next week. Allergies/Adverse Reactions: Allergies hydrocodone bitartrate [From Vicodin] Allergy (Severe, Verified 07/21/17 11:04) Vomiting azithromycin [From Zithromax] Adverse Reaction (Verified 07/21/17 11:04) Difficulty Swallowing clarithromycin [From Biaxin] Adverse Reaction (Verified 07/21/17 11:04) Vomiting ketorolac tromethamine [From Toradol] Adverse Reaction (Verified 07/21/17 11:04) Difficulty Swallowing propoxyphene napsylate [From Darvocet-N] Adverse Reaction (Verified 07/21/17 11: 04) Vomiting sumatriptan [From Imitrex] Adverse Reaction (Verified 07/21/17 11:04) Difficulty Swallowing sumatriptan succinate [From Imitrex] Adverse Reaction (Verified 07/21/17 11:04) Difficulty Swallowing Home Medications: Ambulatory Orders Promethazine HCl [Phenergan Tab] 25 mg PO QID PRN #12 tablet 05/04/15 Acetazolamide [Diamox] 500 mg PO Q12HR 06/24/16 Docusate Sodium [Colace] 100 mg PO BID PRN 09/25/16 Tamsulosin HCl [Flomax] 0.4 mg PO DAILY 09/25/16 Verapamil HCl 120 mg PO BEDTIME 12/09/16 Topiramate [Trokendi Xr] 200 mg PO d 01/21/17 Baclofen 20 mg PO BID tab-cap 03/13/17 Diazepam 5 mg PO Q8HR PRN tab-cap 03/13/17 Disposition Discussed With: Patient, Family
== END 2017-08-08 20:30 | disposition home or self-care (01) ==
LOC: ED 19:25
DX: R51 Headache (principal)
CPT/HCPCS: 96372; 99283

== ENCOUNTER 2017-08-26 14:59 | Outpatient (CLI) | END 2017-08-26 15:00 | disposition home or self-care (01) | LOC: CAR 14:59 | DX: G47.33 Obstructive sleep apnea (adult) (pediatric) (principal); R06.81 Apnea, not elsewhere classified ==

== ENCOUNTER 2017-09-02 19:35 | Emergency (ER) ==
[2017-09-02 19:35] VITALS: BMI 28.9
[2017-09-02 19:37] VITALS: BP 128/90; TEMP 97.5
--- NOTE | 2017-09-02 19:46 | ED.PDOC ---
General ED Provider: Dr. SUZANNE MENDOZA Chief Complaint: Headache Stated Complaint: Came for the headache for 4 days, typical type. no blurry vision Time Seen by Physician: 19:45 Mode of Arrival: Walk-In Information Source: Patient Primary Care Provider: SUZANNE MENDOZA[facility] Nursing and Triage Documentation Reviewed and Agree: Yes Does patient meet sepsis criteria?: No If yes, has appropriate treatment been initiated?: No System Inflammatory Response Syndrome: Not Applicable Sepsis Protocol: For patient's 13 years and over: Temp is 96.8 and below OR 101 and greater Pulse >90 BPM Resp >20/minute Acutely Altered Mental Status Are patient's symptoms suggestive of a new infection, such as: -Pneumonia -Skin, Soft Tissue -Endocarditis -UTI -Bone, Joint Infection -Implantable Device -Acute Abdominal Infection -Wound Infection -Meningitis -Blood Stream Catheter Infection -Unknown Neurological Complaint Exam - Headache Complaint/Exam Onset: Gradual Symptoms Are: Still present Timing: Constant Episodes Lasting: Hours Worst Headache Ever: No Initial Severity: Moderate Current Severity: Moderate Location: Right, Left, Frontal Character: Reports: Dull, Throbbing, Typical headache Aggravating: Reports: None Alleviating: Reports: None Associated Signs and Symptoms: Denies: Dizziness, Seizure, Nausea, Vomiting, Sinus pressure, Fever, Neck pain, Neck stiffness, Decreased LOC, Visual changes Related Surgical History: Reports: None SAH Risk Factors: Reports: None Meningitis Risk Factors: Reports: None SDH Risk Factors: Reports: None Temporal Arteritis Risk Factors: Reports: None Normal Head CT Within Last 12 Months: Yes Papilledema Present: No Temporal Artery Tenderness: Present: None Sinus Tenderness: Present: None TMJ Tenderness: Present: None Meningeal Signs Positive: No Pain on Passive Flexion-Positive Kernig's: No ROM Limited In: No Limitiations Focal Weakness: Present: None Focal Sensory Loss: Present: None Gait: Normal Nystagmus Present: No Gag Reflex Present: Yes [id number]: Normal Findings Romberg Test Positive: No Babinski Sign: Negative Right, Negative Left Differential Diagnoses: Migraine, Other Review of Systems - Review Of Systems Constitutional: Reports: No symptoms Eyes: Reports: No symptoms Ears, Nose, Mouth, Throat: Reports: No symptoms Respiratory: Reports: No symptoms Cardiac: Reports: No symptoms GI: Reports: No symptoms : Reports: No symptoms Musculoskeletal: Reports: No symptoms Skin: Reports: No symptoms Neurological: Reports: Headache Endocrine: Reports: No symptoms Hematologic/Lymphatic: Reports: No symptoms All Other Systems: Reviewed and Negative Past Medical History - Past Medical History Previously Healthy: Yes Endocrine: Reports: None Cardiovascular: Reports: Hypertension Respiratory: Reports: None Hematological: Reports: None Gastrointestinal: Reports: GERD Genitourinary: Reports: None Neuro/Psych: Reports: Migraine Musculoskeletal: Reports: None Cancer: Reports: None Last Menstrual Period: n/a Other Pertinent Past Medical History: HYPOGLYCEMIA - Surgical History General Surgical History: Reports: Hysterectomy ([id number]), Other (sinus surgery 06/07/16, Lumbar puncture 06/21/16 shunt to 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/06/2016) - Family History Family History: Reports: Unknown - Social History Smoking Status: Never smoker Hx Substance Use: No Alcohol Screening: None Physical Exam - Physical Exam Appearance: Well-appearing, No pain distress, Well-nourished Eyes: RUDOLPH, EOMI, Conjunctiva clear ENT: Ears normal, Nose normal, Oropharynx normal Respiratory: Airway patent, Breath sounds clear, Breath sounds equal, Respirations nonlabored Cardiovascular: RRR, Pulses normal, No rub, No murmur GI/: Soft, Nontender, No masses, Bowel sounds normal, No Organomegaly Musculoskeletal: Normal strength, ROM intact, No edema, No calf tenderness Skin: Warm, Dry, Normal color Neurological: Sensation intact, Motor intact, Reflexes intact, Cranial nerves intact, Alert, Oriented Psychiatric: Affect appropriate, Mood appropriate Critical Care Note - Critical Care Note Total Time (mins): 30 Course - Course Vital Signs: Temp Pulse Resp BP Pulse Ox 09/02/17 19:36 97.5 F L 85 16 128/90 98 Departure - Departure Time of Disposition: 19:50 Disposition: HOME SELF-CARE Discharge Problem: Headache Instructions: General Headache (ED) Condition: Stable Pt referred to PMD for follow-up: Yes IPMP verified?: No Additional Instructions: Rest Keep f/u with PMD in 2 days Allergies/Adverse Reactions: Allergies hydrocodone bitartrate [From Vicodin] Allergy (Severe, Verified 09/02/17 19:38) Vomiting azithromycin [From Zithromax] Adverse Reaction (Verified 09/02/17 19:38) Difficulty Swallowing clarithromycin [From Biaxin] Adverse Reaction (Verified 09/02/17 19:38) Vomiting ketorolac tromethamine [From Toradol] Adverse Reaction (Verified 09/02/17 19:38) Difficulty Swallowing propoxyphene napsylate [From Darvocet-N] Adverse Reaction (Verified 09/02/17 19: 38) Vomiting sumatriptan [From Imitrex] Adverse Reaction (Verified 09/02/17 19:38) Difficulty Swallowing sumatriptan succinate [From Imitrex] Adverse Reaction (Verified 09/02/17 19:38) Difficulty Swallowing Home Medications: Ambulatory Orders Promethazine HCl [Phenergan Tab] 25 mg PO QID PRN #12 tablet 05/04/15 Acetazolamide [Diamox] 500 mg PO Q12HR 06/24/16 Docusate Sodium [Colace] 100 mg PO BID PRN 09/25/16 Verapamil HCl 120 mg PO BEDTIME 12/09/16 Topiramate [Trokendi Xr] 200 mg PO d 01/21/17 Baclofen 20 mg PO BID tab-cap 03/13/17 Disposition Discussed With: Patient, Family
[2017-09-02] MEDS ORDERED: DEMEROL 50 MG/ML VIAL IM STA (19:48)
[2017-09-02] MEDS ORDERED: ZOFRAN 4 MG/2 ML IM STA (19:48)
== END 2017-09-02 20:27 | disposition home or self-care (01) ==
LOC: ED 19:35
DX: R51 Headache (principal)
CPT/HCPCS: 96372; 99282

== ENCOUNTER 2017-09-09 11:04 | Outpatient (CLI) | END 2017-09-09 11:05 | disposition home or self-care (01) | LOC: LAB 11:04 | PROVIDERS: ATTEND Emergency Medicine | DX: I10 Essential (primary) hypertension (principal); E66.9 Obesity, unspecified | CPT/HCPCS: 36415; 80053; 80061; 84443; 85025 ==

== ENCOUNTER 2017-09-14 19:06 | Emergency (ER) ==
[2017-09-14 19:11] VITALS: BP 123/79; TEMP 97; BMI 28.8
[2017-09-14] MEDS ORDERED: PHENERGAN 25 MG/ML VIAL IM STA (19:18)
[2017-09-14] MEDS ORDERED: DILAUDID 2 MG/ML SYRINGE IM STA (19:18)
--- NOTE | 2017-09-14 19:22 | ED.PDOC ---
General ED Provider: Dr. VÍCTOR CHAUDHRY-ER Chief Complaint: Headache Stated Complaint: ponce got a anshul cruz Time Seen by Physician: 19:20 Mode of Arrival: Walk-In Information Source: Patient Exam Limitations: No limitations Primary Care Provider[facility] Nursing and Triage Documentation Reviewed and Agree: Yes Does patient meet sepsis criteria?: No System Inflammatory Response Syndrome: Not Applicable Sepsis Protocol: For patient's 13 years and over: Temp is 96.8 and below OR 101 and greater Pulse >90 BPM Resp >20/minute Acutely Altered Mental Status Are patient's symptoms suggestive of a new infection, such as: -Pneumonia -Skin, Soft Tissue -Endocarditis -UTI -Bone, Joint Infection -Implantable Device -Acute Abdominal Infection -Wound Infection -Meningitis -Blood Stream Catheter Infection -Unknown Neurological Complaint Exam - Headache Complaint/Exam Onset: Gradual Duration: several hours Symptoms Are: Still present Timing: Constant Worst Headache Ever: No Initial Severity: Mild Current Severity: Moderate Location: Diffuse Character: Reports: Dull, Throbbing, Typical headache, Migraine Aggravating: Reports: Bright lights Alleviating: Reports: None Associated Signs and Symptoms: Reports: Nausea. Denies: Dizziness, Seizure, Vomiting, Sinus pressure, Fever, Neck pain, Neck stiffness, Decreased LOC, Visual changes Related History: Reports: Similar episode ("just like my other migraine cruz--no different") Related Surgical History: Reports: None Temporal Arteritis Risk Factors: Reports: Female Normal Head CT Within Last 12 Months: Yes Fundoscopic Exam: Present: Normal Findings Papilledema Present: No Temporal Artery Tenderness: Present: None Sinus Tenderness: Present: None TMJ Tenderness: Present: None Glascow Coma Scale (see protocol): 15 Meningeal Signs Positive: No Pain on Passive Flexion-Positive Kernig's: No ROM Limited In: No Limitiations Focal Weakness: Present: None Focal Sensory Loss: Present: None Gait: Normal Nystagmus Present: No Gag Reflex Present: Yes [id number]: Normal Findings Romberg Test Positive: No Babinski Sign: Negative Right, Negative Left Heel to Toe Normal: Yes Differential Diagnoses: Migraine Review of Systems - Review Of Systems Constitutional: Reports: No symptoms Eyes: Reports: No symptoms Ears, Nose, Mouth, Throat: Reports: No symptoms Respiratory: Reports: No symptoms Cardiac: Reports: No symptoms GI: Reports: Nausea : Reports: No symptoms Musculoskeletal: Reports: No symptoms Skin: Reports: No symptoms Neurological: Reports: Headache Endocrine: Reports: No symptoms Hematologic/Lymphatic: Reports: No symptoms All Other Systems: Reviewed and Negative Past Medical History - Past Medical History Previously Healthy: Yes Endocrine: Reports: None Cardiovascular: Reports: Hypertension Respiratory: Reports: None Hematological: Reports: None Gastrointestinal: Reports: GERD Genitourinary: Reports: None Neuro/Psych: Reports: Migraine Musculoskeletal: Reports: None Cancer: Reports: None Last Menstrual Period: na Other Pertinent Past Medical History: HYPOGLYCEMIA - Surgical History General Surgical History: Reports: Hysterectomy ([id number]), Other (sinus surgery 06/07/16, Lumbar puncture 06/21/16 shunt to 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/06/2016) - Family History Family History: Reports: Unknown - Social History Smoking Status: Never smoker Hx Substance Use: No Alcohol Screening: None - Immunizations Tetanus Shot up to Date: Yes Physical Exam - Physical Exam Appearance: Well-appearing Pain Distress: Moderate Eyes: RUDOLPH, EOMI, Conjunctiva clear ENT: Ears normal, Nose normal, Oropharynx normal Neck: Supple Respiratory: Airway patent, Breath sounds clear, Breath sounds equal, Respirations nonlabored Cardiovascular: RRR GI/: Soft, Nontender, No masses, Bowel sounds normal, No Organomegaly Musculoskeletal: Normal strength, ROM intact, No edema, No calf tenderness Skin: Warm, Dry, Normal color Neurological: Sensation intact, Motor intact, Reflexes intact, Cranial nerves intact, Alert, Oriented Psychiatric: Affect appropriate, Mood appropriate Re-Evaluation - Re-Evaluation Time of Re-Evaluation: 20:00 Status: Improved Vital Signs Stable: Yes Pain Level: 1 Appearance: NAD Lungs: Clear Skin: Warm and Dry Neuro: Alert and Oriented X3 CV: RRR Critical Care Note - Critical Care Note Total Time (mins): 0 Course - Course Orders, Labs, Meds: Orders Category Date Time Status Hydromorphone HCl/Pf [Dilaudid 2 mg/ml Syringe] MEDS 09/14/17 19:18 Stat 2 mg IM ONCE STA Promethazine HCl [Phenergan 25 mg/ml Vial] MEDS 09/14/17 19:18 Stat 25 mg IM ONCE STA Medications Generic Name Dose Route Start Last Admin Trade Name Freq PRN Reason Stop Dose Admin Hydromorphone HCl 2 mg 09/14/17 19:18 Dilaudid 2 Mg/Ml Syringe IM 09/14/17 19:19 ONCE STA Promethazine HCl 25 mg 09/14/17 19:18 Phenergan 25 Mg/Ml Vial IM 09/14/17 19:19 ONCE STA Vital Signs: Temp Pulse Resp BP Pulse Ox 09/14/17 19:07 97 F L 98 H 20 123/79 97 Departure - Departure Time of Disposition: 19:22 Disposition: HOME SELF-CARE Discharge Problem: Migraine Qualifiers: Migraine type: unspecified Status migrainosus presence: without status migrainosus Intractability: not intractable Qualified Code(s): G43.909 - Migraine, unspecified, not intractable, without status migrainosus Instructions: Migraine Headache (ED) Condition: Good Pt referred to PMD for follow-up: Yes IPMP verified?: No Additional Instructions: f/u pcp Allergies/Adverse Reactions: Allergies hydrocodone bitartrate [From Vicodin] Allergy (Severe, Verified 09/14/17 19:12) Vomiting azithromycin [From Zithromax] Adverse Reaction (Verified 09/14/17 19:12) Difficulty Swallowing clarithromycin [From Biaxin] Adverse Reaction (Verified 09/14/17 19:12) Vomiting ketorolac tromethamine [From Toradol] Adverse Reaction (Verified 09/14/17 19:12) Difficulty Swallowing propoxyphene napsylate [From Darvocet-N] Adverse Reaction (Verified 09/14/17 19: 12) Vomiting sumatriptan [From Imitrex] Adverse Reaction (Verified 09/14/17 19:12) Difficulty Swallowing sumatriptan succinate [From Imitrex] Adverse Reaction (Verified 09/14/17 19:12) Difficulty Swallowing Home Medications: Ambulatory Orders Promethazine HCl [Phenergan Tab] 25 mg PO QID PRN #12 tablet 05/04/15 Acetazolamide [Diamox] 500 mg PO Q12HR 06/24/16 Docusate Sodium [Colace] 100 mg PO BID PRN 09/25/16 Verapamil HCl 120 mg PO BEDTIME 12/09/16 Topiramate [Trokendi Xr] 200 mg PO d 01/21/17 Baclofen 20 mg PO BID tab-cap 03/13/17 Disposition Discussed With: Patient
== END 2017-09-14 20:25 | disposition home or self-care (01) ==
LOC: ED 19:06
DX: G43.909 Migraine, unspecified, not intractable, without status migrainosus (principal)
CPT/HCPCS: 96372; 99283

== ENCOUNTER 2017-10-17 12:05 | Outpatient (CLI) | END 2017-10-17 12:06 | disposition home or self-care (01) | LOC: RHC-LAB 12:05 | PROVIDERS: ATTEND Emergency Medicine | DX: I10 Essential (primary) hypertension (principal) | CPT/HCPCS: 36415; 80053 ==

== ENCOUNTER 2017-10-20 20:42 | Emergency (ER) ==
[2017-10-20 20:45] VITALS: BP 131/85; TEMP 96.9; BMI 28.3
[2017-10-20] MEDS ORDERED: DEMEROL 100 MG/ML SYRINGE IM STA (20:51)
[2017-10-20] MEDS ORDERED: PHENERGAN 25 MG/ML VIAL IM STA (20:52)
--- NOTE | 2017-10-20 20:55 | ED.PDOC ---
General ED Provider: Dr. VÍCTOR CHAUDHRY-ER Chief Complaint: Headache Stated Complaint: ponce got a migraine Time Seen by Physician: 20:53 Mode of Arrival: Walk-In Information Source: Patient Exam Limitations: No limitations [facility] and Triage Documentation Reviewed and Agree: Yes Does patient meet sepsis criteria?: No System Inflammatory Response Syndrome: Not Applicable Sepsis Protocol: For patient's 13 years and over: Temp is 96.8 and below OR 101 and greater Pulse >90 BPM Resp >20/minute Acutely Altered Mental Status Are patient's symptoms suggestive of a new infection, such as: -Pneumonia -Skin, Soft Tissue -Endocarditis -UTI -Bone, Joint Infection -Implantable Device -Acute Abdominal Infection -Wound Infection -Meningitis -Blood Stream Catheter Infection -Unknown Neurological Complaint Exam - Headache Complaint/Exam Onset: Gradual Duration: several hours Symptoms Are: Still present Timing: Constant Worst Headache Ever: No Current Severity: None Location: Diffuse Character: Reports: Dull, Throbbing, Typical headache, Migraine Aggravating: Reports: Bright lights Alleviating: Reports: None Associated Signs and Symptoms: Reports: Nausea Related Surgical History: Reports: None SAH Risk Factors: Reports: None Meningitis Risk Factors: Reports: None SDH Risk Factors: Reports: None Temporal Arteritis Risk Factors: Reports: Female Normal Head CT Within Last 12 Months: No Fundoscopic Exam: Present: Normal Findings Papilledema Present: No Temporal Artery Tenderness: Present: None Sinus Tenderness: Present: None TMJ Tenderness: Present: None Glascow Coma Scale (see protocol): 15 Meningeal Signs Positive: No Pain on Passive Flexion-Positive Kernig's: No ROM Limited In: No Limitiations Focal Weakness: Present: None Focal Sensory Loss: Present: None Gait: Normal Nystagmus Present: No Gag Reflex Present: No [id number]: Normal Findings Babinski Sign: Negative Right, Negative Left Heel to Toe Normal: No Differential Diagnoses: Migraine Review of Systems - Review Of Systems Constitutional: Reports: No symptoms Eyes: Reports: No symptoms Ears, Nose, Mouth, Throat: Reports: No symptoms Respiratory: Reports: No symptoms Cardiac: Reports: No symptoms GI: Reports: Nausea : Reports: No symptoms Musculoskeletal: Reports: No symptoms Skin: Reports: No symptoms Neurological: Reports: Headache Endocrine: Reports: No symptoms Hematologic/Lymphatic: Reports: No symptoms All Other Systems: Reviewed and Negative Past Medical History - Past Medical History Previously Healthy: Yes Endocrine: Reports: None Cardiovascular: Reports: Hypertension Respiratory: Reports: None Hematological: Reports: None Gastrointestinal: Reports: GERD Genitourinary: Reports: None Neuro/Psych: Reports: Migraine Musculoskeletal: Reports: None Cancer: Reports: None Last Menstrual Period: HYSTERECTOMY Other Pertinent Past Medical History: HYPOGLYCEMIA - Surgical History General Surgical History: Reports: Hysterectomy ([id number]), Other (sinus surgery 06/07/16, Lumbar puncture 06/21/16 shunt to brain 09/06/2016) - Family History Family History: Reports: Unknown - Social History Smoking Status: Never smoker Hx Substance Use: No Alcohol Screening: None - Immunizations Tetanus Shot up to Date: Yes Physical Exam - Physical Exam Appearance: Well-appearing, No pain distress, Well-nourished Eyes: RUDOLPH, EOMI, Conjunctiva clear ENT: Ears normal, Nose normal, Oropharynx normal Neck: Supple Respiratory: Airway patent, Breath sounds clear, Breath sounds equal, Respirations nonlabored Cardiovascular: RRR, Pulses normal, No rub, No murmur GI/: Soft Musculoskeletal: Normal strength, ROM intact, No edema, No calf tenderness Skin: Warm, Dry, Normal color Neurological: Sensation intact, Alert, Oriented Psychiatric: Affect appropriate, Mood appropriate Re-Evaluation - Re-Evaluation Time of Re-Evaluation: 21:30 Status: Improved Vital Signs Stable: Yes Pain Level: 1 Appearance: NAD Lungs: Clear Skin: Warm and Dry Neuro: Alert and Oriented X3 CV: RRR Critical Care Note - Critical Care Note Total Time (mins): 0 Course - Course Orders, Labs, Meds: Orders Category Date Time Status Meperidine HCl/Pf [Demerol 100 mg/ml Syringe] MEDS 10/20/17 20:51 Discontinued 50 mg IM ONCE STA Promethazine HCl [Phenergan 25 mg/ml Vial] MEDS 10/20/17 20:52 Discontinued 25 mg IM ONCE STA Medications Discontinued Medications Generic Name Dose Route Start Last Admin Trade Name Freq PRN Reason Stop Dose Admin Meperidine HCl 50 mg 10/20/17 20:51 Demerol 100 Mg/Ml Syringe IM 10/20/17 20:52 ONCE STA Promethazine HCl 25 mg 10/20/17 20:52 Phenergan 25 Mg/Ml Vial IM 10/20/17 20:53 ONCE STA Vital Signs: Temp Pulse Resp BP Pulse Ox 10/20/17 20:42 96.9 F L 108 H 20 131/85 98 Departure - Departure Time of Disposition: 20:56 Disposition: HOME SELF-CARE Discharge Problem: Migraine Qualifiers: Migraine type: unspecified Status migrainosus presence: without status migrainosus Intractability: not intractable Qualified Code(s): G43.909 - Migraine, unspecified, not intractable, without status migrainosus Instructions: Migraine Headache (ED) Condition: Good Pt referred to PMD for follow-up: Yes IPMP verified?: No Allergies/Adverse Reactions: Allergies hydrocodone bitartrate [From Vicodin] Allergy (Severe, Verified 10/20/17 20:46) Vomiting azithromycin [From Zithromax] Adverse Reaction (Verified 10/20/17 20:46) Difficulty Swallowing clarithromycin [From Biaxin] Adverse Reaction (Verified 10/20/17 20:46) Vomiting ketorolac tromethamine [From Toradol] Adverse Reaction (Verified 10/20/17 20:46) Difficulty Swallowing propoxyphene napsylate [From Darvocet-N] Adverse Reaction (Verified 10/20/17 20: 46) Vomiting sumatriptan [From Imitrex] Adverse Reaction (Verified 10/20/17 20:46) Difficulty Swallowing sumatriptan succinate [From Imitrex] Adverse Reaction (Verified 10/20/17 20:46) Difficulty Swallowing Home Medications: Ambulatory Orders Promethazine HCl [Phenergan Tab] 25 mg PO QID PRN #12 tablet 05/04/15 Acetazolamide [Diamox] 500 mg PO Q12HR 06/24/16 Docusate Sodium [Colace] 100 mg PO BID PRN 09/25/16 Verapamil HCl 120 mg PO BEDTIME 12/09/16 Topiramate [Trokendi Xr] 200 mg PO d 01/21/17 Baclofen 20 mg PO BID tab-cap 03/13/17 Disposition Discussed With: Patient
[2017-10-20] MEDS ORDERED: DEMEROL 50 MG/ML SYRINGE ONE (21:21)
== END 2017-10-20 21:50 | disposition home or self-care (01) ==
LOC: ED 20:42
DX: G43.909 Migraine, unspecified, not intractable, without status migrainosus (principal)
CPT/HCPCS: 96372; 99283

== ENCOUNTER 2017-11-17 19:03 | Emergency (ER) ==
[2017-11-17 19:12] VITALS: BP 129/84; TEMP 97.1; BMI 28.8
[2017-11-17] MEDS ORDERED: DILAUDID 2 MG/ML SDV IM STA (19:20)
[2017-11-17] MEDS ORDERED: PHENERGAN 25 MG/ML VIAL IM STA (19:20)
--- NOTE | 2017-11-17 19:23 | ED.PDOC ---
General ED Provider: Dr. VÍCTOR CHAUDHRY-ER Chief Complaint: Headache Stated Complaint: ponce got a migraine Time Seen by Physician: 19:15 Mode of Arrival: Walk-In Information Source: Patient Exam Limitations: No limitations Primary Care Provider: HEAVENLY NELSON Nursing and Triage Documentation Reviewed and Agree: Yes Does patient meet sepsis criteria?: No System Inflammatory Response Syndrome: Not Applicable Sepsis Protocol: For patient's 13 years and over: Temp is 96.8 and below OR 101 and greater Pulse >90 BPM Resp >20/minute Acutely Altered Mental Status Are patient's symptoms suggestive of a new infection, such as: -Pneumonia -Skin, Soft Tissue -Endocarditis -UTI -Bone, Joint Infection -Implantable Device -Acute Abdominal Infection -Wound Infection -Meningitis -Blood Stream Catheter Infection -Unknown Neurological Complaint Exam - Headache Complaint/Exam Onset: Gradual Duration: several hours Symptoms Are: Still present Timing: Constant Worst Headache Ever: Yes Initial Severity: Moderate Current Severity: Moderate Location: Diffuse Character: Reports: Dull, Throbbing, Pressure, Typical headache, Migraine Aggravating: Reports: Bright lights Alleviating: Reports: None Associated Signs and Symptoms: Reports: Nausea. Denies: Dizziness, Seizure Related History: Reports: Similar episode Related Surgical History: Reports: None SAH Risk Factors: Reports: None Meningitis Risk Factors: Reports: None SDH Risk Factors: Reports: None Temporal Arteritis Risk Factors: Reports: Female Normal Head CT Within Last 12 Months: No Fundoscopic Exam: Present: Normal Findings Papilledema Present: No Temporal Artery Tenderness: Present: None Sinus Tenderness: Present: None TMJ Tenderness: Present: None Glascow Coma Scale (see protocol): 15 Meningeal Signs Positive: No Pain on Passive Flexion-Positive Kernig's: Yes ROM Limited In: No Limitiations Focal Weakness: Present: None Focal Sensory Loss: Present: None Gait: Normal Nystagmus Present: No Gag Reflex Present: No [id number]: Normal Findings Romberg Test Positive: No Babinski Sign: Negative Right, Negative Left Heel to Toe Normal: Yes Differential Diagnoses: Migraine Review of Systems - Review Of Systems Constitutional: Reports: No symptoms Eyes: Reports: No symptoms Ears, Nose, Mouth, Throat: Reports: No symptoms Respiratory: Reports: No symptoms Cardiac: Reports: No symptoms GI: Reports: Nausea : Reports: No symptoms Musculoskeletal: Reports: No symptoms Skin: Reports: No symptoms Neurological: Reports: Headache Endocrine: Reports: No symptoms Hematologic/Lymphatic: Reports: No symptoms All Other Systems: Reviewed and Negative Past Medical History - Past Medical History Previously Healthy: Yes Endocrine: Reports: None Cardiovascular: Reports: Hypertension Respiratory: Reports: None Hematological: Reports: None Gastrointestinal: Reports: GERD Genitourinary: Reports: None Neuro/Psych: Reports: Migraine Musculoskeletal: Reports: None Cancer: Reports: None Last Menstrual Period: HYSTERECTOMY Other Pertinent Past Medical History: HYPOGLYCEMIA - Surgical History General Surgical History: Reports: Hysterectomy ([id number]), Other (sinus surgery 06/07/16, Lumbar puncture 06/21/16 shunt to brain 09/06/2016) - Family History Family History: Reports: Unknown - Social History Smoking Status: Never smoker Hx Substance Use: No Alcohol Screening: None - Immunizations Tetanus Shot up to Date: Yes Physical Exam - Physical Exam Appearance: Well-appearing, No pain distress, Well-nourished Pain Distress: Moderate Eyes: RUDOLPH, EOMI, Conjunctiva clear ENT: Ears normal, Nose normal, Oropharynx normal Neck: Supple Respiratory: Airway patent Cardiovascular: RRR, Pulses normal, No rub, No murmur GI/: Soft, Nontender, No masses, Bowel sounds normal, No Organomegaly Musculoskeletal: Normal strength, ROM intact, No edema, No calf tenderness Skin: Warm, Dry, Normal color Neurological: Alert, Oriented Psychiatric: Affect appropriate, Mood appropriate Re-Evaluation - Re-Evaluation Time of Re-Evaluation: 19:45 Status: Improved Vital Signs Stable: Yes Pain Level: 2 Appearance: NAD Lungs: Clear Skin: Warm and Dry Neuro: Alert and Oriented X3 CV: RRR Critical Care Note - Critical Care Note Total Time (mins): 0 Course - Course Orders, Labs, Meds: Orders Category Date Time Status Hydromorphone HCl [Dilaudid 2 mg/ml Sdv] MEDS 11/17/17 19:20 Discontinued 2 mg IM ONCE STA Promethazine HCl [Phenergan 25 mg/ml Vial] MEDS 11/17/17 19:20 Discontinued 25 mg IM ONCE STA Medications Discontinued Medications Generic Name Dose Route Start Last Admin Trade Name Freq PRN Reason Stop Dose Admin Hydromorphone HCl 2 mg 11/17/17 19:20 Dilaudid 2 Mg/Ml Sdv IM 11/17/17 19:21 ONCE STA Promethazine HCl 25 mg 11/17/17 19:20 Phenergan 25 Mg/Ml Vial IM 11/17/17 19:21 ONCE STA Vital Signs: Temp Pulse Resp BP Pulse Ox 11/17/17 19:04 97.1 F L 85 20 129/84 99 Departure - Departure Time of Disposition: 19:24 Disposition: HOME SELF-CARE Discharge Problem: Migraine headache Qualifiers: Migraine type: unspecified Status migrainosus presence: without status migrainosus Intractability: not intractable Qualified Code(s): G43.909 - Migraine, unspecified, not intractable, without status migrainosus Instructions: Migraine Headache (ED) Condition: Good Pt referred to PMD for follow-up: No IPMP verified?: No Additional Instructions: f/u with pcp Allergies/Adverse Reactions: Allergies hydrocodone bitartrate [From Vicodin] Allergy (Severe, Verified 11/17/17 19:07) Vomiting azithromycin [From Zithromax] Adverse Reaction (Verified 11/17/17 19:07) Difficulty Swallowing clarithromycin [From Biaxin] Adverse Reaction (Verified 11/17/17 19:07) Vomiting ketorolac tromethamine [From Toradol] Adverse Reaction (Verified 11/17/17 19:07) Difficulty Swallowing propoxyphene napsylate [From Darvocet-N] Adverse Reaction (Verified 11/17/17 19: 07) Vomiting sumatriptan [From Imitrex] Adverse Reaction (Verified 11/17/17 19:07) Difficulty Swallowing sumatriptan succinate [From Imitrex] Adverse Reaction (Verified 11/17/17 19:07) Difficulty Swallowing Home Medications: Ambulatory Orders Promethazine HCl [Phenergan Tab] 25 mg PO QID PRN #12 tablet 05/04/15 Acetazolamide [Diamox] 500 mg PO Q12HR 06/24/16 Docusate Sodium [Colace] 100 mg PO BID PRN 09/25/16 Verapamil HCl 120 mg PO BEDTIME 12/09/16 Topiramate [Trokendi Xr] 200 mg PO d 01/21/17 Baclofen 20 mg PO BID tab-cap 03/13/17 Disposition Discussed With: Patient
== END 2017-11-17 19:49 | disposition home or self-care (01) ==
LOC: ED 19:03
DX: G43.909 Migraine, unspecified, not intractable, without status migrainosus (principal)
CPT/HCPCS: 96372; 99283

== ENCOUNTER 2017-12-11 21:45 | Emergency (ER) ==
[2017-12-11] MEDS ORDERED: ZOFRAN 4 MG/2 ML IM STA (21:51)
[2017-12-11] MEDS ORDERED: DILAUDID 2 MG/ML SDV IM STA (21:51)
[2017-12-11 21:53] VITALS: BP 150/93; TEMP 97.5; BMI 29.9
[2017-12-11] MEDS ORDERED: DILAUDID 1 MG/ML SYRINGE ONE (21:56)
--- NOTE | 2017-12-11 22:40 | ED.PDOC ---
General ED Provider: Dr. VÍCTOR CHAUDHRY-ER Chief Complaint: Headache Stated Complaint: ponce got a migraine Time Seen by Physician: 21:50 Mode of Arrival: Walk-In Information Source: Patient, Assisted Living Primary Care Provider: HEAVENLY NELSON Nursing and Triage Documentation Reviewed and Agree: Yes Does patient meet sepsis criteria?: No System Inflammatory Response Syndrome: Not Applicable Sepsis Protocol: For patient's 13 years and over: Temp is 96.8 and below OR 101 and greater Pulse >90 BPM Resp >20/minute Acutely Altered Mental Status Are patient's symptoms suggestive of a new infection, such as: -Pneumonia -Skin, Soft Tissue -Endocarditis -UTI -Bone, Joint Infection -Implantable Device -Acute Abdominal Infection -Wound Infection -Meningitis -Blood Stream Catheter Infection -Unknown Neurological Complaint Exam - Headache Complaint/Exam Onset: Gradual Duration: several hours Symptoms Are: Still present Timing: Constant Worst Headache Ever: No Initial Severity: Mild Current Severity: Moderate Location: Diffuse Character: Reports: Dull, Throbbing, Pressure, Typical headache, Migraine Alleviating: Reports: Position change Associated Signs and Symptoms: Reports: Nausea, Vomiting Related Surgical History: Reports: None SAH Risk Factors: Reports: None Meningitis Risk Factors: Reports: None SDH Risk Factors: Reports: None Temporal Arteritis Risk Factors: Reports: Female Normal Head CT Within Last 12 Months: Yes Fundoscopic Exam: Present: Normal Findings Papilledema Present: No Temporal Artery Tenderness: Present: None Sinus Tenderness: Present: None TMJ Tenderness: Present: None Glascow Coma Scale (see protocol): 15 Meningeal Signs Positive: No Pain on Passive Flexion-Positive Kernig's: No ROM Limited In: No Limitiations Focal Weakness: Present: None Focal Sensory Loss: Present: None Gait: Normal Nystagmus Present: No Gag Reflex Present: Yes [id number]: Normal Findings Babinski Sign: Negative Right, Negative Left Heel to Toe Normal: No Differential Diagnoses: Migraine Review of Systems - Review Of Systems Constitutional: Reports: No symptoms Eyes: Reports: No symptoms Ears, Nose, Mouth, Throat: Reports: No symptoms Respiratory: Reports: No symptoms Cardiac: Reports: No symptoms GI: Reports: Nausea : Reports: No symptoms Musculoskeletal: Reports: No symptoms Skin: Reports: No symptoms Neurological: Reports: Headache Endocrine: Reports: No symptoms Hematologic/Lymphatic: Reports: No symptoms All Other Systems: Reviewed and Negative Past Medical History - Past Medical History Previously Healthy: Yes Endocrine: Reports: None Cardiovascular: Reports: Hypertension Respiratory: Reports: None Hematological: Reports: None Gastrointestinal: Reports: GERD Genitourinary: Reports: None Neuro/Psych: Reports: Migraine Musculoskeletal: Reports: None Cancer: Reports: None Last Menstrual Period: PT HAS HAD A HYSTERECTOMY Other Pertinent Past Medical History: HYPOGLYCEMIA - Surgical History General Surgical History: Reports: Hysterectomy ([id number]), Other (sinus surgery 06/07/16, Lumbar puncture 06/21/16 shunt to brain 09/06/2016) - Family History Family History: Reports: Unknown - Social History Smoking Status: Former smoker Hx Substance Use: No Alcohol Screening: None - Immunizations Tetanus Shot up to Date: Yes Physical Exam - Physical Exam Appearance: Well-appearing, No pain distress, Well-nourished Pain Distress: Moderate Eyes: RUDOLPH ENT: Ears normal, Nose normal, Oropharynx normal Neck: Supple Respiratory: Airway patent, Crackles Cardiovascular: RRR, Pulses normal, No rub, No murmur GI/: Soft, Nontender, No masses, Bowel sounds normal, No Organomegaly Musculoskeletal: Normal strength Skin: Warm, Dry, Normal color Neurological: Sensation intact, Motor intact, Reflexes intact, Cranial nerves intact, Alert, Oriented Psychiatric: Affect appropriate, Mood appropriate Re-Evaluation - Re-Evaluation Time of Re-Evaluation: 22:40 Status: Improved Vital Signs Stable: Yes Pain Level: 1 Appearance: NAD Lungs: Clear Skin: Warm and Dry Neuro: Alert and Oriented X3 CV: RRR Critical Care Note - Critical Care Note Total Time (mins): 0 Course - Course Orders, Labs, Meds: Orders Category Date Time Status Hydromorphone HCl [Dilaudid 1 mg/ml Syringe] MEDS 12/11/17 21:56 Discontinued 2 mg .ROUTE .STK-MED ONE Hydromorphone HCl [Dilaudid 2 mg/ml Sdv] MEDS 12/11/17 21:51 Discontinued 2 mg IM ONCE STA Ondansetron HCl/Pf [Zofran 4 mg/2 ml] MEDS 12/11/17 21:51 Discontinued 4 mg IM ONCE STA Medications Discontinued Medications Generic Name Dose Route Start Last Admin Trade Name Freq PRN Reason Stop Dose Admin Hydromorphone HCl 2 mg 12/11/17 21:51 12/11/17 22:04 Dilaudid 2 Mg/Ml Sdv IM 12/11/17 21:52 Not Given ONCE STA Ondansetron HCl 4 mg 12/11/17 21:51 12/11/17 22:04 Zofran 4 Mg/2 Ml IM 12/11/17 21:52 4 mg ONCE STA Administration Vital Signs: Temp Pulse Resp BP Pulse Ox 12/11/17 21:46 97.5 F L 84 18 150/93 H 98 Departure - Departure Time of Disposition: 22:41 Disposition: HOME SELF-CARE Discharge Problem: Migraine headache Qualifiers: Migraine type: other Status migrainosus presence: without status migrainosus Intractability: not intractable Qualified Code(s): G43.809 - Other migraine, not intractable, without status migrainosus Instructions: Migraine Headache (ED) Condition: Good Pt referred to PMD for follow-up: No IPMP verified?: No Additional Instructions: f/u with pcp Allergies/Adverse Reactions: Allergies azithromycin [From Zithromax] Adverse Reaction (Verified 12/11/17 21:53) Difficulty Swallowing clarithromycin [From Biaxin] Adverse Reaction (Verified 12/11/17 21:53) Vomiting ketorolac tromethamine [From Toradol] Adverse Reaction (Verified 12/11/17 21:53) Difficulty Swallowing propoxyphene napsylate [From Darvocet-N] Adverse Reaction (Verified 12/11/17 21: 53) Vomiting sumatriptan [From Imitrex] Adverse Reaction (Verified 12/11/17 21:53) Difficulty Swallowing sumatriptan succinate [From Imitrex] Adverse Reaction (Verified 12/11/17 21:53) Difficulty Swallowing Home Medications: Ambulatory Orders Promethazine HCl [Phenergan Tab] 25 mg PO QID PRN #12 tablet 05/04/15 Acetazolamide [Diamox] 500 mg PO Q12HR 06/24/16 Docusate Sodium [Colace] 100 mg PO BID PRN 09/25/16 Verapamil HCl 120 mg PO BEDTIME 12/09/16 Topiramate [Trokendi Xr] 200 mg PO d 01/21/17 Baclofen 20 mg PO BID tab-cap 03/13/17 Butalbital/Aspirin/Caffeine [Fiorinal 50-325-40 mg Capsule] 1 each PO BID PRN Hydrocodone Bit/Acetaminophen [[place] 5-325] 1 tab PO BID PRN 12/11/17 Transfer Form Completed: No Disposition Discussed With: Patient
== END 2017-12-11 22:47 | disposition home or self-care (01) ==
LOC: ED 21:45
DX: G43.809 Other migraine, not intractable, without status migrainosus (principal)
CPT/HCPCS: 96372; 99282

== ENCOUNTER 2018-01-05 18:33 | Emergency (ER) ==
[2018-01-05 18:33] VITALS: BMI 28.8
[2018-01-05] MEDS ORDERED: PHENERGAN 25 MG/ML VIAL IM STA (18:41)
[2018-01-05] MEDS ORDERED: STADOL IM STA (18:41)
[2018-01-05 18:42] VITALS: BP 141/88; TEMP 98.2
--- NOTE | 2018-01-05 18:44 | ED.PDOC ---
General ED Provider: Dr. VÍCTOR CHAUDHRY-ER Chief Complaint: Headache Stated Complaint: ponce got a migraine Time Seen by Physician: 18:42 Mode of Arrival: Walk-In Information Source: Patient Exam Limitations: No limitations Primary Care Provider: HEAVENLY NELSON Nursing and Triage Documentation Reviewed and Agree: Yes Does patient meet sepsis criteria?: No System Inflammatory Response Syndrome: Not Applicable Sepsis Protocol: For patient's 13 years and over: Temp is 96.8 and below OR 101 and greater Pulse >90 BPM Resp >20/minute Acutely Altered Mental Status Are patient's symptoms suggestive of a new infection, such as: -Pneumonia -Skin, Soft Tissue -Endocarditis -UTI -Bone, Joint Infection -Implantable Device -Acute Abdominal Infection -Wound Infection -Meningitis -Blood Stream Catheter Infection -Unknown Neurological Complaint Exam - Headache Complaint/Exam Onset: Gradual Duration: several hours Symptoms Are: Still present Timing: Constant Worst Headache Ever: No Initial Severity: Mild Current Severity: Moderate Location: Diffuse Character: Reports: Dull, Throbbing, Typical headache, Migraine Aggravating: Reports: Bright lights Associated Signs and Symptoms: Reports: Nausea Related History: Reports: Similar episode. Denies: Recent trauma, Remote trauma Temporal Arteritis Risk Factors: Reports: Female Normal Head CT Within Last 12 Months: Yes Fundoscopic Exam: Present: Normal Findings Papilledema Present: No Temporal Artery Tenderness: Present: None Sinus Tenderness: Present: None TMJ Tenderness: Present: None Glascow Coma Scale (see protocol): 15 Meningeal Signs Positive: No ROM Limited In: No Limitiations Focal Weakness: Present: None Focal Sensory Loss: Present: None Gait: Normal Nystagmus Present: No Gag Reflex Present: Yes [id number]: Normal Findings Romberg Test Positive: No Babinski Sign: Negative Right, Negative Left Heel to Toe Normal: Yes Differential Diagnoses: Migraine Review of Systems - Review Of Systems Constitutional: Reports: No symptoms Eyes: Reports: No symptoms Ears, Nose, Mouth, Throat: Reports: No symptoms Respiratory: Reports: No symptoms Cardiac: Reports: No symptoms GI: Reports: Nausea : Reports: No symptoms Musculoskeletal: Reports: No symptoms Skin: Reports: No symptoms Neurological: Reports: Headache Endocrine: Reports: No symptoms Hematologic/Lymphatic: Reports: No symptoms All Other Systems: Reviewed and Negative Past Medical History - Past Medical History Previously Healthy: Yes Endocrine: Reports: None Cardiovascular: Reports: Hypertension Respiratory: Reports: None Hematological: Reports: None Gastrointestinal: Reports: GERD Genitourinary: Reports: None Neuro/Psych: Reports: Migraine Musculoskeletal: Reports: None Cancer: Reports: None Last Menstrual Period: hysterectomy Other Pertinent Past Medical History: HYPOGLYCEMIA - Surgical History General Surgical History: Reports: Hysterectomy ([id number]), Other (sinus surgery 06/07/16, Lumbar puncture 06/21/16 shunt to brain 09/06/2016) - Family History Family History: Reports: Unknown - Social History Smoking Status: Never smoker Hx Substance Use: No Alcohol Screening: None Physical Exam - Physical Exam Appearance: Well-appearing Pain Distress: Moderate Eyes: RUDOLPH, EOMI, Conjunctiva clear ENT: Ears normal, Nose normal, Oropharynx normal Neck: Supple Respiratory: Airway patent, Breath sounds clear, Breath sounds equal, Respirations nonlabored Cardiovascular: RRR, Pulses normal, No rub, No murmur GI/: Soft Musculoskeletal: Normal strength, ROM intact, No edema, No calf tenderness Skin: Warm, Dry, Normal color Neurological: Sensation intact, Motor intact, Reflexes intact, Cranial nerves intact, Alert, Oriented Psychiatric: Affect appropriate, Mood appropriate Re-Evaluation - Re-Evaluation Time of Re-Evaluation: 19:05 Status: Improved Vital Signs Stable: Yes Pain Level: 1 Appearance: NAD (1) Lungs: Clear Skin: Warm and Dry Neuro: Alert and Oriented X3 CV: RRR Critical Care Note - Critical Care Note Total Time (mins): 0 Course - Course Orders, Labs, Meds: Orders Category Date Time Status Butorphanol Tartrate [Stadol] MEDS 01/05/18 18:41 Discontinued 2 mg IM ONCE STA Promethazine HCl [Phenergan 25 mg/ml Vial] MEDS 01/05/18 18:41 Discontinued 25 mg IM ONCE STA Medications Discontinued Medications Generic Name Dose Route Start Last Admin Trade Name Freq PRN Reason Stop Dose Admin Butorphanol Tartrate 2 mg 01/05/18 18:41 01/05/18 18:54 Stadol IM 01/05/18 18:42 2 mg ONCE STA Administration Promethazine HCl 25 mg 01/05/18 18:41 01/05/18 18:55 Phenergan 25 Mg/Ml Vial IM 01/05/18 18:42 25 mg ONCE STA Administration Vital Signs: Temp Pulse Resp BP Pulse Ox 11/05/18 18:34 98.2 F 78 20 141/88 H 99 Departure - Departure Time of Disposition: 18:44 Disposition: HOME SELF-CARE Discharge Problem: Migraine headache Qualifiers: Migraine type: unspecified Status migrainosus presence: without status migrainosus Intractability: not intractable Qualified Code(s): G43.909 - Migraine, unspecified, not intractable, without status migrainosus Instructions: Migraine Headache (ED) Condition: Good Pt referred to PMD for follow-up: No IPMP verified?: No Additional Instructions: FOLLOW UP WITH YOUR DOCTOR Allergies/Adverse Reactions: Allergies azithromycin [From Zithromax] Adverse Reaction (Verified 12/11/17 21:53) Difficulty Swallowing clarithromycin [From Biaxin] Adverse Reaction (Verified 12/11/17 21:53) Vomiting ketorolac tromethamine [From Toradol] Adverse Reaction (Verified 12/11/17 21:53) Difficulty Swallowing propoxyphene napsylate [From Darvocet-N] Adverse Reaction (Verified 12/11/17 21: 53) Vomiting sumatriptan [From Imitrex] Adverse Reaction (Verified 12/11/17 21:53) Difficulty Swallowing sumatriptan succinate [From Imitrex] Adverse Reaction (Verified 12/11/17 21:53) Difficulty Swallowing Home Medications: Ambulatory Orders Promethazine HCl [Phenergan Tab] 25 mg PO QID PRN #12 tablet 05/04/15 Acetazolamide [Diamox] 500 mg PO Q12HR 06/24/16 Docusate Sodium [Colace] 100 mg PO BID PRN 09/25/16 Verapamil HCl 120 mg PO BEDTIME 12/09/16 Topiramate [Trokendi Xr] 200 mg PO d 01/21/17 Baclofen 20 mg PO BID tab-cap 03/13/17 Butalbital/Aspirin/Caffeine [Fiorinal 50-325-40 mg Capsule] 1 each PO BID PRN Hydrocodone Bit/Acetaminophen [[place] 5-325] 1 tab PO BID PRN 12/11/17 Transfer Form Completed: Yes Disposition Discussed With: Patient, Family
== END 2018-01-05 19:40 | disposition home or self-care (01) ==
LOC: ED 18:33
DX: G43.909 Migraine, unspecified, not intractable, without status migrainosus (principal)
CPT/HCPCS: 96372; 99283

== ENCOUNTER 2018-03-03 20:08 | Emergency (ER) ==
[2018-03-03] MEDS ORDERED: DILAUDID 1 MG/ML SYRINGE IM STA (20:09)
[2018-03-03] MEDS ORDERED: PHENERGAN 25 MG/ML VIAL IM STA (20:10)
[2018-03-03 20:11] VITALS: BP 146/102; TEMP 97.3; BMI 29.9
--- NOTE | 2018-03-03 20:13 | ED.PDOC ---
General ED Provider: Dr. VÍCTOR CHAUDHRY-ER Chief Complaint: Headache Stated Complaint: ponce got a migraine Time Seen by Physician: 20:11 Mode of Arrival: Walk-In Information Source: Patient Exam Limitations: No limitations Primary Care Provider: HEAVENLY NELSON Nursing and Triage Documentation Reviewed and Agree: Yes Does patient meet sepsis criteria?: No System Inflammatory Response Syndrome: Not Applicable Sepsis Protocol: For patient's 13 years and over: Temp is 96.8 and below OR 101 and greater Pulse >90 BPM Resp >20/minute Acutely Altered Mental Status Are patient's symptoms suggestive of a new infection, such as: -Pneumonia -Skin, Soft Tissue -Endocarditis -UTI -Bone, Joint Infection -Implantable Device -Acute Abdominal Infection -Wound Infection -Meningitis -Blood Stream Catheter Infection -Unknown Neurological Complaint Exam - Headache Complaint/Exam Onset: Gradual Duration: 3 days Symptoms Are: Still present Timing: Constant Worst Headache Ever: No Initial Severity: Mild Current Severity: Moderate Location: Diffuse Character: Reports: Dull, Throbbing, Pressure, Typical headache, Migraine Aggravating: Reports: Bright lights Associated Signs and Symptoms: Reports: Nausea, Vomiting. Denies: Neck pain, Neck stiffness Related History: Reports: Similar episode ("this is my usual cruz") SAH Risk Factors: Reports: -[place] islander Meningitis Risk Factors: Reports: None SDH Risk Factors: Reports: None Temporal Arteritis Risk Factors: Reports: Female Normal Head CT Within Last 12 Months: Yes Fundoscopic Exam: Present: Normal Findings Papilledema Present: No Temporal Artery Tenderness: Present: None Sinus Tenderness: Present: None TMJ Tenderness: Present: None Glascow Coma Scale (see protocol): 15 Meningeal Signs Positive: No Pain on Passive Flexion-Positive Kernig's: No ROM Limited In: No Limitiations Focal Weakness: Present: None Focal Sensory Loss: Present: None Gait: Normal Nystagmus Present: No Gag Reflex Present: No [id number]: Normal Findings Romberg Test Positive: No Babinski Sign: Negative Right, Negative Left Heel to Toe Normal: Yes Differential Diagnoses: Migraine Review of Systems - Review Of Systems Constitutional: Reports: No symptoms Eyes: Reports: No symptoms Ears, Nose, Mouth, Throat: Reports: No symptoms Respiratory: Reports: No symptoms Cardiac: Reports: No symptoms GI: Reports: No symptoms : Reports: No symptoms Musculoskeletal: Reports: No symptoms Skin: Reports: No symptoms Neurological: Reports: Headache Endocrine: Reports: No symptoms Hematologic/Lymphatic: Reports: No symptoms All Other Systems: Reviewed and Negative Past Medical History - Past Medical History Previously Healthy: Yes Endocrine: Reports: None Cardiovascular: Reports: Hypertension Respiratory: Reports: None Hematological: Reports: None Gastrointestinal: Reports: GERD Genitourinary: Reports: None Neuro/Psych: Reports: Migraine Musculoskeletal: Reports: None Cancer: Reports: None Last Menstrual Period: none Other Pertinent Past Medical History: HYPOGLYCEMIA - Surgical History General Surgical History: Reports: Hysterectomy ([id number]), Other (sinus surgery 06/07/16, Lumbar puncture 06/21/16 shunt to brain 09/06/2016) - Family History Family History: Reports: Unknown - Social History Smoking Status: Never smoker Hx Substance Use: No Alcohol Screening: None - Immunizations Tetanus Shot up to Date: Yes Physical Exam - Physical Exam Appearance: Well-appearing, No pain distress, Well-nourished Eyes: RUDOLPH, EOMI, Conjunctiva clear ENT: Ears normal, Nose normal, Oropharynx normal Neck: Supple Respiratory: Airway patent Cardiovascular: RRR GI/: Soft Musculoskeletal: Normal strength Skin: Warm, Dry, Normal color Neurological: Sensation intact, Motor intact, Reflexes intact, Cranial nerves intact, Alert, Oriented Psychiatric: Affect appropriate, Mood appropriate Re-Evaluation - Re-Evaluation Time of Re-Evaluation: 20:30 Status: Improved Vital Signs Stable: Yes Pain Level: 1 Appearance: NAD Lungs: Clear Skin: Warm and Dry Neuro: Alert and Oriented X3 CV: RRR Critical Care Note - Critical Care Note Total Time (mins): 0 Course - Course Orders, Labs, Meds: Orders Category Date Time Status Hydromorphone HCl [Dilaudid 1 mg/ml Syringe] MEDS 03/03/18 20:09 Discontinued 2 mg IM ONCE STA Promethazine HCl [Phenergan 25 mg/ml Vial] MEDS 03/03/18 20:10 Discontinued 25 mg IM ONCE STA Medications Discontinued Medications Generic Name Dose Route Start Last Admin Trade Name Freq PRN Reason Stop Dose Admin Hydromorphone HCl 2 mg 03/03/18 20:09 Dilaudid 1 Mg/Ml Syringe IM 03/03/18 20:10 ONCE STA Promethazine HCl 25 mg 03/03/18 20:10 Phenergan 25 Mg/Ml Vial IM 03/03/18 20:11 ONCE STA Vital Signs: Temp Pulse Resp BP Pulse Ox 03/03/18 20:09 97.3 F L 80 16 146/102 H 99 Departure - Departure Time of Disposition: 20:14 Disposition: HOME SELF-CARE Discharge Problem: Migraine headache Qualifiers: Migraine type: unspecified Status migrainosus presence: without status migrainosus Intractability: not intractable Qualified Code(s): G43.909 - Migraine, unspecified, not intractable, without status migrainosus Instructions: Migraine Headache (ED) Condition: Good Pt referred to PMD for follow-up: No IPMP verified?: No Additional Instructions: f/u with pcp/neurologist Allergies/Adverse Reactions: Allergies azithromycin [From Zithromax] Adverse Reaction (Verified 01/30/18 09:31) Difficulty Swallowing clarithromycin [From Biaxin] Adverse Reaction (Verified 01/30/18 09:31) Vomiting dihydroergotamine Adverse Reaction (Verified 01/30/18 10:06) ketorolac tromethamine [From Toradol] Adverse Reaction (Verified 01/30/18 09:31) Difficulty Swallowing propoxyphene napsylate [From Darvocet-N] Adverse Reaction (Verified 01/30/18 09: 31) Vomiting sumatriptan [From Imitrex] Adverse Reaction (Verified 01/30/18 09:31) Difficulty Swallowing sumatriptan succinate [From Imitrex] Adverse Reaction (Verified 01/30/18 09:31) Difficulty Swallowing Home Medications: Ambulatory Orders Promethazine HCl [Phenergan Tab] 25 mg PO QID PRN #12 tablet 05/04/15 Acetazolamide [Diamox] 500 mg PO Q12HR 06/24/16 Docusate Sodium [Colace] 100 mg PO BID PRN 09/25/16 Verapamil HCl 120 mg PO BEDTIME 12/09/16 Topiramate [Trokendi Xr] 200 mg PO d 01/21/17 Baclofen 20 mg PO BID tab-cap 03/13/17 Butalbital/Aspirin/Caffeine [Fiorinal 50-325-40 mg Capsule] 1 each PO BID PRN Hydrocodone Bit/Acetaminophen [Garfield 5-325] 1 tab PO BID PRN 12/11/17 Diphenhydramine HCl [Benadryl] 25 mg PO BID PRN 01/27/18 Disposition Discussed With: Patient
== END 2018-03-03 20:50 | disposition home or self-care (01) ==
LOC: ED 20:08
DX: G43.909 Migraine, unspecified, not intractable, without status migrainosus (principal); R11.2 Nausea with vomiting, unspecified
CPT/HCPCS: 96372; 99282

== ENCOUNTER 2018-03-28 19:54 | Emergency (ER) | payer OTHER ==
[2018-03-28] MEDS ORDERED: NUBAIN IM STA (20:02)
[2018-03-28] MEDS ORDERED: PHENERGAN 25 MG/ML VIAL IM STA (20:03)
[2018-03-28 20:04] VITALS: TEMP 97.6; BMI 28.4
--- NOTE | 2018-03-28 20:04 | ED.PDOC ---
General ED Provider: Dr. SAVANNA BOWMAN Chief Complaint: Headache Stated Complaint: Global headaches that started 3 days ago consistent with her regular headaches. Has an apt with the Neurologist next week for follow up. Time Seen by Physician: 20:30 Mode of Arrival: Walk-In Information Source: Patient Exam Limitations: No limitations Primary Care Provider: HEAVENLY NELSON Nursing and Triage Documentation Reviewed and Agree: Yes Does patient meet sepsis criteria?: No System Inflammatory Response Syndrome: Not Applicable Sepsis Protocol: For patient's 13 years and over: Temp is 96.8 and below OR 101 and greater Pulse >90 BPM Resp >20/minute Acutely Altered Mental Status Are patient's symptoms suggestive of a new infection, such as: -Pneumonia -Skin, Soft Tissue -Endocarditis -UTI -Bone, Joint Infection -Implantable Device -Acute Abdominal Infection -Wound Infection -Meningitis -Blood Stream Catheter Infection -Unknown Neurological Complaint Exam - Headache Complaint/Exam Associated Signs and Symptoms: Reports: Nausea, Vomiting Related History: Reports: Similar episode SAH Risk Factors: Reports: -tanzanian Normal Head CT Within Last 12 Months: Yes Temporal Artery Tenderness: Present: None Sinus Tenderness: Present: None TMJ Tenderness: Present: None Glascow Coma Scale (see protocol): 15 Meningeal Signs Positive: No Pain on Passive Flexion-Positive Kernig's: No ROM Limited In: No Limitiations Focal Weakness: Present: None Focal Sensory Loss: Present: None Gait: Normal Nystagmus Present: No Gag Reflex Present: No [id number]: Normal Findings Romberg Test Positive: No Babinski Sign: Negative Right Heel to Toe Normal: Yes Differential Diagnoses: Migraine, Tension Headache Review of Systems - Review Of Systems Constitutional: Reports: No symptoms Eyes: Reports: Photophobia Ears, Nose, Mouth, Throat: Reports: No symptoms Respiratory: Reports: No symptoms Cardiac: Reports: No symptoms GI: Reports: Nausea, Vomiting : Reports: No symptoms Musculoskeletal: Reports: No symptoms Skin: Reports: No symptoms Neurological: Reports: Anxiety, Headache. Denies: Weakness Endocrine: Reports: No symptoms Hematologic/Lymphatic: Reports: No symptoms All Other Systems: Reviewed and Negative Past Medical History - Past Medical History Previously Healthy: Yes Endocrine: Reports: None Cardiovascular: Reports: Hypertension Respiratory: Reports: None Hematological: Reports: None Gastrointestinal: Reports: GERD Genitourinary: Reports: None Neuro/Psych: Reports: Migraine Musculoskeletal: Reports: None Cancer: Reports: None Other Pertinent Past Medical History: HYPOGLYCEMIA - Surgical History General Surgical History: Reports: Hysterectomy ([id number]), Other (sinus surgery 06/07/16, Lumbar puncture 06/21/16 shunt to brain 09/06/2016) - Family History Family History: Reports: Unknown - Social History Smoking Status: Never smoker Hx Substance Use: No Alcohol Screening: None Physical Exam - Physical Exam Appearance: Ill-appearing Pain Distress: Severe Eyes: RUDOLPH, EOMI, Conjunctiva clear Neck: Supple Respiratory: Airway patent, Breath sounds clear, Breath sounds equal, Respirations nonlabored Cardiovascular: RRR, Pulses normal, No rub, No murmur Skin: Warm, Dry, Normal color Neurological: Sensation intact, Motor intact, Reflexes intact, Cranial nerves intact, Alert, Oriented Psychiatric: Anxious Re-Evaluation - Re-Evaluation Time of Re-Evaluation: 20:50 Status: Improved Vital Signs Stable: Yes (142/91) Pain Level: much improved. Critical Care Note - Critical Care Note Total Time (mins): 0 Course - Course Orders, Labs, Meds: Orders Category Date Time Status Butorphanol Tartrate [Stadol] MEDS 03/28/18 20:30 Discontinued 2 mg IM ONCE STA Promethazine HCl [Phenergan 25 mg/ml Vial] MEDS 03/28/18 20:03 Discontinued 25 mg IM ONCE STA Medications Discontinued Medications Generic Name Dose Route Start Last Admin Trade Name Freq PRN Reason Stop Dose Admin Butorphanol Tartrate 2 mg 03/28/18 20:30 03/28/18 20:38 Stadol IM 03/28/18 20:31 2 mg ONCE STA Administration Promethazine HCl 25 mg 03/28/18 20:03 03/28/18 20:24 Phenergan 25 Mg/Ml Vial IM 03/28/18 20:04 25 mg ONCE STA Administration Vital Signs: Temp Pulse Resp BP Pulse Ox 03/28/18 20:55 76 20 142/91 H 97 03/28/18 19:57 97.6 F 98 H 18 155/96 H 98 Departure - Departure Time of Disposition: 20:50 Disposition: HOME SELF-CARE Discharge Problem: Migraine headache Qualifiers: Migraine type: without aura Status migrainosus presence: without status migrainosus Intractability: not intractable Qualified Code(s): G43.009 - Migraine without aura, not intractable, without status migrainosus Instructions: Migraine Headache (ED) Condition: Good Pt referred to PMD for follow-up: Yes IPMP verified?: No Additional Instructions: Push fluids Continue home medications Follow up with your neurologist next week. Allergies/Adverse Reactions: Allergies azithromycin [From Zithromax] Adverse Reaction (Verified 03/28/18 20:04) Difficulty Swallowing clarithromycin [From Biaxin] Adverse Reaction (Verified 03/28/18 20:04) Vomiting dihydroergotamine Adverse Reaction (Verified 03/28/18 20:04) elevates Blood Pressure ketorolac tromethamine [From Toradol] Adverse Reaction (Verified 03/28/18 20:04) Difficulty Swallowing nalbuphine [From Nubain] Adverse Reaction (Verified 03/28/18 20:22) Vomiting propoxyphene napsylate [From Darvocet-N] Adverse Reaction (Verified 03/28/18 20: 04) Vomiting sumatriptan [From Imitrex] Adverse Reaction (Verified 03/28/18 20:04) Difficulty Swallowing sumatriptan succinate [From Imitrex] Adverse Reaction (Verified 03/28/18 20:04) Difficulty Swallowing Home Medications: Ambulatory Orders Promethazine HCl [Phenergan Tab] 25 mg PO QID PRN #12 tablet 05/04/15 Topiramate [Trokendi Xr] 200 mg PO d 01/21/17 Butalbital/Aspirin/Caffeine [Fiorinal 50-325-40 Mg Capsule] 1 each PO BID PRN Diphenhydramine HCl [Benadryl] 25 mg PO BID PRN 01/27/18 Disposition Discussed With: Patient, Family
[2018-03-28] MEDS ORDERED: STADOL IM STA (20:30)
[2018-03-28 21:03] VITALS: BP 142/91
== END 2018-03-28 21:03 | disposition home or self-care (01) ==
LOC: ED 19:54
DX: G43.009 Migraine without aura, not intractable, without status migrainosus (principal)
CPT/HCPCS: 96372; 99283

== ENCOUNTER 2018-05-23 22:30 | Emergency (ER) ==
[2018-05-23 22:36] VITALS: BP 149/102; TEMP 97.7; BMI 26.8
[2018-05-23] MEDS ORDERED: STADOL IM STA (22:52)
[2018-05-23] MEDS ORDERED: PHENERGAN 25 MG/ML VIAL IM STA (22:52)
--- NOTE | 2018-05-23 22:55 | ED.PDOC ---
General ED Provider: Dr. SAVANNA BOWMAN Chief Complaint: Headache Stated Complaint: 2 week history of Typical migranes headaches located globally. States was seen by neurologist and gave her a new medication and adjusted other medications but did not work. states the pain is severe and is photophobic. Time Seen by Physician: 22:53 Mode of Arrival: Walk-In Information Source: Patient Exam Limitations: No limitations Primary Care Provider: HEAVENLY NELSON Nursing and Triage Documentation Reviewed and Agree: Yes Does patient meet sepsis criteria?: No System Inflammatory Response Syndrome: Not Applicable Sepsis Protocol: For patient's 13 years and over: Temp is 96.8 and below OR 101 and greater Pulse >90 BPM Resp >20/minute Acutely Altered Mental Status Are patient's symptoms suggestive of a new infection, such as: -Pneumonia -Skin, Soft Tissue -Endocarditis -UTI -Bone, Joint Infection -Implantable Device -Acute Abdominal Infection -Wound Infection -Meningitis -Blood Stream Catheter Infection -Unknown Neurological Complaint Exam - Headache Complaint/Exam Associated Signs and Symptoms: Reports: Nausea, Neck pain. Denies: Vomiting, Neck stiffness, Decreased LOC, Visual changes Related Surgical History: Reports: [employer] Shunt SAH Risk Factors: Reports: -nepalese Meningitis Risk Factors: Reports: None SDH Risk Factors: Reports: None Temporal Arteritis Risk Factors: Reports: None Normal Head CT Within Last 12 Months: Yes Temporal Artery Tenderness: Present: None Sinus Tenderness: Present: None TMJ Tenderness: Present: None Glascow Coma Scale (see protocol): 15 Meningeal Signs Positive: No Pain on Passive Flexion-Positive Kernig's: No ROM Limited In: No Limitiations Focal Weakness: Present: None Focal Sensory Loss: Present: None Gait: Normal Nystagmus Present: No Gag Reflex Present: No [id number]: Normal Findings Romberg Test Positive: No Babinski Sign: Negative Right, Negative Left Heel to Toe Normal: No Differential Diagnoses: Migraine Review of Systems - Review Of Systems Constitutional: Reports: No symptoms Eyes: Reports: Photophobia Ears, Nose, Mouth, Throat: Reports: No symptoms Respiratory: Reports: No symptoms Cardiac: Reports: No symptoms GI: Reports: No symptoms : Reports: No symptoms Musculoskeletal: Reports: Neck pain Skin: Reports: No symptoms Neurological: Reports: Anxiety, Headache Endocrine: Reports: No symptoms Hematologic/Lymphatic: Reports: No symptoms All Other Systems: Reviewed and Negative Past Medical History - Past Medical History Previously Healthy: Yes Endocrine: Reports: None Cardiovascular: Reports: Hypertension Respiratory: Reports: None Hematological: Reports: None Gastrointestinal: Reports: GERD Genitourinary: Reports: None Neuro/Psych: Reports: Migraine Musculoskeletal: Reports: None Cancer: Reports: None Last Menstrual Period: none Other Pertinent Past Medical History: HYPOGLYCEMIA - Surgical History General Surgical History: Reports: Hysterectomy ([id number]), Other (sinus surgery 06/07/16, Lumbar puncture 06/21/16 shunt to brain 09/06/2016) - Family History Family History: Reports: Unknown - Social History Smoking Status: Never smoker Hx Substance Use: No Alcohol Screening: None - Immunizations Tetanus Shot up to Date: Yes Physical Exam - Physical Exam Appearance: Ill-appearing Ill-appearing: Moderate Pain Distress: Severe Eyes: RUDOLPH, EOMI, Conjunctiva clear Neck: Supple Respiratory: Airway patent, Breath sounds clear, Breath sounds equal, Respirations nonlabored Cardiovascular: RRR, Pulses normal, No rub, No murmur GI/: Soft, Nontender, No masses, Bowel sounds normal, No Organomegaly Musculoskeletal: Normal strength, ROM intact, No edema, No calf tenderness Skin: Warm, Dry, Normal color Neurological: Sensation intact, Motor intact, Reflexes intact, Cranial nerves intact, Alert, Oriented Psychiatric: Anxious Critical Care Note - Critical Care Note Total Time (mins): 0 Course - Course Orders, Labs, Meds: Orders Category Date Time Status Butorphanol Tartrate [Stadol] MEDS 05/23/18 22:52 Stat 2 mg IM ONCE STA Promethazine HCl [Phenergan 25 mg/ml Vial] MEDS 05/23/18 22:52 Stat 25 mg IM ONCE STA Medications Generic Name Dose Route Start Last Admin Trade Name Freq PRN Reason Stop Dose Admin Butorphanol Tartrate 2 mg 05/23/18 22:52 Stadol IM 05/23/18 22:53 ONCE STA Promethazine HCl 25 mg 05/23/18 22:52 Phenergan 25 Mg/Ml Vial IM 05/23/18 22:53 ONCE STA Vital Signs: Temp Pulse Resp BP Pulse Ox 05/23/18 22:31 97.7 F 78 16 149/102 H 98 Departure - Departure Time of Disposition: 23:20 Disposition: HOME SELF-CARE Discharge Problem: Migraine headache Qualifiers: Migraine type: without aura Status migrainosus presence: without status migrainosus Intractability: intractable Qualified Code(s): G43.019 - Migraine without aura, intractable, without status migrainosus Instructions: Migraine Headache (ED) Condition: Fair Pt referred to PMD for follow-up: Yes IPMP verified?: No Additional Instructions: Continue home Medications Follow up with PCP in 3 days Allergies/Adverse Reactions: Allergies azithromycin [From Zithromax] Adverse Reaction (Verified 03/28/18 20:04) Difficulty Swallowing clarithromycin [From Biaxin] Adverse Reaction (Verified 03/28/18 20:04) Vomiting dihydroergotamine Adverse Reaction (Verified 03/28/18 20:04) elevates Blood Pressure ketorolac tromethamine [From Toradol] Adverse Reaction (Verified 03/28/18 20:04) Difficulty Swallowing nalbuphine [From Nubain] Adverse Reaction (Verified 03/28/18 20:22) Vomiting propoxyphene napsylate [From Darvocet-N] Adverse Reaction (Verified 03/28/18 20: 04) Vomiting sumatriptan [From Imitrex] Adverse Reaction (Verified 03/28/18 20:04) Difficulty Swallowing sumatriptan succinate [From Imitrex] Adverse Reaction (Verified 03/28/18 20:04) Difficulty Swallowing warfarin sodium [From Coumadin] Adverse Reaction (Unverified 04/29/18 09:42) vomiting allergy was not listed in allergy list as of 04/29/18 Home Medications: Ambulatory Orders Promethazine HCl [Phenergan Tab] 25 mg PO QID PRN #12 tablet 05/04/15 Topiramate [Trokendi Xr] 200 mg PO d 01/21/17 Butalbital/Aspirin/Caffeine [Fiorinal 50-325-40 Mg Capsule] 1 each PO BID PRN Diphenhydramine HCl [Benadryl] 25 mg PO BID PRN 01/27/18 Disposition Discussed With: Patient
== END 2018-05-23 23:50 | disposition home or self-care (01) ==
LOC: ED 22:30
DX: G43.019 Migraine without aura, intractable, without status migrainosus (principal); I10 Essential (primary) hypertension
CPT/HCPCS: 96372; 99283

== ENCOUNTER 2018-07-11 17:19 | Emergency (ER) ==
[2018-07-11 17:31] VITALS: BP 150/96; TEMP 97.5; BMI 28.0
[2018-07-11] MEDS ORDERED: NORCO 10-325 PO STA (17:59)
--- NOTE | 2018-07-11 18:02 | ED.PDOC ---
General ED Provider: Dr. BRE RODRIGUEZ Chief Complaint: Headache Stated Complaint: headache Time Seen by Physician: 17:20 (chronic headache /pt claims her neck is wollen , but on exam no edema noted ) Mode of Arrival: Walk-In Information Source: Patient Exam Limitations: No limitations (pt seen at all times with brayan) Primary Care Provider: HEAVENLY NELSON Nursing and Triage Documentation Reviewed and Agree: Yes (ON ARRIVAL FULL NEURO EXAM WAS WNL. ) Does patient meet sepsis criteria?: No System Inflammatory Response Syndrome: Not Applicable Sepsis Protocol: For patient's 13 years and over: Temp is 96.8 and below OR 101 and greater Pulse >90 BPM Resp >20/minute Acutely Altered Mental Status Are patient's symptoms suggestive of a new infection, such as: -Pneumonia -Skin, Soft Tissue -Endocarditis -UTI -Bone, Joint Infection -Implantable Device -Acute Abdominal Infection -Wound Infection -Meningitis -Blood Stream Catheter Infection -Unknown Neurological Complaint Exam - Headache Complaint/Exam Onset: Gradual Duration: 4 days ago Symptoms Are: Still present Timing: Constant Episodes Lasting: Hours Worst Headache Ever: No Initial Severity: Moderate Current Severity: Mild Location: Diffuse Character: Reports: Typical headache Aggravating: Reports: None Alleviating: Reports: None Associated Signs and Symptoms: Reports: Neck pain (pt stated her neck is swollen ). Denies: Dizziness, Seizure, Nausea, Vomiting, Sinus pressure, Fever, Neck stiffness, Decreased LOC, Visual changes Related History: Reports: Similar episode Related Surgical History: Reports: None SAH Risk Factors: Reports: -[place], Hypertension Meningitis Risk Factors: Reports: None SDH Risk Factors: Reports: None Temporal Arteritis Risk Factors: Reports: Female Fundoscopic Exam: Present: Normal Findings Papilledema Present: No Temporal Artery Tenderness: Present: None Sinus Tenderness: Present: None TMJ Tenderness: Present: None Glascow Coma Scale (see protocol): 15 Meningeal Signs Positive: No Pain on Passive Flexion-Positive Kernig's: No ROM Limited In: No Limitiations Focal Weakness: Present: None Focal Sensory Loss: Present: None Gait: Normal Nystagmus Present: No Gag Reflex Present: Yes [id number]: Normal Findings Babinski Sign: Negative Right, Negative Left Differential Diagnoses: Migraine Review of Systems - Review Of Systems Constitutional: Reports: No symptoms Eyes: Reports: No symptoms Ears, Nose, Mouth, Throat: Reports: No symptoms Respiratory: Reports: No symptoms Cardiac: Reports: No symptoms GI: Reports: No symptoms : Reports: No symptoms Musculoskeletal: Reports: No symptoms Skin: Reports: No symptoms Neurological: Reports: Headache Endocrine: Reports: No symptoms Hematologic/Lymphatic: Reports: No symptoms All Other Systems: Reviewed and Negative Past Medical History - Past Medical History Previously Healthy: Yes Endocrine: Reports: None Cardiovascular: Reports: Hypertension Respiratory: Reports: None Hematological: Reports: None Gastrointestinal: Reports: GERD Genitourinary: Reports: None Neuro/Psych: Reports: Migraine Musculoskeletal: Reports: None Cancer: Reports: None Last Menstrual Period: HAS HAD A HYSTERECTOMY Other Pertinent Past Medical History: HYPOGLYCEMIA - Surgical History General Surgical History: Reports: Hysterectomy ([id number]), Other (sinus surgery 06/07/16, Lumbar puncture 06/21/16 shunt to brain 09/06/2016) - Family History Family History: Reports: Unknown - Social History Smoking Status: Never smoker Hx Substance Use: No Alcohol Screening: None - Immunizations Tetanus Shot up to Date: Yes Physical Exam - Physical Exam Appearance: Well-appearing, No pain distress, Well-nourished Eyes: RUDOPLH, EOMI, Conjunctiva clear ENT: Ears normal, Nose normal, Oropharynx normal Respiratory: Airway patent, Breath sounds clear, Breath sounds equal, Respirations nonlabored Cardiovascular: RRR, Pulses normal, No rub, No murmur GI/: Soft, Nontender, No masses, Bowel sounds normal, No Organomegaly Musculoskeletal: Normal strength, ROM intact, No edema, No calf tenderness Skin: Warm, Dry, Normal color Neurological: Sensation intact, Motor intact, Reflexes intact, Cranial nerves intact, Alert, Oriented Psychiatric: Affect appropriate, Mood appropriate - NIH Stroke Scale 1a. Level of Consciousness: 0=Alert and keenly responsive 1b. Level of Consciousness Questions: 0=Answers correctly to two questions 1c. Level of Consciousness Commands: 0=Performs two tasks correctly 2. Best Gaze: 0=Normal 3. Visual: 0=No visual loss 4. Facial Palsy: 0=Normal 5a. Motor Left Arm: 0=No drift,arm holds 90 degrees for 10 sec., leg 30 degrees for 5 sec. 5b. Motor Right Arm: 0=No drift,arm holds 90 degrees for 10 sec., leg 30 degrees for 5 sec. 6a. Motor Left Le=No drift,arm holds 90 degrees for 10 sec., leg 30 degrees for 5 sec. 6b. Motor Right Le=No drift,arm holds 90 degrees for 10 sec., leg 30 degrees for 5 sec. 7. Limb Ataxia: 0=Absent 8. Sensory: 0=Normal 9. Best Language: 0=No aphasia 10. Dysarthria: 0=Normal 11. Extincion and Inattention: 0=Normal Stroke Scale Total: 0 Re-Evaluation - Re-Evaluation Time of Re-Evaluation: 18:27 (full neuro exam done with ananth ) Status: Unchanged Vital Signs Stable: Yes Pain Level: 4-5/10 Appearance: NAD Lungs: Clear Skin: Warm and Dry Neuro: Other (C.N. 2 - 12 INTACT ALL REFLEXES WNL. GAIT NORMAL WITH NO ATAXIA, MOTOR 5/5 BILATERALLY UPPER/LOWER EXT. NYSTAGMUS NEGATIVE. OFFERED NORCO 10/325 PT STATED "I HAVE THOSE AT HOME" CALLED HER RELATIVES TO COME AND GET HER .DID NOT WAIT FOR THE RESULT OF THE SCANS OR LAB WORK) Critical Care Note - Critical Care Note Total Time (mins): 0 Course - Course Hematology/Chemistry: 07/11/18 18:04 Orders, Labs, Meds: Lab Review 07/11/18 18:04 WBC 3.51 L RBC 3.78 L Hgb 12.5 Hct 37.3 MCV 98.7 MCH 33.1 H MCHC 33.5 RDW Coeff of Ashu 13.9 Plt Count 137 L Immature Gran % (Auto) 0.0 Neut % (Auto) 34.5 Lymph % (Auto) 55.0 H [place] % (Auto) 8.5 Eos % (Auto) 1.4 Baso % (Auto) 0.6 Immature Gran # (Auto) 0.0 Neut # (Auto) 1.2 L Lymph # (Auto) 1.9 [place] # (Auto) 0.3 L Eos # (Auto) 0.1 Baso # (Auto) 0.0 Orders Category Date Time Status CBC W/ AUTO DIFF Stat LAB 07/11/18 18:04 Completed COMPREHENSIVE METABOLIC PANEL Stat LAB 07/11/18 18:04 Received Hydrocodone Bit/Acetaminophen [[place] 10-325] MEDS 07/11/18 17:59 Discontinued 1 tab PO ONCE STA CT HEAD W/O CONTRAST Stat RADS 07/11/18 17:[address] SOFT TISSUE NECK W/O CONTR Stat RADS 07/11/18 17:58 Taken Medications Discontinued Medications Generic Name Dose Route Start Last Admin Trade Name Freq PRN Reason Stop Dose Admin Hydrocodone Bitart/Acetaminophen 1 tab 07/11/18 17:59 07/11/18 18:17 [place] 10-325 PO 07/11/18 18:00 Not Given ONCE STA Vital Signs: Temp Pulse Resp BP Pulse Ox 07/11/18 17:20 97.5 F L 86 18 150/96 H 99 Departure - Departure Time of Disposition: 18:30 Disposition: AMA Discharge Problem: Headache Instructions: Acute Headache (DC) Condition: Good Pt referred to PMD for follow-up: Yes IPMP verified?: No Additional Instructions: Please call your Family Physician as soon as possible to schedule a follow-up appointment. Allergies/Adverse Reactions: Allergies azithromycin [From Zithromax] Adverse Reaction (Verified 07/11/18 17:31) Difficulty Swallowing butorphanol [From Stadol] Adverse Reaction (Verified 07/11/18 17:31) "MAKES ME LOOPY" clarithromycin [From Biaxin] Adverse Reaction (Verified 07/11/18 17:31) Vomiting dihydroergotamine Adverse Reaction (Verified 07/11/18 17:31) elevates Blood Pressure ketorolac tromethamine [From Toradol] Adverse Reaction (Verified 07/11/18 17:31) Difficulty Swallowing nalbuphine [From Nubain] Adverse Reaction (Verified 07/11/18 17:31) Vomiting propoxyphene napsylate [From Darvocet-N] Adverse Reaction (Verified 07/11/18 17: 31) Vomiting sumatriptan [From Imitrex] Adverse Reaction (Verified 07/11/18 17:31) Difficulty Swallowing sumatriptan succinate [From Imitrex] Adverse Reaction (Verified 07/11/18 17:31) Difficulty Swallowing warfarin sodium [From Coumadin] Adverse Reaction (Verified 07/11/18 17:31) vomiting allergy was not listed in allergy list as of 04/29/18 Home Medications: Ambulatory Orders Promethazine HCl [Phenergan Tab] 25 mg PO QID PRN #12 tablet 05/04/15 Topiramate [Trokendi Xr] 200 mg PO d 01/21/17 Butalbital/Aspirin/Caffeine [Fiorinal 50-325-40 Mg Capsule] 1 each PO BID PRN Diphenhydramine HCl [Benadryl] 25 mg PO BID PRN 01/27/18 Tramadol HCl [Ultram] 50 mg PO BEDTIME PRN 07/11/18 Disposition Discussed With: Patient
--- NOTE | 2018-07-11 18:24 | CT ---
EXAM: CT of the head without contrast. HISTORY: Pain. COMPARISON: 07/21/2017. TECHNIQUE: Noncontrast CT of the head. FINDINGS: No intracranial hemorrhage or mass effect is identified. A left frontal ventriculostomy catheter is again seen with tip in the region of the third ventricle. There is unchanged decompression of the ve ntricles. Basal ganglial calcifications are incidentally noted. No lanier white matter differentiation loss is seen to suggest an acute infarct. The calvarium is intact. The visualized paranasal sinuses are unopacified. IMPRESSION: No evidence of an acute intracranial process. Stable ventriculostomy catheter. Stable decompression of the ventricles.
--- NOTE | 2018-07-11 18:26 | CT ---
EXAM: CT scan of the neck soft tissues without contrast HISTORY: Pain TECHNIQUE: Helical imaging of the neck soft tissues was performed without contrast. 3 mm thin axial images and coronal and sagittal reconstructions were provided for interpretation. Comparison none. FINDINGS: A [employer]ICE shunt catheter is identified along the posterior left neck soft tissues. The parotid and submandibular glands are normal. The nasopharynx, tonsils, tongue base and epiglottis appear no rmal. No acute abnormalities are seen within the piriform sinuses. No abnormal lymph nodes are iden tified. The paranasal sinuses and mastoid air cells are clear. Upper lungs are clear. No lytic or blastic lesions are seen within the osseous structures. IMPRESSION: A [employer] AP[employer]ICE shunt catheter is identified along the posterior soft tissues of the neck on the le ft. The catheter appears to be intact. No acute abnormalities are seen within the soft tissues of the neck.
[2018-07-11] MEDS ORDERED: DILAUDID 1 MG/ML SYRINGE IM STA (19:16)
[2018-07-11] MEDS ORDERED: PHENERGAN 25 MG/ML VIAL IM STA (19:17)
== END 2018-07-11 20:08 | disposition home or self-care (01) ==
LOC: ED 17:19
DX: R51 Headache (principal); M54.2 Cervicalgia; I10 Essential (primary) hypertension
CPT/HCPCS: 36415; 80053; 85025; 96372; 99283

== ENCOUNTER 2018-07-21 11:20 | Outpatient (CLI) | END 2018-07-21 11:21 | disposition home or self-care (01) | LOC: RHC-LAB 11:20 | PROVIDERS: ATTEND Nurse Practitioner Family | DX: Z00.00 Encounter for general adult medical examination without abnormal findings (principal) | CPT/HCPCS: 36415; 80053; 80061 ==

== ENCOUNTER 2018-07-27 20:14 | Emergency (ER) ==
[2018-07-27 20:22] VITALS: BP 131/90; TEMP 97.7; BMI 26.8
[2018-07-27] MEDS ORDERED: PHENERGAN 25 MG/ML VIAL IM STA (20:31)
[2018-07-27] MEDS ORDERED: DILAUDID 4 MG/ML SYRINGE IM STA (20:31)
--- NOTE | 2018-07-27 20:34 | ED.PDOC ---
General ED Provider: Dr. VÍCTOR CHAUDHRY-ER Chief Complaint: Headache Stated Complaint: im having a migraine cruz Time Seen by Physician: 20:20 Mode of Arrival: Walk-In Information Source: Patient Exam Limitations: No limitations Primary Care Provider: HEAVENLY NELSON Nursing and Triage Documentation Reviewed and Agree: Yes Does patient meet sepsis criteria?: No System Inflammatory Response Syndrome: Not Applicable Sepsis Protocol: For patient's 13 years and over: Temp is 96.8 and below OR 101 and greater Pulse >90 BPM Resp >20/minute Acutely Altered Mental Status Are patient's symptoms suggestive of a new infection, such as: -Pneumonia -Skin, Soft Tissue -Endocarditis -UTI -Bone, Joint Infection -Implantable Device -Acute Abdominal Infection -Wound Infection -Meningitis -Blood Stream Catheter Infection -Unknown Neurological Complaint Exam - Headache Complaint/Exam Onset: Gradual Duration: 24 hrs Symptoms Are: Still present Timing: Constant Worst Headache Ever: No Initial Severity: Mild Current Severity: Moderate Location: Diffuse Character: Reports: Dull, Throbbing, Typical headache, Migraine Aggravating: Reports: Bright lights Alleviating: Reports: None Associated Signs and Symptoms: Reports: Nausea, Vomiting Related History: Reports: Similar episode ("just like my other migraine cruz") Related Surgical History: Reports: None Meningitis Risk Factors: Reports: None SDH Risk Factors: Reports: None Temporal Arteritis Risk Factors: Reports: None Normal Head CT Within Last 12 Months: Yes Fundoscopic Exam: Present: Normal Findings Papilledema Present: No Temporal Artery Tenderness: Present: None Sinus Tenderness: Present: None TMJ Tenderness: Present: None Glascow Coma Scale (see protocol): 15 Meningeal Signs Positive: No Pain on Passive Flexion-Positive Kernig's: Yes ROM Limited In: No Limitiations Focal Weakness: Present: None Focal Sensory Loss: Present: None Gait: Normal Nystagmus Present: No Gag Reflex Present: Yes [id number]: Normal Findings Romberg Test Positive: No Babinski Sign: Negative Right, Negative Left Heel to Toe Normal: Yes Differential Diagnoses: Migraine Review of Systems - Review Of Systems Constitutional: Reports: No symptoms Eyes: Reports: No symptoms Ears, Nose, Mouth, Throat: Reports: No symptoms Respiratory: Reports: No symptoms Cardiac: Reports: No symptoms GI: Reports: Nausea, Vomiting : Reports: No symptoms Musculoskeletal: Reports: No symptoms Skin: Reports: No symptoms Neurological: Reports: Headache Endocrine: Reports: No symptoms Hematologic/Lymphatic: Reports: No symptoms All Other Systems: Reviewed and Negative Past Medical History - Past Medical History Previously Healthy: Yes Endocrine: Reports: None Cardiovascular: Reports: Hypertension Respiratory: Reports: None Hematological: Reports: None Gastrointestinal: Reports: GERD Genitourinary: Reports: None Neuro/Psych: Reports: Migraine Musculoskeletal: Reports: None Cancer: Reports: None Last Menstrual Period: HAS HAD A HYSTERECTOMY Other Pertinent Past Medical History: HYPOGLYCEMIA - Surgical History General Surgical History: Reports: Hysterectomy ([id number]), Other (sinus surgery 06/07/16, Lumbar puncture 06/21/16 shunt to brain 09/06/2016) - Family History Family History: Reports: Unknown - Social History Smoking Status: Never smoker Hx Substance Use: No Alcohol Screening: None - Immunizations Tetanus Shot up to Date: Yes Physical Exam - Physical Exam Appearance: Well-appearing, No pain distress, Well-nourished Pain Distress: Moderate Eyes: RUDOLPH ENT: Ears normal, Nose normal, Oropharynx normal Neck: Supple Respiratory: Airway patent, Breath sounds clear, Breath sounds equal, Respirations nonlabored Cardiovascular: RRR, Pulses normal, No rub, No murmur GI/: Soft, Nontender, No masses, Bowel sounds normal, No Organomegaly Musculoskeletal: Normal strength, ROM intact, No edema, No calf tenderness Skin: Warm, Dry, Normal color Neurological: Sensation intact, Motor intact, Reflexes intact, Cranial nerves intact, Alert, Oriented Psychiatric: Affect appropriate, Mood appropriate Re-Evaluation - Re-Evaluation Time of Re-Evaluation: 21:15 Status: Improved Vital Signs Stable: Yes Pain Level: 1 Appearance: NAD Lungs: Clear Skin: Warm and Dry Neuro: Alert and Oriented X3 CV: RRR Critical Care Note - Critical Care Note Total Time (mins): 0 Course - Course Orders, Labs, Meds: Orders Category Date Time Status Hydromorphone HCl/Pf [Dilaudid 4 mg/ml Syringe] MEDS 07/27/18 20:31 Stat 2 mg IM ONCE STA Promethazine HCl [Phenergan 25 mg/ml Vial] MEDS 07/27/18 20:31 Stat 25 mg IM ONCE STA Medications Generic Name Dose Route Start Last Admin Trade Name Freq PRN Reason Stop Dose Admin Hydromorphone HCl 2 mg 07/27/18 20:31 Dilaudid 4 Mg/Ml Syringe IM 07/27/18 20:32 ONCE STA Promethazine HCl 25 mg 07/27/18 20:31 Phenergan 25 Mg/Ml Vial IM 07/27/18 20:32 ONCE STA Vital Signs: Temp Pulse Resp BP Pulse Ox 07/27/18 20:16 97.7 F 88 18 131/90 98 Departure - Departure Time of Disposition: 20:34 Disposition: HOME SELF-CARE Discharge Problem: Migraine headache Qualifiers: Migraine type: unspecified Status migrainosus presence: without status migrainosus Intractability: not intractable Qualified Code(s): G43.909 - Migraine, unspecified, not intractable, without status migrainosus Instructions: Migraine Headache (ED) Condition: Good Pt referred to PMD for follow-up: No IPMP verified?: No Additional Instructions: f/u wtih pcp Allergies/Adverse Reactions: Allergies azithromycin [From Zithromax] Adverse Reaction (Verified 07/27/18 20:22) Difficulty Swallowing butorphanol [From Stadol] Adverse Reaction (Verified 07/27/18 20:22) "MAKES ME LOOPY" clarithromycin [From Biaxin] Adverse Reaction (Verified 07/27/18 20:22) Vomiting dihydroergotamine Adverse Reaction (Verified 07/27/18 20:22) elevates Blood Pressure ketorolac tromethamine [From Toradol] Adverse Reaction (Verified 07/27/18 20:22) Difficulty Swallowing nalbuphine [From Nubain] Adverse Reaction (Verified 07/27/18 20:22) Vomiting propoxyphene napsylate [From Darvocet-N] Adverse Reaction (Verified 07/27/18 20: 22) Vomiting sumatriptan [From Imitrex] Adverse Reaction (Verified 07/27/18 20:22) Difficulty Swallowing sumatriptan succinate [From Imitrex] Adverse Reaction (Verified 07/27/18 20:22) Difficulty Swallowing warfarin sodium [From Coumadin] Adverse Reaction (Verified 07/27/18 20:22) vomiting allergy was not listed in allergy list as of 04/29/18 Home Medications: Ambulatory Orders Promethazine HCl [Phenergan Tab] 25 mg PO QID PRN #12 tablet 05/04/15 Topiramate [Trokendi Xr] 200 mg PO d 01/21/17 Butalbital/Aspirin/Caffeine [Fiorinal 50-325-40 Mg Capsule] 1 each PO BID PRN Diphenhydramine HCl [Benadryl] 25 mg PO BID PRN 01/27/18 Tramadol HCl [Ultram] 50 mg PO BEDTIME PRN 07/11/18 Disposition Discussed With: Patient
[2018-07-27] MEDS ORDERED: DILAUDID 1 MG/ML SYRINGE IM STA (20:36)
== END 2018-07-27 21:21 | disposition home or self-care (01) ==
LOC: ED 20:14
DX: G43.909 Migraine, unspecified, not intractable, without status migrainosus (principal)
CPT/HCPCS: 96372; 99283

== ENCOUNTER 2018-08-05 10:52 | Outpatient (CLI) ==
--- NOTE | 2018-08-05 12:18 | DI ---
EXAM: CHEST FRONTAL AND LATERAL VIEWS HISTORY: Neck pain, difficulty swallowing. COMPARISON: 09/25/2016 FINDINGS: Heart size and mediastinal contour remain within normal limits. No acute infiltrates. Normal vascularity with no pleural fluid or pneumothorax. The bony thorax has no acute finding. Th ere is a catheter extending down the left side of the chest suggesting a ventriculoperitoneal shunt. IMPRESSION: No acute process.
--- NOTE | 2018-08-05 13:50 | DI ---
EXAM: KUB HISTORY: Neck pain, difficulty swallowing, status post shunt. FINDINGS / IMPRESSION: There is a catheter extending down the left aspect of the abdomen ending ove r the anatomic pelvis with no discontinuity or mass effect at its end. There is no radiographic evid ence of ascites. No organomegaly or suspicious calcification. Normal bowel gas pattern.
--- NOTE | 2018-08-05 14:22 | DI ---
EXAM: Neck soft tissue AP and lateral views HISTORY: Neck pain difficult swallowing status post shunt. FINDINGS: A catheter is seen extending down the lateral left neck and the left upper chest which is i ntact without discontinuity. The oropharyngeal airway is normally patent. Grossly normal tonsillar shadows. There is no radiopaque foreign body or upper tracheal narrowing. Bones are within normal l imits. Prevertebral soft tissue thickness is normal. IMPRESSION: 1. Findings within normal limits radiographically.
--- NOTE | 2018-08-05 14:26 | DI ---
EXAM: Skull two views HISTORY: Neck pain, difficulty swallowing, shunt placement. FINDINGS: There is a ventriculoperitoneal shunt noted which is intact without discontinuity. The sk ull has no evidence of abnormal density or fracture. IMPRESSION: 1. Shunt catheter appears within normal limits radiographically.
== END 2018-08-05 10:53 | disposition home or self-care (01) ==
LOC: RAD 10:52
PROVIDERS: ATTEND Nurse Practitioner Family
DX: M54.2 Cervicalgia (principal); R13.10 Dysphagia, unspecified; Z98.2 Presence of cerebrospinal fluid drainage device

== ENCOUNTER 2018-08-09 18:52 | Emergency (ER) ==
--- NOTE | 2018-08-09 18:57 | ED.PDOC ---
General ED Provider: Dr. VÍCTOR CHAUDHRY-ER Chief Complaint: Headache Stated Complaint: ponce had a migraine all day Time Seen by Physician: 18:55 Mode of Arrival: Walk-In Information Source: Patient Exam Limitations: No limitations Primary Care Provider: HEAVENLY NELSON Nursing and Triage Documentation Reviewed and Agree: Yes Does patient meet sepsis criteria?: No System Inflammatory Response Syndrome: Not Applicable Sepsis Protocol: For patient's 13 years and over: Temp is 96.8 and below OR 101 and greater Pulse >90 BPM Resp >20/minute Acutely Altered Mental Status Are patient's symptoms suggestive of a new infection, such as: -Pneumonia -Skin, Soft Tissue -Endocarditis -UTI -Bone, Joint Infection -Implantable Device -Acute Abdominal Infection -Wound Infection -Meningitis -Blood Stream Catheter Infection -Unknown Neurological Complaint Exam - Headache Complaint/Exam Onset: Gradual Duration: several hours Symptoms Are: Still present Timing: Constant Worst Headache Ever: No Initial Severity: Mild Current Severity: Moderate Location: Diffuse Character: Reports: Dull, Throbbing, Typical headache, Migraine Aggravating: Reports: Bright lights Alleviating: Reports: None Associated Signs and Symptoms: Reports: Nausea, Vomiting Related History: Reports: Similar episode Related Surgical History: Reports: None SAH Risk Factors: Reports: None Temporal Arteritis Risk Factors: Reports: Female Normal Head CT Within Last 12 Months: Yes Fundoscopic Exam: Present: Normal Findings Papilledema Present: No Temporal Artery Tenderness: Present: None Sinus Tenderness: Present: None TMJ Tenderness: Present: None Glascow Coma Scale (see protocol): 15 Meningeal Signs Positive: No Pain on Passive Flexion-Positive Kernig's: No ROM Limited In: No Limitiations Focal Weakness: Present: None Gait: Normal Nystagmus Present: No Gag Reflex Present: No Romberg Test Positive: No Babinski Sign: Negative Right, Negative Left Heel to Toe Normal: No Differential Diagnoses: Migraine Review of Systems - Review Of Systems Constitutional: Reports: No symptoms Eyes: Reports: No symptoms Ears, Nose, Mouth, Throat: Reports: No symptoms Respiratory: Reports: No symptoms Cardiac: Reports: No symptoms GI: Reports: Nausea : Reports: No symptoms Musculoskeletal: Reports: No symptoms Skin: Reports: No symptoms Neurological: Reports: Headache Endocrine: Reports: No symptoms Hematologic/Lymphatic: Reports: No symptoms All Other Systems: Reviewed and Negative Past Medical History - Past Medical History Previously Healthy: Yes Endocrine: Reports: None Cardiovascular: Reports: Hypertension Respiratory: Reports: None Hematological: Reports: None Gastrointestinal: Reports: GERD Genitourinary: Reports: None Neuro/Psych: Reports: Migraine Musculoskeletal: Reports: None Cancer: Reports: None Other Pertinent Past Medical History: HYPOGLYCEMIA - Surgical History General Surgical History: Reports: Hysterectomy ([id number]), Other (sinus surgery 06/07/16, Lumbar puncture 06/21/16 shunt to brain 09/06/2016) - Family History Family History: Reports: Unknown - Social History Smoking Status: Never smoker Hx Substance Use: No Alcohol Screening: None Physical Exam - Physical Exam Appearance: Well-appearing, No pain distress, Well-nourished Pain Distress: Moderate Eyes: RUDOLPH, EOMI, Conjunctiva clear ENT: Ears normal, Nose normal, Oropharynx normal Neck: Supple Respiratory: Airway patent, Breath sounds clear, Breath sounds equal, Respirations nonlabored Cardiovascular: RRR, Pulses normal, No rub, No murmur GI/: Soft, Nontender, No masses, Bowel sounds normal, No Organomegaly Musculoskeletal: Normal strength, ROM intact, No edema, No calf tenderness Skin: Warm, Dry, Normal color Neurological: Sensation intact, Motor intact, Reflexes intact, Cranial nerves intact, Alert, Oriented Psychiatric: Affect appropriate, Mood appropriate Re-Evaluation - Re-Evaluation Time of Re-Evaluation: 19:30 Status: Improved Vital Signs Stable: Yes Pain Level: 1 Appearance: NAD Lungs: Clear Skin: Warm and Dry Neuro: Alert and Oriented X3 CV: RRR Critical Care Note - Critical Care Note Total Time (mins): 0 Course - Course Orders, Labs, Meds: Orders Category Date Time Status Hydromorphone HCl [Dilaudid 1 mg/ml Syringe] MEDS 08/09/18 18:54 Discontinued 2 mg IM ONCE STA Promethazine HCl [Phenergan 25 mg/ml Vial] MEDS 08/09/18 18:54 Discontinued 25 mg IM ONCE STA Medications Discontinued Medications Generic Name Dose Route Start Last Admin Trade Name Freq PRN Reason Stop Dose Admin Hydromorphone HCl 2 mg 08/09/18 18:54 08/09/18 19:04 Dilaudid 1 Mg/Ml Syringe IM 08/09/18 18:55 2 mg ONCE STA Administration Promethazine HCl 25 mg 08/09/18 18:54 08/09/18 19:04 Phenergan 25 Mg/Ml Vial IM 08/09/18 18:55 25 mg ONCE STA Administration this headache is the same as previous migraine cruz--no diff in intesity Vital Signs: Temp Pulse Resp BP Pulse Ox 08/09/18 19:36 90 18 123/81 98 08/09/18 18:53 98.2 F 113 H 20 139/94 H 97 Departure - Departure Time of Disposition: 18:58 Disposition: HOME SELF-CARE Discharge Problem: Migraine headache Qualifiers: Migraine type: unspecified Status migrainosus presence: without status migrainosus Intractability: not intractable Qualified Code(s): G43.909 - Migraine, unspecified, not intractable, without status migrainosus Instructions: Migraine Headache (ED) Condition: Good Pt referred to PMD for follow-up: Yes IPMP verified?: No Additional Instructions: f/u with pcp Allergies/Adverse Reactions: Allergies azithromycin [From Zithromax] Adverse Reaction (Verified 08/09/18 18:58) Difficulty Swallowing butorphanol [From Stadol] Adverse Reaction (Verified 08/09/18 18:58) "MAKES ME LOOPY" clarithromycin [From Biaxin] Adverse Reaction (Verified 08/09/18 18:58) Vomiting dihydroergotamine Adverse Reaction (Verified 08/09/18 18:58) elevates Blood Pressure ketorolac tromethamine [From Toradol] Adverse Reaction (Verified 08/09/18 18:58) Difficulty Swallowing nalbuphine [From Nubain] Adverse Reaction (Verified 08/09/18 18:58) Vomiting propoxyphene napsylate [From Darvocet-N] Adverse Reaction (Verified 08/09/18 18: 58) Vomiting sumatriptan [From Imitrex] Adverse Reaction (Verified 08/09/18 18:58) Difficulty Swallowing sumatriptan succinate [From Imitrex] Adverse Reaction (Verified 08/09/18 18:58) Difficulty Swallowing warfarin sodium [From Coumadin] Adverse Reaction (Verified 08/09/18 18:58) vomiting allergy was not listed in allergy list as of 04/29/18 Home Medications: Ambulatory Orders Promethazine HCl [Phenergan Tab] 25 mg PO QID PRN #12 tablet 05/04/15 Topiramate [Trokendi Xr] 200 mg PO d 01/21/17 Butalbital/Aspirin/Caffeine [Fiorinal 50-325-40 Mg Capsule] 1 each PO BID PRN Diphenhydramine HCl [Benadryl] 25 mg PO BID PRN 01/27/18 Tramadol HCl [Ultram] 50 mg PO BEDTIME PRN 07/11/18 Disposition Discussed With: Patient
[2018-08-09 18:58] VITALS: TEMP 98.2; BMI 26.3
[2018-08-09] MEDS: PHENERGAN 25 MG/ML VIAL IM STA (19:04)
[2018-08-09] MEDS: DILAUDID 1 MG/ML SYRINGE IM STA (19:04)
[2018-08-09 19:37] VITALS: BP 123/81
== END 2018-08-09 19:50 | disposition home or self-care (01) ==
LOC: ED 18:52
DX: G43.909 Migraine, unspecified, not intractable, without status migrainosus (principal); I10 Essential (primary) hypertension
CPT/HCPCS: 96372; 99282

== ENCOUNTER 2018-08-22 18:51 | Emergency (ER) ==
[2018-08-22 18:58] VITALS: BP 135/98; TEMP 97.2; BMI 26.1
[2018-08-22] MEDS ORDERED: PHENERGAN 25 MG/ML VIAL IM STA (19:20)
[2018-08-22] MEDS ORDERED: DILAUDID 1 MG/ML SYRINGE IM STA ×2 (19:20→19:24)
--- NOTE | 2018-08-22 19:30 | ED.PDOC ---
General ED Provider: Dr. SAVANNA BOWMAN Chief Complaint: Headache Stated Complaint: headache for 3 days. Nausea Vomiting today x 3 Time Seen by Physician: 19:00 Mode of Arrival: Walk-In Information Source: Patient Primary Care Provider: HEAVENLY NELSON Nursing and Triage Documentation Reviewed and Agree: Yes Does patient meet sepsis criteria?: No System Inflammatory Response Syndrome: Not Applicable Sepsis Protocol: For patient's 13 years and over: Temp is 96.8 and below OR 101 and greater Pulse >90 BPM Resp >20/minute Acutely Altered Mental Status Are patient's symptoms suggestive of a new infection, such as: -Pneumonia -Skin, Soft Tissue -Endocarditis -UTI -Bone, Joint Infection -Implantable Device -Acute Abdominal Infection -Wound Infection -Meningitis -Blood Stream Catheter Infection -Unknown Neurological Complaint Exam - Headache Complaint/Exam Onset: Gradual Duration: 3 days Symptoms Are: Still present Timing: Constant Worst Headache Ever: No Initial Severity: Moderate Current Severity: Severe Location: Frontal Character: Reports: Dull, Throbbing Aggravating: Reports: Bright lights Alleviating: Reports: None Associated Signs and Symptoms: Reports: Nausea, Vomiting Related History: Reports: Similar episode. Denies: Recent trauma, Remote trauma Related Surgical History: Reports: None SAH Risk Factors: Reports: None Meningitis Risk Factors: Reports: None SDH Risk Factors: Reports: None Temporal Arteritis Risk Factors: Reports: Female Normal Head CT Within Last 12 Months: Yes Papilledema Present: No Temporal Artery Tenderness: Present: None Sinus Tenderness: Present: None TMJ Tenderness: Present: None Glascow Coma Scale (see protocol): 15 Meningeal Signs Positive: Yes Pain on Passive Flexion-Positive Kernig's: No ROM Limited In: No Limitiations Focal Weakness: Present: None Focal Sensory Loss: Present: None Gait: Normal Nystagmus Present: No Gag Reflex Present: Yes [id number]: Normal Findings Romberg Test Positive: No Babinski Sign: Negative Right, Negative Left Differential Diagnoses: Migraine, Tension Headache Review of Systems - Review Of Systems Constitutional: Reports: No symptoms Eyes: Reports: Photophobia Ears, Nose, Mouth, Throat: Reports: No symptoms Respiratory: Reports: No symptoms Cardiac: Reports: No symptoms GI: Reports: Nausea, Vomiting : Reports: No symptoms Musculoskeletal: Reports: No symptoms Skin: Reports: No symptoms Neurological: Reports: Headache Endocrine: Reports: No symptoms Hematologic/Lymphatic: Reports: No symptoms All Other Systems: Reviewed and Negative Past Medical History - Past Medical History Previously Healthy: Yes Endocrine: Reports: None Cardiovascular: Reports: Hypertension Respiratory: Reports: None Hematological: Reports: None Gastrointestinal: Reports: GERD Genitourinary: Reports: None Neuro/Psych: Reports: Migraine Musculoskeletal: Reports: None Cancer: Reports: None Last Menstrual Period: 2002 Other Pertinent Past Medical History: HYPOGLYCEMIA, HYDROCEPHALUS - Surgical History General Surgical History: Reports: Hysterectomy ([id number]), Other (sinus surgery 06/07/16, Lumbar puncture 06/21/16 shunt to brain 09/06/2016) - Family History Family History: Reports: Unknown - Social History Smoking Status: Never smoker Hx Substance Use: No Alcohol Screening: None - Immunizations Tetanus Shot up to Date: Yes Physical Exam - Physical Exam Appearance: Ill-appearing Pain Distress: Severe Neck: Supple Respiratory: Airway patent, Breath sounds clear, Breath sounds equal, Respirations nonlabored Cardiovascular: RRR, Pulses normal, No rub, No murmur GI/: Soft Musculoskeletal: Normal strength, ROM intact, No edema, No calf tenderness Skin: Warm, Dry, Normal color Neurological: Sensation intact, Motor intact, Reflexes intact, Cranial nerves intact, Alert, Oriented Psychiatric: Affect appropriate, Mood appropriate - NIH Stroke Scale 1a. Level of Consciousness: 0=Alert and keenly responsive 1b. Level of Consciousness Questions: 0=Answers correctly to two questions 1c. Level of Consciousness Commands: 0=Performs two tasks correctly 2. Best Gaze: 0=Normal 3. Visual: 0=No visual loss 4. Facial Palsy: 0=Normal 5a. Motor Left Arm: 0=No drift,arm holds 90 degrees for 10 sec., leg 30 degrees for 5 sec. 5b. Motor Right Arm: 0=No drift,arm holds 90 degrees for 10 sec., leg 30 degrees for 5 sec. 6a. Motor Left Le=No drift,arm holds 90 degrees for 10 sec., leg 30 degrees for 5 sec. 6b. Motor Right Le=No drift,arm holds 90 degrees for 10 sec., leg 30 degrees for 5 sec. 8. Sensory: 0=Normal 9. Best Language: 0=No aphasia 10. Dysarthria: 0=Normal 11. Extincion and Inattention: 0=Normal Stroke Scale Total: 0 Re-Evaluation - Re-Evaluation Time of Re-Evaluation: 20:00 Status: Improved Vital Signs Stable: Yes Critical Care Note - Critical Care Note Total Time (mins): 0 Course - Course Orders, Labs, Meds: Orders Category Date Time Status Hydromorphone HCl [Dilaudid 1 mg/ml Syringe] MEDS 08/22/18 19:20 Discontinued 1 mg IM ONCE STA Hydromorphone HCl [Dilaudid 1 mg/ml Syringe] MEDS 08/22/18 19:24 Discontinued 1 mg IM ONCE STA Promethazine HCl [Phenergan 25 mg/ml Vial] MEDS 08/22/18 19:20 Discontinued 25 mg IM ONCE STA Medications Discontinued Medications Generic Name Dose Route Start Last Admin Trade Name Freq PRN Reason Stop Dose Admin Hydromorphone HCl 1 mg 08/22/18 19:20 08/22/18 19:29 Dilaudid 1 Mg/Ml Syringe IM 08/22/18 19:21 1 mg ONCE STA Administration Hydromorphone HCl 1 mg 08/22/18 19:24 08/22/18 19:30 Dilaudid 1 Mg/Ml Syringe IM 08/22/18 19:25 1 mg ONCE STA Administration Promethazine HCl 25 mg 08/22/18 19:20 08/22/18 19:29 Phenergan 25 Mg/Ml Vial IM 08/22/18 19:21 25 mg ONCE STA Administration Vital Signs: Temp Pulse Resp BP Pulse Ox 08/22/18 18:51 97.2 F L 78 20 135/98 H 99 Departure - Departure Time of Disposition: 20:00 Disposition: HOME SELF-CARE Discharge Problem: Migraine headache Qualifiers: Migraine type: without aura Status migrainosus presence: without status migrainosus Intractability: not intractable Qualified Code(s): G43.009 - Migraine without aura, not intractable, without status migrainosus Instructions: Migraine Headache (ED) Condition: Fair Pt referred to PMD for follow-up: Yes IPMP verified?: No Additional Instructions: Continue home Medications follow up with PCP in 3 days Allergies/Adverse Reactions: Allergies azithromycin [From Zithromax] Adverse Reaction (Verified 08/22/18 18:58) Difficulty Swallowing butorphanol [From Stadol] Adverse Reaction (Verified 08/22/18 18:58) "MAKES ME LOOPY" clarithromycin [From Biaxin] Adverse Reaction (Verified 08/22/18 18:58) Vomiting dihydroergotamine Adverse Reaction (Verified 08/22/18 18:58) elevates Blood Pressure ketorolac tromethamine [From Toradol] Adverse Reaction (Verified 08/22/18 18:58) Difficulty Swallowing nalbuphine [From Nubain] Adverse Reaction (Verified 08/22/18 18:58) Vomiting propoxyphene napsylate [From Darvocet-N] Adverse Reaction (Verified 08/22/18 18: 58) Vomiting sumatriptan [From Imitrex] Adverse Reaction (Verified 08/22/18 18:58) Difficulty Swallowing sumatriptan succinate [From Imitrex] Adverse Reaction (Verified 08/22/18 18:58) Difficulty Swallowing warfarin sodium [From Coumadin] Adverse Reaction (Verified 08/22/18 18:58) vomiting allergy was not listed in allergy list as of 04/29/18 Home Medications: Ambulatory Orders Promethazine HCl [Phenergan Tab] 25 mg PO QID PRN #12 tablet 05/04/15 Topiramate [Trokendi Xr] 200 mg PO d 01/21/17 Butalbital/Aspirin/Caffeine [Fiorinal 50-325-40 Mg Capsule] 1 each PO BID PRN Diphenhydramine HCl [Benadryl] 25 mg PO BID PRN 01/27/18 Tramadol HCl [Ultram] 50 mg PO BEDTIME PRN 07/11/18 Disposition Discussed With: Patient
== END 2018-08-22 20:10 | disposition home or self-care (01) ==
LOC: ED 18:51
DX: G43.009 Migraine without aura, not intractable, without status migrainosus (principal)
CPT/HCPCS: 96372; 99282